=== PATIENT | male | born 1945 | race Caucasian/White ===

== ENCOUNTER 2022-05-02 12:41 | Observation (INO) | payer MEDICARE, SELFPAY ==
[2022-05-02] VITALS (14 sets, daily range): BP systolic 102–135; BP diastolic 47–70; PULSE 70–94; RESP 16–24; TEMP 36.4–37.1; O2SAT 78–96; BMI 38.0; BMI 38.6
--- NOTE | 2022-05-02 13:11 | XR_ITS ---
FINAL REPORT CLINICAL HISTORY: SOA FINDINGS: A single portable view of the chest was obtained. There is cardiomegaly with pulmonary vascular congestion. The mediastinum is within normal limits. There are bilateral pulmonary opacities which may represent pneumonia or edema. The bony thorax is intact. IMPRESSION: Bilateral pneumonia or edema. Reviewed, Interpreted and Dictated by Rm Jeffries III, MD Transcribed by Madiha Michael Authenticated and [facility]
[2022-05-02 13:20] LABS: Coronavirus 19, PCR Not Detected (NotDetected); Influenza A, PCR Not Detected (NotDetected); Influenza B, PCR Not Detected (NotDetected)
--- NOTE | 2022-05-02 13:22 | ECG_ITS ---
APPROVED REPORT Exam: Resting ECG HR:84 bpm ECG Measurements Heart Rate 84 AXES QRSd 86 QRS 89 QT 407 T 40 QTc 448 Conclusion ATRIAL FIBRILLATION ABNORMAL RHYTHM ECG UNCONFIRMED REPORT Electronically signed by : Markus Bravo MD 05/02/2022 19:57:14
[2022-05-02 13:31] LABS: Chloride 91 mmol/L (98-107); Potassium 3.2 mmoL/L (3.5-5.1); Sodium 138 mmol/L (136-145)
[2022-05-02 13:32] LABS: Basophils # 0.1 K/mm3 (0-0.2); Basophils % 0.9 % (0.1-2.0); Eosinophils # 0.5 K/mm3 (0.0-0.4); Eosinophils % 3.6 % (0.1-12.0); Hematocrit 45.8 % (42.0-52.0); Hemoglobin 14.7 g/dL (14.1-18.0); Lymphocytes # 1.2 K/mm3 (0.7-4.5); Lymphocytes % 8.9 % (10-50); Mean Corpuscular HGB Conc 32.1 g/dL (31.8-35.4); Mean Corpuscular Hemoglobin 31.7 pg (27.0-31.2); Mean Platelet Volume 8.7 fl (7.4-10.4); Monocytes # 0.7 K/mm3 (0.1-1.0); Monocytes % 5.1 % (1.7-9.3); Neutrophils # 11.1 K/mm3 (1.8-7.8); Neutrophils % 81.6 % (37.0-80.0); Platelet Count 232 K/mm3 (142-424); Red Blood Count 4.63 M/mm3 (4.60-6.20); Red Cell Distribution Width 14.7 % (11.5-17.5); White Blood Count 13.6 K/mm3 (4.8-10.8)
[2022-05-02 13:34] LABS: Alanine Aminotransferase 11 U/L (12-78); Albumin Level 3.5 g/dl (3.5-5.0); Alkaline Phosphatase 105 U/L (38-126); Anion Gap 12.2 mEq/L (5-15); Aspartate Amino Transferase 21 U/L (17-59); Bilirubin,Total 1.2 mg/dl (0.2-1.3); Blood Urea Nitrogen 8 mg/dl (9-20); Carbon Dioxide 38 mmol/L (22.0-30.0); Creatinine Clearance Estimated 101 mL/min (50-200); Estimated Glomerular Filt Rate 94 ml/min (>60); GFR (African American) 114 ML/MIN (>60); Globulin 3.6 g/dL (1.3-3.2); Glucose 189 mg/dl (74-100); Total Protein,Serum 7.1 g/dl (6.3-8.2)
[2022-05-02 13:41] LABS: Lactic Acid 2.5 mmol/L (0.7-2.1)
[2022-05-02 14:07] LABS: Troponin I < 0.01 ng/ml (0.00-0.034)
--- NOTE | 2022-05-02 14:24 | CA_ITS ---
APPROVED REPORT EXAM: Comprehensive 2D, Doppler, and color-flow Echocardiogram Pit Crane Operator: Sandy Barrera RVT Ht: 5 ft 8 in Wt: 250lbs BSA: 2.25 BP: 133/57 mmHg Indications: SOA,COPD,CHF,HTN,HLD,GERD VERY TDS-BEST EXAM POSSIBLE R/T BODY HABITUS OVERLAYING LUNG 2D Dimensions IVSd 1.35 cm M: 0.6-1.2 LVEF (Visual) 67.20 % PWd 1.35 cm M: 0.6 - 1.2 LVDd 2.98 cm M: 4.2 - 5.9 LVDs 1.91 cm M: 2.5 - 4.0 LVOT 2.29 cm (M/F) 1.5-2.5 M-Mode Dimensions RVDd 3.60 cm (0.9-2.6) LA Diam 5.11 cm (1.9-4.0) LVDd 4.06 cm (3.5-5.7) Ao Diam 3.39 cm (2.0-3.7) IVSd 0.74 cm (0.6-1.1) PWd 0.86 cm (0.6-1.1) EDV (Teich) 72.50 mL LV Diastology E Decel Time 263.00 (160-240 msec) E/A Ratio 0.8 MED E' 5.80 (< 7 cm/sec) E'/MED E' Ratio 17.12 (>14) LAT E' 8.40 (<10 cm/sec) E/LAT E' Ratio 11.82 (>14) Aortic Valve AO Peak GR. 4.80 mmHg Mitral Valve MV E Max Mt. 99.00 (40-130 cm/s) MV A Velocity 120.00 (40-130 cm/s) E/A Ratio 0.83 MV Decel. Time 263.00 (160-240 ms) MV PHT 77.00 ms Pulmonary Valve PV Peak Velocity 74.00 (50-150 cm/s) Tricuspid Valve TR P. Velocity 301.00 cm/s RAP Estimate 10.00 mmHg RVSP 46.20 mmHg Left Ventricle Technically difficult study because of the patient factors and poor acoustic windows. Left atrium is mildly enlarged, left ventricle is normal size mild concentric left ventricular hypertrophy, estimated ejection fraction 55% with no regional wall motion abnormality, grade 1 diastolic dysfunction seen without tissue Doppler evidence of raise left atrial pressure. Right Ventricle Right atrium and right ventricle are moderately enlarged, contractility of the right ventricle is moderately reduced. Aortic Valve Aortic valve is thickened and calcified without aortic stenosis or aortic insufficiency. Mitral Valve Mitral valve leaflets are minimally thickened, there is mild mitral regurgitation. Tricuspid Valve Tricuspid valve is grossly normal, there is mild tricuspid regurgitation, tricuspid regurgitation jet velocity is inadequate for calculation of the right ventricular systolic pressure. Pulmonic Valve Pulmonic valve is poorly visualized. Great Vessels Aortic root is normal size. Inferior vena cava is mildly dilated with normal inspiratory collapse. Pericardium No significant pericardial effusion noted. Conclusion 1. Technically difficult study because of the patient factors and poor acoustic windows. 2. Biatrial enlargement, normal left ventricular size mild concentric left ventricular hypertrophy, estimated ejection fraction 55% with no regional wall motion abnormality, grade 1 diastolic dysfunction seen without tissue Doppler evidence of raise left atrial pressure. 3. Moderately enlarged right ventricle with moderate reduction right ventricular systolic function. 4. Mild mitral and tricuspid regurgitation. 5. No significant pericardial effusion noted. 6. Inferior vena cava is mildly dilated with normal inspiratory collapse. Electronically signed by : Ghanshyam Gonsales MD 05/03/2022 06:24:36
--- NOTE | 2022-05-02 14:31 | HMH.EDGENADL ---
Discharge Plan Disposition Patient Disposition: Admitted as Observation Condition: Fair Prescriptions Prescriptions: No Action bumetanide 2 mg Tablet 2 mg PO DAILY hydrocodone-acetaminophen [Lortab 7.5-325] 7.5-325 mg Tablet 1 tab PO TID PRN (Reason: Pain) pantoprazole 40 mg Tablet,Delayed Release (Dr/Ec) 40 mg PO DAILY metoprolol tartrate 50 mg Tablet 50 mg PO BID aspirin 81 mg Tablet 81 mg PO DAILY rosuvastatin 5 mg Tablet 5 mg PO DAILY alfuzosin 10 mg Tablet Extended Release 24 Hr 10 mg PO DAILY Rx Instructions: administer after the same meal each day Xarelto 20 mg Tablet 20 mg PO DAILY Rx Instructions: must administer with evening meal glipizide 5 mg Tablet Extended Release 24hr 5 mg PO DAILY paroxetine HCl 20 mg Tablet 20 mg PO DAILY Referrals Follow up/Referrals: Travis Knapp MD [Primary Care Provider] - See instructions Clinical Impressions Clinical Impression: Congestive heart failure, Acute and chronic respiratory failure with hypoxia Discharge ED Provider: Edi Up General Adult HPI General Chief complaint: Shortness of Breath/Dyspnea Stated complaint: sob, leg weakness, dizzy Time Seen by Provider: 05/02/22 14:11 Mode of Arrival: Wheelchair Source of Information: Patient Limitations: No Limitations Description of Symptoms (Recalled from ER Triage Doc. by RN): Pt c/o SOA, weakness, and wheeping of BLE. History of Present Illness HPI narrative: History obtained from patient and his niece. He complains of shortness of breath, weakness, dyspnea on exertion. Symptoms are chronic, but he seems to be declining and his niece says that today he was much worse and therefore brings him to the emergency department. Increased swelling of his legs recently. Also has what appears to be a ruptured vesicle on his left leg which is weeping which he just noticed this morning. Denies fever. He has a nonproductive cough. He has COPD. He says that he has been told that he has congestive heart failure as well. He does not have a bath steward but he thinks he may need one. He is a former smoker. He is on oxygen 2 L nasal cannula at home at all times. He says that even wearing his oxygen recently he cannot walk across the room without getting very short of breath. He was admitted to [facility] in July for pneumonia, states he had to be moved to the ICU. He had an episode of rapid heartbeat. He is on Xarelto, he is uncertain why he is on this, he does not know whether his rapid heartbeat was atrial fibrillation. He does note that he has had previous left carotid artery surgery and thinks he might be on the blood thinner because of that. No known h/o DVT/PE. His niece says that she will not take him back to [facility] and this was the next closest hospital, therefore brought him here. He has never been to this hospital before. Nurse states that patient arrived without oxygen on and pulse ox was in the 70s. He was put on 2 L nasal cannula with mild improvement. Flow rate increased to 3 L nasal cannula and pulse ox went to 100%, then was able to be titrated down to 2 L nasal cannula with pulse ox maintaining greater than 90%. Related Data Home Medications Medication Instructions Recorded Confirmed alfuzosin 10 mg tablet,extended 10 mg PO DAILY urination 05/02/22 05/02/22 release 24 hr aspirin 81 mg tablet 81 mg PO DAILY heart 05/02/22 05/02/22 bumetanide 2 mg tablet 2 mg PO DAILY Heart failure 05/02/22 05/02/22 glipizide 5 mg tablet, extended 5 mg PO DAILY Diabetes 05/02/22 05/02/22 release 24 hr hydrocodone 7.5 mg-acetaminophen 1 tab PO TID PRN Pain 05/02/22 05/02/22 325 mg tablet metoprolol tartrate 50 mg tablet 50 mg PO BID Hypertension 05/02/22 05/02/22 pantoprazole 40 mg tablet,delayed 40 mg PO DAILY GERD 05/02/22 05/02/22 release paroxetine HCl 20 mg tablet 20 mg PO DAILY mood 05/02
[2022-05-02 14:41] LABS: ABG Base Excess 8.1 mmol/L (-2.4-2.3); ABG HCO3 31.8 mmhg (22.0-26.0); ABG Oxygen Saturation 89 % (90-100); ABG PCO2 44.9 mmhg (35.0-45.0); ABG PH 7.47 mmol/L (7.35-7.45); ABG PO2 57.3 mmhg (80-100); ABG TCO2 33.2 mmhg (23-27)
--- NOTE | 2022-05-02 14:41 | PC.NURSE ---
PT ASSISTED INTO GOWN. PT MADE AWARE THAT HE WILL BE HAVING AN ECHO. URINAL GIVEN. FAMILY AT BEDSIDE.
[2022-05-02 14:43] LABS: Allen's Test ACCEPTABLE; Oxygen 2LPM %; Source Right Radial
[2022-05-02 14:46] LABS: NT Pro Brain Natriuretic Pep. 2670 pg/mL (0-450)
--- NOTE | 2022-05-02 15:32 | PC.NURSE ---
Pt had 450ML urine output.
--- NOTE | 2022-05-02 17:21 | PC.NURSE ---
Pt arrived to the floor at this time
--- NOTE | 2022-05-02 17:38 | EXP.HP ---
History of Present Illness *Admission Date: 05/02/22 *Reason for visit:: swelling in legs, short of breath *History of present illness: Mr. Robbins is a 77-year-old male with history of COPD on chronic oxygen (2 L), type 2 diabetes on daily insulin, daily anticoagulation (unknown as to why), and chronic pain. He presented to the ER via private car with his niece because of complaint of shortness of breath, weakness, orthopnea. He has chronic shortness of breath but it is gotten worse over the past 4 to 6 weeks per his report. Over the past 2 days he has been able to sleep due to dyspnea at night. Increased swelling in his legs over the past 1 to 2 weeks. His niece has noticed some weeping in his legs (especially the left leg) and development of blisters. He denies any fevers, cough is dry and productive. Denies any confusion, chest pain, nausea or vomiting. He reports having been told that he has a history of congestive heart failure but has never seen cardiology and does not know the last time he had an echo. He is a former smoker, but no tobacco use in years. Continues to dip. Lives at home by himself as his is in a intermediate. Is cared for by family who check on him couple times a week. On arrival to the ER he was hypoxic on room air. Placed back on 2 L with improvement, required 3 however to get to mid 90s for saturations. Has increased work of breathing, respiratory rate in the mid 20s. Pleasant on interview. History obtained from patient and niece at bedside. [facility] Medical History CHF (congestive heart failure) COPD (chronic obstructive pulmonary disease) Diabetes GERD (gastroesophageal reflux disease) Hyperlipidemia Hypertension Family History (Updated 05/02/22 @ 18:40 by Tad Bean MD) No significant family history Social History (Updated 05/02/22 @ 18:41 by Tad Bean MD) Smoking Status: Former smoker alcohol intake: never substance use type: denies use current occupational status: retired Travel in the last 8 weeks: None household members: none lives independently: Yes marital status: diet: diabetic physical activity: none Review of Systems Review of Systems Review of systems:: pertinent systems reviewed and negative unless documented below Constitutional Constitutional: Reports weakness *Musculoskeletal Musculoskeletal: Denies numbness *Neurologic Neurologic: Denies numbness and Reports weakness Meds Home Medications and Allergies Home Medications Medication Instructions Recorded Confirmed Type albuterol sulfate 90 mcg/actuation 2 puff inhalation QID PRN 05/02/22 05/02/22 History aerosol inhaler Shortness Of Breath alfuzosin 10 mg tablet,extended 10 mg PO DAILY urination 05/02/22 05/02/22 History release 24 hr aspirin 81 mg tablet 81 mg PO DAILY heart 05/02/22 05/02/22 History bumetanide 2 mg tablet 2 mg PO DAILY Heart failure 05/02/22 05/02/22 History glipizide 5 mg tablet, extended 5 mg PO DAILY Diabetes 05/02/22 05/02/22 History release 24 hr hydrocodone 7.5 mg-acetaminophen 1 tab PO TID PRN Pain 05/02/22 05/02/22 History 325 mg tablet insulin glargine 100 40 unit SQ DAILY Diabetes 05/02/22 05/02/22 History unit-lixisenatide 33 mcg/mL subcutaneous pen (Soliqua 100/33) metoprolol tartrate 50 mg tablet 50 mg PO BID Hypertension 05/02/22 05/02/22 History pantoprazole 40 mg tablet,delayed 40 mg PO DAILY GERD 05/02/22 05/02/22 History release paroxetine HCl 20 mg tablet 20 mg PO DAILY mood 05/02/22 05/02/22 History rivaroxaban 20 mg tablet (Xarelto) 20 mg PO DAILY Blood thinner 05/02/22 05/02/22 History rosuvastatin 5 mg tablet 5 mg PO DAILY Cholesterol 05/02/22 05/02/22 History New Prescriptions to Start Prescriptions: Allergies Allergy/AdvReac Type Severity Reaction Status Date / Time Sulfa (Sulfonamide Allergy Verified 05/02/22 13:10 Antibiotics) Exam
[2022-05-02 17:40] LABS: Reflex Lactic Add Lactic Reflex
[2022-05-02 18:23] LABS: Lactic Acid Follow Up (RFLX 1) 1.8 mmol/L (0.7-2.1)
[2022-05-02 21:52] LABS: POC Glucose,Bedside 189 (70-110)
[2022-05-03] VITALS (11 sets, daily range): BP systolic 99–114; BP diastolic 43–71; PULSE 62–83; RESP 17–21; TEMP 36.4–36.9; O2SAT 89–94; BMI 37.7
--- NOTE | 2022-05-03 04:34 | PC.NURSE ---
pt restless through the night and slept at intervals, pt is alert and oriented x4, no acute distress, lung sounds with scattered crackles noted, BLE edema, skin tear wound noted to LLE and wrap with xeroform, abd and kerlex, BLE noted with redness and warm to touch, abd large round and distended, active BS, voiding without difficulty, 02 sats 90-91% on 3L pnc, pt complained of generalized pain, lortab given with relief, VSS, pt is alert and oriented x4, no other issues or concerns at this time.
[2022-05-03 06:31] LABS: Chloride 93 mmol/L (98-107); Potassium 3.8 mmoL/L (3.5-5.1); Sodium 138 mmol/L (136-145)
[2022-05-03 06:33] LABS: Blood Urea Nitrogen 9 mg/dl (9-20); Creatinine Clearance Estimated 100 mL/min (50-200); Estimated Glomerular Filt Rate 94 ml/min (>60); GFR (African American) 114 ML/MIN (>60)
[2022-05-03 06:34] LABS: Alanine Aminotransferase 8 U/L (12-78); Alkaline Phosphatase 100 U/L (38-126); Anion Gap 12.8 mEq/L (5-15); Aspartate Amino Transferase 15 U/L (17-59); Bilirubin,Total 0.7 mg/dl (0.2-1.3); Calcium 7.4 mg/dl (8.4-10.2); Carbon Dioxide 36 mmol/L (22.0-30.0); Globulin 3.1 g/dL (1.3-3.2); Glucose 263 mg/dl (74-100); Total Protein,Serum 6.1 g/dl (6.3-8.2)
[2022-05-03 06:35] LABS: Magnesium 1.7 mg/dl (1.6-2.3)
[2022-05-03 06:42] LABS: Basophils # 0.1 K/mm3 (0-0.2); Basophils % 0.7 % (0.1-2.0); Eosinophils # 0.6 K/mm3 (0.0-0.4); Eosinophils % 5.6 % (0.1-12.0); Hematocrit 46.1 % (42.0-52.0); Hemoglobin 14.1 g/dL (14.1-18.0); Lymphocytes # 1.2 K/mm3 (0.7-4.5); Lymphocytes % 11.7 % (10-50); Mean Corpuscular HGB Conc 30.5 g/dL (31.8-35.4); Mean Corpuscular Hemoglobin 30.6 pg (27.0-31.2); Mean Corpuscular Volume 100.3 fl (80-94); Mean Platelet Volume 9.1 fl (7.4-10.4); Monocytes # 0.7 K/mm3 (0.1-1.0); Monocytes % 6.7 % (1.7-9.3); Neutrophils # 7.8 K/mm3 (1.8-7.8); Neutrophils % 75.4 % (37.0-80.0); Platelet Count 214 K/mm3 (142-424); Red Cell Distribution Width 14.7 % (11.5-17.5); White Blood Count 10.3 K/mm3 (4.8-10.8)
[2022-05-03 06:43] LABS: POC Glucose,Bedside 268 (70-110)
--- NOTE | 2022-05-03 08:29 | HMH.PHAINT1 ---
Pharmacy Intervention Comments: HOME MEDICATION RECONCILIATION COMPLETED USING OUTPATIENT PHARMACY LIST.
--- NOTE | 2022-05-03 09:06 | EXP.CARD.CON ---
History of Present Illness History of Present Illness Consult date: 05/03/22 Requesting physician: Tad Bean Consult reason: congestive heart failure Chief complaint: Lower extremity edema and shortness of breath Additional Medical History:: Significant past medical history IDDM Chronic hypoxic respiratory failure HFpEF COPD Mixed hyperlipidemia Essential hypertension Chronic OAC use-patient is unclear why Former smoker currently dip Carotid disease Echo 05/02/2022 Conclusion 1.? Technically difficult study because of the patient factors and poor acoustic windows. 2.? Biatrial enlargement, normal left ventricular size mild concentric left ventricular hypertrophy, estimated ejection fraction 55% with no regional wall motion abnormality, grade 1 diastolic dysfunction seen without tissue Doppler evidence of raise left atrial pressure. 3.? Moderately enlarged right ventricle with moderate reduction right ventricular systolic function. 4.? Mild mitral and tricuspid regurgitation. 5.? No significant pericardial effusion noted. 6.? Inferior vena cava is mildly dilated with normal inspiratory collapse. History of present illness: 77-year-old white male with above past medical history, presented to ER yesterday with complaints of progressive and worsening shortness of breath and bilateral lower extremity edema over the last 4 to 6 weeks. Patient does have a history of COPD which requires chronic oxygen use at 2 L. Patient states that for the last couple of days has not been able to sleep due to orthopnea and that LE edema is getting worse. Niece went to check on him yesterday and noticed blisters and swelling to legs prompting her to bring him to ED (left worse than right). On presentation to ER patient was hypoxic on room air which improved with 2L NC, ultimately requiring 3L to maintain sat in the mid 90s. Chest x-ray showed bilateral pneumonia or edema. EKG showedNSR rate of 84 with occasional PACs. Labs were significant as follows: WBC 13.6, potassium 3.2, creatinine 0.8, glucose 189, lactate 2.5, proBNP 2670. Arterial blood gas as follows: pH 7.4, PCO2 44.9, PO2 57.3, HCO3 31.8, O2 saturation 89, base excess 8.1. Patient reports that he does have a history of congestive heart failure, however, has never seen a cardiology. States that he was inpatient at [facility] in July 2021 for pneumonia and during that time had an episode of a fast heart rate. Patient unable to verify if the heart rate was A. fib. Patient takes Xarelto 20 mg daily, but is unsure why. Reports previous left carotid artery surgery. This morning patient is resting comfortably in bed in low fowlers position, reports breathing is better today. Denies current chest pain or recent history of chest pain. [facility] Medical History CHF (congestive heart failure) COPD (chronic obstructive pulmonary disease) Diabetes GERD (gastroesophageal reflux disease) Hyperlipidemia Hypertension Family History (Updated 05/02/22 @ 18:40 by Tad Bean MD) Other No significant family history Social History (Updated 05/02/22 @ 18:41 by Tad Bean MD) Smoking Status: Former smoker alcohol intake: never substance use type: denies use current occupational status: retired Travel in the last 8 weeks: None household members: none lives independently: Yes marital status: diet: diabetic physical activity: none additional social history: is a resident of [facility]. Review of Systems Constitutional Constitutional: Reports weakness *Musculoskeletal Musculoskeletal: Denies numbness *Neurologic Neurologic: Denies numbness and Reports weakness Exam Data for Last 24 hours Vital signs and Labs for Last 24 Hours: Temp Pulse Resp BP Pulse Ox 98.4 F 67 21 99/45 L 90 L 05/03/22 08:00 05/03/22 08:00 05/03/22 08:00 05/03/22 08:00 05/03/22 08:00
--- NOTE | 2022-05-03 09:09 | CA_ITS ---
FINAL REPORT CLINICAL HISTORY: edema, redness, wounded left lower leg FINDINGS: Color Doppler, duplex Doppler and compression sonography of the bilateral lower extremities was performed. There is no evidence of deep venous thrombosis from the level of the groin to the calf. Unable to assess left lower leg due to wound dressing. The deep veins are patent and compressible. IMPRESSION: No evidence of deep venous thrombosis bilateral lower extremities, however unable to assess left lower leg due to wound dressing. Reviewed, Interpreted and Dictated by Rm Jeffries III, MD Transcribed by Klarissa Rojas Authenticated and [facility]
--- NOTE | 2022-05-03 09:41 | CA_ITS ---
FINAL REPORT TECHNIQUE: Color Doppler, duplex Doppler and coffman scale sonography of the bilateral neck arterial vasculature was performed. Velocities were measured in the carotid arteries. Stenosis evaluation based on the validated velocity criteria. CLINICAL HISTORY: ZAIN,HX LT ENDARDECTOMY FINDINGS: The peak systolic velocity of the right common carotid artery is 65 cm/s. The peak systolic velocity of the right internal carotid artery is 153 cm/s and end diastolic velocity 58 cm/s. The ICA/CCA ratio is 2.6. A small to moderate amount of plaque is present. The right external carotid artery is patent. The right vertebral artery is patent with antegrade flow. The peak systolic velocity of the left common carotid artery is 98 cm/s. The peak systolic velocity of the left internal carotid artery is 81 cm/s and end diastolic velocity 26 cm/s. The ICA/CCA ratio is 1.1. A small to moderate amount of plaque is present. The left external carotid artery is patent.The left vertebral artery is patent with antegrade flow. IMPRESSION: Less than 50% bilateral carotid stenoses. Bilateral patent vertebral arteries with antegrade flow. If indicated, CTA or MRA could further evaluate. Reviewed, Interpreted and Dictated by Rm Jeffries III, MD Transcribed by Klarissa Rojas Authenticated and . [facility]
--- NOTE | 2022-05-03 09:55 | HMH.OTEV ---
OT Inpatient Evaluation Rehab OT IP Evaluation Start: 05/03/22 07:00 Freq: ONCE Status: Active Protocol: Document 05/03/22 09:40 EMIR (Rec: 05/03/22 09:55 [id number] Rehab OT IP Assessment Subjective History Pt oriented x 3 on arrival. Pt agreeable to engage in therapy evaluation. Pt was admitted via ED on 05/02/22 due to swelling in legs and shortness of breath. Pt reports prior to being admitted to the hospital he was living at home alone. Pt explains his is currently residing at [facility]. Pt also explains within the past 3 months he has been experiencing a decline in health and independence with ADLs/IADLs. Pt's niece completes all IADLs for him. He claims to be independent with dressing. However during evaluation pt was dependent upon therapist to don socks. He did not provide a definite answer when asked how he showers. Pt does wear oxygen at all times at home. He still drives. He does not use a walker or cane during ambulation. Subjective I do what I can. Objective Patient Orientation Person,Place,Birthday Upper Extremity Gross ROM Min Limitation <25% Shoulder ROM Limitations Muscle Weakness Elbow ROM Limitations Muscle Weakness Wrist Limitations of Range of Motion Muscle Weakness Bed Mobility bed mobility-scooting,bed mobility - supine/sit,bed mobility - rolling Assist Level Minimal x 1 (25% assist) Transfer Training Sit/Stand Transfer Assist Level Contact Guard/Hand Hold Chair Transfer Ability Contact Guard/Hand Hold Chair Transfer Technique Sit to/from Ambulatory Chair Transfer Assistive Devices None Lower Body Dressing Ability Maximum Assistance Rehab OT IP prob,goals,plan Problems Date of Evaluation: 05/03/22 OT IP Problems Bed Mobility,Transfers,Balance ,
--- NOTE | 2022-05-03 10:09 | EXP.ACUTE.PN ---
Subjective *Date: 05/03/22 *Time: 12:56 Interval history: Mr. Robbins did well overnight. Still tolerating 3 L nasal cannula oxygen. States that shortness of breath is somewhat better, was able to sleep laying down on his side. Diuresed quite well with IV Bumex. -1.8 L since admission. Denies any chest pain, nausea, vomiting. Tolerating fair p.o. intake. Still having swelling in his legs but marginally improved on exam. Still complains of tenderness with his edema. No confusion. Of note, bedbugs found this morning after morning rounds. Patient decontaminated. Medical Exam Vital signs and Labs for Last 24 Hours: Temp Pulse Resp BP Pulse Ox 98.4 F 67 21 99/45 L 90 L 05/03/22 08:00 05/03/22 08:00 05/03/22 08:00 05/03/22 08:00 05/03/22 08:00 Laboratory Results - last 24 hr 05/02/22 13:05: WBC 13.6 H, RBC 4.63, Hgb 14.7, Hct 45.8, MCV 99.0 H, MCH 31.7 H, MCHC 32.1, RDW 14.7, Plt Count 232, MPV 8.7, Neut % (Auto) 81.6 H, Lymph % (Auto) 8.9 L, [place] % (Auto) 5.1, Eos % (Auto) 3.6, Baso % (Auto) 0.9, Neut # (Auto) 11.1 H, Lymph # (Auto) 1.2, [place] # (Auto) 0.7, Eos # (Auto) 0.5 H, Baso # (Auto) 0.1 05/02/22 13:05: Sodium 138, Potassium 3.2 L, Chloride 91 L, Carbon Dioxide 38 H, Anion Gap 12.2, BUN 8 L, Creatinine 0.80, Estimated Creat Clear 101, Estimated GFR 94, Est GFR ( Amer) 114, Glucose 189 H, Calcium 8.0 L, Total Bilirubin 1.2, AST 21, ALT 11 L, Alkaline Phosphatase 105, Troponin I < 0.01, Total Protein 7.1, Albumin 3.5, Globulin 3.6 H, Albumin/Globulin Ratio 1.0 L 05/02/22 13:05: Lactate 2.5 H 05/02/22 13:05: NT-Pro-B Natriuret Pep 2670 H 05/02/22 13:14: SARS-CoV-2 (PCR) Not detected, Influenza A Untype (PCR) Not detected, Influenza Type B (PCR) Not detected 05/02/22 14:27: Specimen Source Right radial, O2 % 2lpm, ABG pH 7.47 H, ABG pCO2 44.9, ABG pO2 57.3 L, ABG HCO3 31.8 H, ABG Total CO2 33.2 H, ABG O2 Saturation 89 L, ABG Base Excess 8.1 H, Edmundo Test Acceptable 05/02/22 17:55: Lactate 1.8 05/02/22 21:14: POC Glucose 189 H 05/03/22 05:45: WBC 10.3, RBC 4.60, Hgb 14.1, Hct 46.1, MCV 100.3 H, MCH 30.6, MCHC 30.5 L, RDW 14.7, Plt Count 214, MPV 9.1, Neut % (Auto) 75.4, Lymph % (Auto) 11.7, [place] % (Auto) 6.7, Eos % (Auto) 5.6, Baso % (Auto) 0.7, Neut # (Auto) 7.8, Lymph # (Auto) 1.2, [place] # (Auto) 0.7, Eos # (Auto) 0.6 H, Baso # (Auto) 0.1 05/03/22 05:45: Sodium 138, Potassium 3.8, Chloride 93 L, Carbon Dioxide 36 H, Anion Gap 12.8, BUN 9, Creatinine 0.80, Estimated Creat Clear 100, Estimated GFR 94, Est GFR ( Amer) 114, Glucose 263 H D, Calcium 7.4 L, Magnesium 1.7, Total Bilirubin 0.7, AST 15 L D, ALT 8 L D, Alkaline Phosphatase 100, Total Protein 6.1 L, Albumin 3.0 L D, Globulin 3.1, Albumin/Globulin Ratio 1.0 L 05/03/22 06:33: POC Glucose 268 H I & O for Labs for Last 24 Hours: Intake & Output 04/30/22 05/01/22 05/02/22 05/03/22 23:59 23:59 23:59 23:59 Intake Total 240 / 360 120 / 120 Output Total 1650 / 1650 575 / 575 Balance -1410 / -1290 -455 / -455 Weight 115.354 kg 112.973 kg Head: Present atraumatic and normocephalic Eyes: Absent eye discharge ENT: Present normal exam and mucous membranes moist Neck: Present normal inspection Respiratory: Present accessory muscle use and diminished air movement; Absent wheezes or crackles Cardiac: Present Reg Rate and Rhythm and S1/S2; Absent No Murmur or pedal pulses present Comment:: peripheral pulses diminished, identified with doppler. GI: Present soft and other (protuberant) Rectal (male): Present deferred (male): Present deferred Extremities: Present edema; Absent clubbing or cyanosis Skin: Present intact and erythema (bilateral legs, no warmth; ruptured blister of left keating, clean bandage in place.); Absent cyanosis Neuro: Present alert and oriented x 3; Absent Numbness Assessment and Plan *Assessment and plan (1) Acute on chronic heart failure with preserved ejection fraction (HFpEF): Status: Acute Category: Medical Code(s):
--- NOTE | 2022-05-03 11:09 | HMH.PTWOUND ---
Rehab Inpt Wound Evaluation Rehab IP Wound Evaluation Start: 05/03/22 09:09 Freq: ONCE Status: Active Protocol: Document 05/03/22 11:04 MYRANDA (Rec: 05/03/22 11:08 PHORSHIMA [id number]) Rehab PT Wound Assessment Subjective Subjective Pt is 77 yowm adm to [facility] with COPD and CHF exac. He has suffered increased SOA and generalized weakness for several wks now. He also presents with L anterior keating wound present for 2-3 days. He reports he lives alone, no steps to enter the home, uses a cane for ambulation sometimes . Wound Left Posterior Keating Wound Type Stasis Ulcer Is This a Chronic Wound No Wound Length (cm) 7.3 Wound Width (cm) 3.8 Wound Depth (cm) 0 Wound Bed Appearance Beefy Red Percentage Granulated (%) 100 Wound Margins Description Macerated Surrounding Tissue Appearance Wood-Ridge Edema Type Pitting Edema Degree 2+ Query Text:1+ Trace, Barely Detectable, Rebound 15-30 seconds 2+ Moderate, Slight Indentation, Rebound 10-20 seconds 3+ Deep, Deeper Indentation, Rebound > 30 seconds 4+ Very Deep, Rebound > 60 seconds Edema Appearance Puffy Wound Drainage Description Serous Drainage Amount Moderate Dressing Status Changed Wound Topical Solution/Irrigant Saline Irrigant Primary Dressing Unna Boot Wound Secondary Dressing Type Gauze Roll/Wrap,Adhering Gauze Roll Wound Debridement Method Gauze Wound Debridement Amount of Tissue Minimal Removed Dressing Change Patient Tolerance Tolerated Well Plan/Recommendation Comment Plan for unna boot dressing changes performed by PT or NSG staff as needed once every 3- 4 days until d/c. after d/c he will need short term rehab vs for dressing changes. Eval Complexity Eval Charge Codes 31577 - Moderate Complexity PHYSICIAN CERTIFICATION: I certify the specified therapy services for Rm Robbins are required, authorized, and reviewed every 30 days.
--- NOTE | 2022-05-03 11:11 | HMH.PTEV ---
Physical Therapy Evaluation Rehab PT IP Evaluation Start: 05/03/22 07:56 Freq: ONCE Status: Active Protocol: Document 05/03/22 11:09 PHORSHIMA (Rec: 05/03/22 11:11 PHORNE [id number]) Subjective/History History History Pt is 77 yowm adm to [facility] with COPD and CHF exac. He has suffered increased SOA and generalized weakness for several wks now. He also presents with L anterior keating wound present for 2-3 days. He reports he lives alone, no steps to enter the home, uses a cane for ambulation sometimes . Subjective Subjective TTP: 2/4 in L lower leg. 2+ pitting edema noted. Rehab PT IP Eval Objective Appearance Patient Behavior Appropriate Patient Orientation Person,Place,Time Difficulty following instructions none Speech Pattern Clear Ambulation Patient Able to Ambulate Yes Ambulation Observation IP General Gait Pattern Observation Wide Based Gait,Shuffling Step Ambulation Distance (feet) 15 Ambulation Assistive Device None Ambulation Ability Contact Guard/Hand Hold Balance Ability to Arise Able, uses arms to help Sitting Balance Steady, safe Standing Balance Steady, wide stance Dynamic Sitting Balance Ability Good Dynamic Standing Balance Ability Fair Transfers Bed Transfer Ability Contact Guard/Hand Hold Chair Transfer Ability Minimal x 1 (25% assist) Sit to Stand Bed Transfer Ability Minimal x 1 (25% assist) Sit to Stand Chair Transfer Ability Minimal x 1 (25% assist) Rehab PT IP prob,goals,plan Problems Date of Evaluation: 05/03/22 PT IP Problems Bed Mobility,Transfers,Gait, Self care Rehab Potential Rehab Potential Good Plan PT Intervention Plan Bed Mobility,Transfers,Gait, Self care,Safety,Therapeutic Exercise PT Plan Frequency BID Duration LOS Discharge Goals Bed Transfer Ability Contact Guard/Hand Hold Sit to Stand Chair Transfer Ability Contact Guard/Hand Hold Ambulation Assistive Device None Ambulation Distance (feet) 25 Discharge Plan PT Discharge Plan Pt is most appropriate for rehab placement at this time, If he does return home he will need HHPT for further
[2022-05-03 11:19] LABS: Chol/HDL Ratio 3.7 (1-3.5); Cholesterol 81 mg/dl (140-200); HDL Cholesterol 22 mg/dl (40-60); Triglycerides 85 mg/dl (30-150); VLDL Cholesterol 17 mg/dL (0-40)
[2022-05-03 11:30] LABS: Direct LDL Cholesterol 43.21 mg/dL (100-129)
--- NOTE | 2022-05-03 11:50 | HMH.OTEV ---
OT Inpatient Evaluation Rehab OT IP Evaluation Start: 05/03/22 07:00 Freq: ONCE Status: Active Protocol: Document 05/03/22 09:40 EMIR (Rec: 05/03/22 09:55 [id number] Rehab OT IP Assessment Subjective History Pt oriented x 3 on arrival. Pt agreeable to engage in therapy evaluation. Pt was admitted via ED on 05/02/22 due to swelling in legs and shortness of breath. Pt reports prior to being admitted to the hospital he was living at home alone. Pt explains his is currently residing at [facility]. Pt also explains within the past 3 months he has been experiencing a decline in health and independence with ADLs/IADLs. Pt's niece completes all IADLs for him. He claims to be independent with dressing. However during evaluation pt was dependent upon therapist to don socks. He did not provide a definite answer when asked how he showers. Pt does wear oxygen at all times at home. He still drives. He does not use a walker or cane during ambulation. Subjective I do what I can. Objective Patient Orientation Person,Place,Birthday Upper Extremity Gross ROM Min Limitation <25% Shoulder ROM Limitations Muscle Weakness Elbow ROM Limitations Muscle Weakness Wrist Limitations of Range of Motion Muscle Weakness Bed Mobility bed mobility-scooting,bed mobility - supine/sit,bed mobility - rolling Assist Level Minimal x 1 (25% assist) Transfer Training Sit/Stand Transfer Assist Level Contact Guard/Hand Hold Chair Transfer Ability Contact Guard/Hand Hold Chair Transfer Technique Sit to/from Ambulatory Chair Transfer Assistive Devices None Lower Body Dressing Ability Maximum Assistance Rehab OT IP prob,goals,plan Problems Date of Evaluation: 05/03/22 OT IP Problems Bed Mobility,Transfers,Balance ,
[2022-05-03 12:13] LABS: POC Glucose,Bedside 139 (70-110)
--- NOTE | 2022-05-03 13:14 | SW/DCPLANNER ---
Addendum entered by Becky Smith 05/05/22 12:33: Marylu chisholm/ [facility] stated they will deliver portable O2 tank to [facility] for transport. Addendum entered by Becky Smith 05/05/22 09:28: This patient has been approved to discharge to [facility] level of care today. COVID swab has been collected and resulted negative. Patient will discharge today. Addendum entered by Becky Smith 05/04/22 09:31: This patient has been accepted to [facility] level of care pending precert. Per Roderick chisholm/ [facility] precert has been started at this time. I will update patient and Dr Bean. Original Note: I spoke with this patient regarding plans once medically stable for discharge. PT/OT has recommended SNF level of care at time of discharge. Patient stated that he resides in [place] and his is currently placed at [facility]. Patient is agreeable to placement at [facility]. I have attempted to contact Admission's at [facility]: no answer at this time/patient information has been faxed. Patient could be ready for discharge tomorrow.
[2022-05-03 16:15] LABS: POC Glucose,Bedside 165 (70-110)
--- NOTE | 2022-05-03 20:04 | PC.NURSE ---
Pt is A/Ox4. He has been up to the chair a couple times today, and has ambulated to the bathroom. He had a BM today. There was a bed bug that was found on pt, and was sent down to lab for conformation. His room was stripped, belongings sent home with niece, bathed, and cleaned by EVS. He has a insulin pen in the omni. He has weston poot on LLE. Hard to find petal pulses. He has tolerated diet well. 3LNC.
[2022-05-03 20:59] LABS: POC Glucose,Bedside 143 (70-110)
[2022-05-04] VITALS (15 sets, daily range): BP systolic 95–126; BP diastolic 52–78; PULSE 60–85; RESP 15–20; TEMP 36.4–37.1; O2SAT 90–95; BMI 37.0
--- NOTE | 2022-05-04 05:01 | PC.NURSE ---
PT HAS C/O GENERAL ALL OVER PAIN THIS SHIFT AND WAS MEDICATED PER SEP. HAS HAD NO OTHER C/O. EXP RHONCHI IN UPPER BASES. REMAINS ON 3 L AND TOLERATES WELL WITH NO C/O CP OR SOA AND O2 SAT 90-94%. REMAINS NSR ON TELEMETRY HR 67-85. SBP HAS BEEN 95-108. VOIDS PER URINAL. COBAN/BANDAGE NOTED TO RLE AND REDNESS/PITTING EDEMA NOTED TO BLE. +1 PULSES IN BLE CALL LIGHT IN REACH.
[2022-05-04 06:39] LABS: POC Glucose,Bedside 197 (70-110)
[2022-05-04 06:43] LABS: Basophils # 0.1 K/mm3 (0-0.2); Basophils % 0.9 % (0.1-2.0); Eosinophils # 0.6 K/mm3 (0.0-0.4); Eosinophils % 5.8 % (0.1-12.0); Hematocrit 44.4 % (42.0-52.0); Hemoglobin 13.9 g/dL (14.1-18.0); Lymphocytes # 1.3 K/mm3 (0.7-4.5); Lymphocytes % 12.6 % (10-50); Mean Corpuscular HGB Conc 31.4 g/dL (31.8-35.4); Mean Corpuscular Volume 98.9 fl (80-94); Mean Platelet Volume 8.5 fl (7.4-10.4); Monocytes # 0.7 K/mm3 (0.1-1.0); Monocytes % 6.6 % (1.7-9.3); Neutrophils # 7.9 K/mm3 (1.8-7.8); Neutrophils % 74.1 % (37.0-80.0); Platelet Count 214 K/mm3 (142-424); Red Blood Count 4.49 M/mm3 (4.60-6.20); Red Cell Distribution Width 14.5 % (11.5-17.5); White Blood Count 10.7 K/mm3 (4.8-10.8)
[2022-05-04 08:37] LABS: Chloride 93 mmol/L (98-107); Sodium 137 mmol/L (136-145)
[2022-05-04 08:39] LABS: Alanine Aminotransferase 6 U/L (12-78); Aspartate Amino Transferase 14 U/L (17-59); Blood Urea Nitrogen 11 mg/dl (9-20); Creatinine Clearance Estimated 99 mL/min (50-200); Estimated Glomerular Filt Rate 94 ml/min (>60); GFR (African American) 114 ML/MIN (>60)
[2022-05-04 08:39] LABS: POC Glucose,Bedside 157 (70-110)
[2022-05-04 08:40] LABS: Albumin Level 2.8 g/dl (3.5-5.0); Albumin/Globulin Ratio 0.9 (1.1-1.8); Alkaline Phosphatase 94 U/L (38-126); Bilirubin,Total 0.6 mg/dl (0.2-1.3); Calcium 7.6 mg/dl (8.4-10.2); Carbon Dioxide 39 mmol/L (22.0-30.0); Globulin 3.2 g/dL (1.3-3.2); Glucose 223 mg/dl (74-100); Magnesium 1.8 mg/dl (1.6-2.3)
--- NOTE | 2022-05-04 09:12 | EXP.CARD.PN ---
Subjective Subjective Date: 05/04/22 Time: 09:13 Principal diagnosis: LE edema and sob Interval history: Patient sitting on side of bed in NAD this am. Reports sob is about the same. Patient is -1860 balance. Exam Data for Last 24 hours Vital signs and Labs for Last 24 Hours: Temp Pulse Resp BP Pulse Ox 98.0 F 67 16 99/54 L 95 05/04/22 07:47 05/04/22 07:47 05/04/22 07:47 05/04/22 07:47 05/04/22 07:47 Laboratory Results - last 24 hr 05/03/22 05:45: Triglycerides 85, Cholesterol 81 L, LDL Cholesterol Direct 43.21 L, VLDL Cholesterol 17, HDL Cholesterol 22 L, Cholesterol/HDL Ratio 3.7 H 05/03/22 12:06: POC Glucose 139 H 05/03/22 15:38: POC Glucose 165 H 05/03/22 20:49: POC Glucose 143 H 05/04/22 06:04: WBC 10.7, RBC 4.49 L, Hgb 13.9 L, Hct 44.4, MCV 98.9 H, MCH 31.0, MCHC 31.4 L, RDW 14.5, Plt Count 214, MPV 8.5, Neut % (Auto) 74.1, Lymph % (Auto) 12.6, [place] % (Auto) 6.6, Eos % (Auto) 5.8, Baso % (Auto) 0.9, Neut # (Auto) 7.9 H, Lymph # (Auto) 1.3, [place] # (Auto) 0.7, Eos # (Auto) 0.6 H, Baso # (Auto) 0.1 05/04/22 06:04: Sodium 137, Potassium 4.0, Chloride 93 L, Carbon Dioxide 39 H, Anion Gap 9.0, BUN 11, Creatinine 0.80, Estimated Creat Clear 99, Estimated GFR 94, Est GFR ( Amer) 114, Glucose 223 H, Calcium 7.6 L, Magnesium 1.8, Total Bilirubin 0.6, AST 14 L, ALT 6 L, Alkaline Phosphatase 94, Total Protein 6.0 L, Albumin 2.8 L, Globulin 3.2, Albumin/Globulin Ratio 0.9 L 05/04/22 06:28: POC Glucose 197 H 05/04/22 08:19: POC Glucose 157 H I & O for Last 24 hours: Intake & Output 05/01/22 05/02/22 05/03/22 05/04/22 23:59 23:59 23:59 23:59 Intake Total 240 / 360 600 / 600 360 / 360 Output Total 1650 / 1650 1925 / 2325 1350 / 1350 Balance -1410 / -1290 -1325 / -1725 -990 / -990 Weight 254 lb 5 oz 248 lb 14.43 oz 244 lb 12.8 oz Constitutional Constitutional: no acute distress *Routine Respiratory Exam Respiratory: Present diminished air movement and symmetric chest movement *Routine Cardiovascular Exam Cardiovascular: Present RRR, Normal S1 and Normal S2 *Routine Abdominal Exam Abdominal: Present soft and normoactive bowel sounds; Absent tenderness *Routine Extremities Exam Extremities: Present edema, full ROM and pulses intact Comments: Bilateral DP pulses dopplered. Swelling noted bilaterally from knees down, worse in feet. Dressing in on LLE. Right LE is red and slighly warm. *Routine Skin Exam Skin: Present intact, dry and warm Detailed Neck Exam: Thyroids Thyroid: Absent bruit Progress Note: A&P Assessment and plan (1) Acute on chronic heart failure with preserved ejection fraction (HFpEF): Status: Acute (2) Chronic respiratory failure with hypoxia: Status: Chronic (3) Class 2 obesity: Status: Chronic (4) COPD (chronic obstructive pulmonary disease): Status: Chronic (5) Hyperlipidemia: Status: Chronic (6) Type 2 diabetes mellitus: Status: Chronic (7) Essential hypertension: Status: Chronic Assessment and Plan Assessment and Plan for All Diagnoses:: Acute on chronic hypoxic respiratory failure/COPD -Combination of COPD and volume overload -PE cannot be ruled out at this time due to right ventricle enlargement and reduced EF.? No previous echo for comparison.? Compliance with Xarelto 20 mg daily is questionable.? Swelling and redness noted to lower extremities, recommend rule out DVT. -Resting comfortably on 3 L maintaining sats in the mid 90s -Continue Bumex 2 mg IV twice daily -Would likely benefit from pulmonary consult for chronic management. 05/04- Repeat chest xray pending. Bilateral LE Ultrasound negative for dvt. HFpEF NYHA IV- -Echo from 05/02/2022-biatrial enlargement, normal LV size, left ventricular hypertrophy, estimated EF 55 with no regional wall abnormality noted/diastolic dysfunction grade 1, moderately enlarged right ventricle with moderate reduction of right ventricular systolic function -Continue diuresis with Bumex 2 mg I
--- NOTE | 2022-05-04 09:17 | XR_ITS ---
FINAL REPORT CLINICAL HISTORY: volume overload COMPARISON: May 02, 2022 FINDINGS: A single portable view of the chest was obtained. There is cardiomegaly. The mediastinum is within normal limits. There is some fullness in the left hilum which is more prominent than on the prior exam of uncertain significance. Some of this could be due to mild rotation of the patient. There are bibasilar pulmonary opacities, atelectasis or pneumonia with partially improved aeration of the lungs. The bony thorax is intact. IMPRESSION: Slightly more prominent fullness in the left hilum of uncertain significance. Recommend follow-up PA and lateral chest radiographs or chest CT. Bibasilar atelectasis or pneumonia at with partially improved aeration of the lungs. Reviewed, Interpreted and Dictated by Rm Jeffries III, MD Transcribed by Madiha Michael Authenticated and [facility]
--- NOTE | 2022-05-04 10:52 | EXP.ACUTE.PN ---
Subjective *Date: 05/04/22 *Time: 11:12 Interval history: Mr. Robbins has continued to diurese well with Bumex twice a day. Still having shortness of breath and cough. Cough not really productive per his report. Remains afebrile. Oxygen saturations between 88 and 92 on 2 L nasal cannula oxygen. Requesting increased frequency of his inhalers. Denies nausea, vomiting, chest pain. Denies confusion. Having chronic pain in multiple joints for which she is on his home opiate regimen. Tolerating good p.o. intake. Repeat chest x-ray obtained this morning, concerning for right lower lobe pneumonia that was difficult to assess on initial imaging due to volume overload and pulmonary edema. Medical Exam Vital signs and Labs for Last 24 Hours: Temp Pulse Resp BP Pulse Ox 98.0 F 70 16 99/54 L 95 05/04/22 07:47 05/04/22 08:00 05/04/22 07:47 05/04/22 07:47 05/04/22 07:47 Laboratory Results - last 24 hr 05/03/22 05:45: Triglycerides 85, Cholesterol 81 L, LDL Cholesterol Direct 43.21 L, VLDL Cholesterol 17, HDL Cholesterol 22 L, Cholesterol/HDL Ratio 3.7 H 05/03/22 12:06: POC Glucose 139 H 05/03/22 15:38: POC Glucose 165 H 05/03/22 20:49: POC Glucose 143 H 05/04/22 06:04: WBC 10.7, RBC 4.49 L, Hgb 13.9 L, Hct 44.4, MCV 98.9 H, MCH 31.0, MCHC 31.4 L, RDW 14.5, Plt Count 214, MPV 8.5, Neut % (Auto) 74.1, Lymph % (Auto) 12.6, [place] % (Auto) 6.6, Eos % (Auto) 5.8, Baso % (Auto) 0.9, Neut # (Auto) 7.9 H, Lymph # (Auto) 1.3, [place] # (Auto) 0.7, Eos # (Auto) 0.6 H, Baso # (Auto) 0.1 05/04/22 06:04: Sodium 137, Potassium 4.0, Chloride 93 L, Carbon Dioxide 39 H, Anion Gap 9.0, BUN 11, Creatinine 0.80, Estimated Creat Clear 99, Estimated GFR 94, Est GFR ( Amer) 114, Glucose 223 H, Calcium 7.6 L, Magnesium 1.8, Total Bilirubin 0.6, AST 14 L, ALT 6 L, Alkaline Phosphatase 94, Total Protein 6.0 L, Albumin 2.8 L, Globulin 3.2, Albumin/Globulin Ratio 0.9 L 05/04/22 06:28: POC Glucose 197 H 05/04/22 08:19: POC Glucose 157 H I & O for Labs for Last 24 Hours: Intake & Output 05/01/22 05/02/22 05/03/22 05/04/22 23:59 23:59 23:59 23:59 Intake Total 240 / 360 600 / 600 360 / 360 Output Total 1650 / 1650 1925 / 2325 1350 / 1350 Balance -1410 / -1290 -1325 / -1725 -990 / -990 Weight 115.354 kg 112.9 kg 111.039 kg Head: Present atraumatic and normocephalic Eyes: Absent eye discharge ENT: Present normal exam and mucous membranes moist Neck: Present normal inspection Respiratory: Present accessory muscle use, prolonged expiratory phase and diminished air movement (Bilaterally, poor air movement in bases.); Absent wheezes or crackles Cardiac: Present Reg Rate and Rhythm, S1/S2 and pedal pulses present; Absent No Murmur Comment:: peripheral pulses diminished GI: Present soft and other (protuberant) Extremities: Present edema (Interval improvement, 1+ to knees. Wrinkling of skin) and cyanosis (Toes cyanotic bilaterally, marginally cool); Absent clubbing Skin: Present intact and erythema (bilateral legs, no warmth; ruptured blister of left keaitng, clean bandage in place.) Neuro: Present alert and oriented x 3; Absent Numbness Assessment and Plan *Assessment and plan (1) Acute on chronic heart failure with preserved ejection fraction (HFpEF): Status: Acute Category: Medical Code(s): I50.33 - Acute on chronic diastolic (congestive) heart failure (2) COPD exacerbation: Status: Acute Category: Medical Code(s): J44.1 - Chronic obstructive pulmonary disease with (acute) exacerbation (3) Right lower lobe pneumonia: Problem details: Community-acquired, present on admission Status: Acute Qualifiers: Pneumonia type: due to unspecified organism Qualified Code(s): J18.9 - Pneumonia, unspecified organism Category: Medical Code(s): J18.9 - Pneumonia, unspecified organism (4) Chronic respiratory failure with hypoxia: Status: Chronic Category: Medical Code(s): J96
--- NOTE | 2022-05-04 12:00 | EXP.PULM.CON ---
History of Present Illness History of present illness: Mr. Robbins is a 77-year-old male carries a diagnosis of COPD, chronic hypoxic respiratory failure on 2 L oxygen therapy, diastolic heart failure, diabetes presents hospital worsening respiratory distress along with worsening lower extremity swelling has been diuresing since admission with improvement in his respiratory status Pulmonary was called to further evaluate the possible pulmonary etiology of the patient's current ongoing symptoms and also establish care with pulmonary. Shortness of breath chronic associated with recent progressive worsening respiratory distress, productive phlegm and worsening lower extremity swelling. [facility] Medical History (Updated 05/04/22 @ 13:28 by Ignacia Wiseman MD) CHF (congestive heart failure) COPD (chronic obstructive pulmonary disease) COPD exacerbation Diabetes GERD (gastroesophageal reflux disease) Hyperlipidemia Hypertension Pneumonia Family History (Updated 05/02/22 @ 18:40 by Tad Bean MD) Other No significant family history Social History (Updated 05/02/22 @ 18:41 by Tad Bean MD) Smoking Status: Former smoker alcohol intake: never substance use type: denies use current occupational status: retired Travel in the last 8 weeks: None household members: none lives independently: Yes marital status: diet: diabetic physical activity: none additional social history: is a resident of [facility]. Review of Systems Constitutional Constitutional: Reports fatigue, Reports snoring and Reports weakness Eyes Eyes: Denies eye discharge, Denies dry eyes, Denies irritation and Denies itchy eyes ENT Ears, Nose, Mouth, and Throat: Denies epistaxis, Denies facial pain, Denies lip swelling and Denies throat swelling *Cardiovascular Cardiovascular: Reports dyspnea, Reports dyspnea on exertion, Reports leg edema and Reports palpitations *Respiratory Respiratory: Reports chest congestion, Reports cough, Reports dyspnea, Reports dyspnea on exertion, Reports excessive phlegm production, Reports snoring and Reports wheezing *Gastrointestinal Gastrointestinal: Denies abdominal pain, Denies belching and Denies cramping *Musculoskeletal Musculoskeletal: Denies numbness *Neurologic Neurologic: Denies numbness and Reports weakness Psychiatric Psychiatric: Denies homicidal ideation and Denies suicidal ideation Endocrine Endocrine: Reports fatigue, Denies heat intolerance and Reports palpitations Hematologic/Lymphatic Hematologic/Lymphatic: Denies easy bleeding and Denies lymphadenopathy Allergic/Immunologic Allergic/Immunologic: Denies itchy eyes, Denies lip swelling, Denies throat swelling and Reports wheezing Pulmonology Exam Inpatient Vital signs and Labs for Last 24 Hours: Temp Pulse Resp BP Pulse Ox 97.6 F 64 16 109/58 L 95 05/04/22 11:20 05/04/22 11:20 05/04/22 11:20 05/04/22 11:20 05/04/22 11:20 Laboratory Results - last 24 hr 05/03/22 12:06: POC Glucose 139 H 05/03/22 15:38: POC Glucose 165 H 05/03/22 20:49: POC Glucose 143 H 05/04/22 06:04: WBC 10.7, RBC 4.49 L, Hgb 13.9 L, Hct 44.4, MCV 98.9 H, MCH 31.0, MCHC 31.4 L, RDW 14.5, Plt Count 214, MPV 8.5, Neut % (Auto) 74.1, Lymph % (Auto) 12.6, [place] % (Auto) 6.6, Eos % (Auto) 5.8, Baso % (Auto) 0.9, Neut # (Auto) 7.9 H, Lymph # (Auto) 1.3, [place] # (Auto) 0.7, Eos # (Auto) 0.6 H, Baso # (Auto) 0.1 05/04/22 06:04: Sodium 137, Potassium 4.0, Chloride 93 L, Carbon Dioxide 39 H, Anion Gap 9.0, BUN 11, Creatinine 0.80, Estimated Creat Clear 99, Estimated GFR 94, Est GFR ( Amer) 114, Glucose 223 H, Calcium 7.6 L, Magnesium 1.8, Total Bilirubin 0.6, AST 14 L, ALT 6 L, Alkaline Phosphatase 94, Total Protein 6.0 L, Albumin 2.8 L, Globulin 3.2, Albumin/Globulin Ratio 0.9 L 05/04/22 06:28: POC Glucose 197 H 05/04/22 08:19: POC Glucose 157 H I & O for Labs for Last 24 Hours: Intake & Output 05/01/22 05/02/22 05/03/22 1
[2022-05-04 12:26] LABS: POC Glucose,Bedside 138 (70-110)
[2022-05-04 17:05] LABS: POC Glucose,Bedside 194 (70-110)
--- NOTE | 2022-05-04 18:31 | PC.NURSE ---
Patient weaned from 3LNC to 2LNC baseline. VS stable. [place] given for pain and breathing treatments given prn for shortness of breath. Lungs sound diminished. Bumex given for diuresis -1090ml balance. No other changes noted.
[2022-05-04 20:26] LABS: POC Glucose,Bedside 198 (70-110)
[2022-05-05] VITALS: BP 118/50; PULSE 80; PULSE 88; RESP 20; TEMP 36.7; O2SAT 90
[2022-05-05 04:00] VITALS: BP 113/47; PULSE 70; PULSE 75; RESP 18; TEMP 36.4; O2SAT 95
[2022-05-05 04:56] VITALS: BMI 36.6
[2022-05-05 05:29] LABS: POC Glucose,Bedside 263 (70-110)
[2022-05-05 06:25] LABS: Basophils # 0.1 K/mm3 (0-0.2); Basophils % 0.8 % (0.1-2.0); Eosinophils % 0.1 % (0.1-12.0); Hematocrit 48.5 % (42.0-52.0); Hemoglobin 15.2 g/dL (14.1-18.0); Lymphocytes % 8.2 % (10-50); Mean Corpuscular HGB Conc 31.4 g/dL (31.8-35.4); Mean Corpuscular Hemoglobin 31.3 pg (27.0-31.2); Mean Corpuscular Volume 99.8 fl (80-94); Mean Platelet Volume 8.9 fl (7.4-10.4); Monocytes # 0.6 K/mm3 (0.1-1.0); Monocytes % 4.6 % (1.7-9.3); Neutrophils # 10.4 K/mm3 (1.8-7.8); Neutrophils % 86.3 % (37.0-80.0); Platelet Count 226 K/mm3 (142-424); Red Blood Count 4.86 M/mm3 (4.60-6.20); Red Cell Distribution Width 14.1 % (11.5-17.5)
[2022-05-05 06:28] VITALS: PULSE 73; PULSE 77; O2SAT 93
[2022-05-05 06:28] LABS: MANUAL DIFFERENTIAL MANUAL DIFFERENTIAL (MANUAL DIFF)
[2022-05-05 06:29] LABS: Chloride 90 mmol/L (98-107); Potassium 4.5 mmoL/L (3.5-5.1); Sodium 134 mmol/L (136-145)
[2022-05-05 06:32] LABS: Anion Gap 12.5 mEq/L (5-15); Blood Urea Nitrogen 21 mg/dl (9-20); Carbon Dioxide 36 mmol/L (22.0-30.0); Creatinine Clearance Estimated 97 mL/min (50-200); Estimated Glomerular Filt Rate 94 ml/min (>60); GFR (African American) 114 ML/MIN (>60); Glucose 315 mg/dl (74-100)
[2022-05-05 07:12] LABS: Lymphocytes % 4 % (10-50); Monocytes % 4 % (2-9); Neutrophils % 92 % (42-76); Platelet Estimate Normal; RBC Morphology Normal; Total Cells Counted 100
--- NOTE | 2022-05-05 07:14 | EXP.DC.SUM ---
General Admission date:: 05/02/22 Discharge date: 05/05/22 HPI HPI HPI: Mr. Robbins is a 77-year-old male with history of COPD on chronic oxygen (2 L), type 2 diabetes on daily insulin, daily anticoagulation (unknown as to why), and chronic pain.? He presented to the ER via private car with his niece because of complaint of shortness of breath, weakness, orthopnea.? He has chronic shortness of breath but it is gotten worse over the past 4 to 6 weeks per his report.? Over the past 2 days he has been able to sleep due to dyspnea at night.? Increased swelling in his legs over the past 1 to 2 weeks.? His niece has noticed some weeping in his legs (especially the left leg) and development of blisters.? He denies any fevers, cough is dry and productive.? Denies any confusion, chest pain, nausea or vomiting. He reports having been told that he has a history of congestive heart failure but has never seen cardiology and does not know the last time he had an echo.? He is a former smoker, but no tobacco use in years.? Continues to dip.? Lives at home by himself as his is in a penitentiary.? Is cared for by family who check on him couple times a week. On arrival to the ER he was hypoxic on room air.? Placed back on 2 L with improvement, required 3 however to get to mid 90s for saturations.? Has increased work of breathing, respiratory rate in the mid 20s.? Pleasant on interview.? History obtained from patient and niece at bedside. Hospital Course Hospital Course Hospital Course: Pro 77-year-old gentleman with history of COPD who was admitted for worsening fatigue, edema, acute CHF exacerbation.? He has responded well to diuresis. Initiated on antibiotics and steroids for COPD exacerbation with right lower lobe pneumonia. Given improvement in breathing, response to diuresis, clinical stability, meeting criteria for [facility] to [facility]iary. Needs skilled care for weakness and therapy. Also needs wound care for ruptured blister on left anterior keating. Problems during hospitalization addressed as follows: Acute diastolic congestive heart failure Volume overload - Cardiology consulted, appreciate their recommendations.? Patient was diuresed aggressively with Bumex 2 mg twice daily. Has been negative at least a liter daily since admission. Plan to continue with 2 mg twice daily Bumex for at least the next week. Recommend CBC/CMP in a week to monitor kidney function and electrolytes. At that time if determined to be euvolemic, may decrease Bumex to once a day. Continue Xarelto. Continue metoprolol 50 mg twice a daily and Aldactone 25 mg daily and Jardiance daily. Potassium remained stable during admission. Would recommend considering Entresto 24-26 twice daily when blood pressure will allow.?Questionable Hx of A-fib earlier this year.: recommend considering 2-week event monitor as outpatient to evaluate A. fib burden HLD -LDL at goal less than 55.? Continue Lipitor 40 mg daily Diabetes mellitus type 2 -Continued on Soliqua during admission. Recommend continuing at dose per med rec below. Added Jardiance daily or cardiovascular benefit as well as diabetes control. COPD exacerbation Right lower lobe pneumonia - Consulted pulmonology, appreciate their recommendations.? Chest x-ray 05/04 showed persistent right lower lobe infiltrate. Initiated on Augmentin 3 times a day for 5 days and oral steroids. Initiated patient on Advair for daily maintenance inhaler. He was declining this during admission, but counseled extensively on the need for this medication daily as a preventative and prophylactic treatment. - Continue supplemental oxygen with 2 L, goal saturation greater 92%.? Melissa prn Will need follow-up within the next 2 weeks with pulmonology and cardiology. Exam Data for Last 24 hours Vital signs and Labs for Last 24 Hours: Temp Pulse Resp BP Pulse Ox 97.6 F 77 18 113/47 L 93 L 05/05/22 04:00 05/05/22 06:28 05/05/22 04:
[2022-05-05 08:00] VITALS: BP 110/58; PULSE 70; PULSE 71; RESP 16; TEMP 36.5; O2SAT 93
[2022-05-05 08:32] LABS: Coronavirus 19, PCR Not Detected (NotDetected); Influenza A, PCR Not Detected (NotDetected); Influenza B, PCR Not Detected (NotDetected)
--- NOTE | 2022-05-05 08:54 | PC.NURSE ---
Pt has D/C to go to [facility], but case management stated he cannot leave until around noon.
--- NOTE | 2022-05-05 09:04 | DIET.NUTRFU ---
Patient plans to go to rehab today at [facility] where he receive help with meals. He also is reviewing staying there LT, his lives there. His home nutritional regimen was not meeting needs, meals provided will be beneficial for his overall health. No further dietary needs at this time.
--- NOTE | 2022-05-05 09:53 | EXP.PULM.PN ---
Subjective *Date: 05/05/22 *Time: 10:52 Interval history: No acute respiratory vents overnight. Continues to have cough and productive phlegm. Continues to needing oxygen therapy. Pulmonology Exam Inpatient Vital signs and Labs for Last 24 Hours: Temp Pulse Resp BP Pulse Ox 97.7 F 71 16 110/58 L 93 L 05/05/22 08:00 05/05/22 08:00 05/05/22 08:00 05/05/22 08:00 05/05/22 08:00 Laboratory Results - last 24 hr 05/04/22 11:43: POC Glucose 138 H 05/04/22 16:27: POC Glucose 194 H 05/04/22 20:15: POC Glucose 198 H 05/05/22 04:56: POC Glucose 263 H 05/05/22 06:02: WBC 12.0 H, RBC 4.86, Hgb 15.2, Hct 48.5, MCV 99.8 H, MCH 31.3 H, MCHC 31.4 L, RDW 14.1, Plt Count 226, MPV 8.9, Neut % (Auto) 86.3 H, Lymph % (Auto) 8.2 L, [place] % (Auto) 4.6, Eos % (Auto) 0.1, Baso % (Auto) 0.8, Neut # (Auto) 10.4 H, Lymph # (Auto) 1.0, [place] # (Auto) 0.6, Eos # (Auto) 0.0, Baso # (Auto) 0.1, Total Counted 100, Neutrophils % (Manual) 92 H, Lymphocytes % (Manual) 4 L, Monocytes % (Manual) 4, Platelet Estimate Normal, RBC Morphology Normal 05/05/22 06:02: Sodium 134 L, Potassium 4.5, Chloride 90 L, Carbon Dioxide 36 H, Anion Gap 12.5, BUN 21 H D, Creatinine 0.80, Estimated Creat Clear 97, Estimated GFR 94, Est GFR ( Amer) 114, Glucose 315 H D, Calcium 8.0 L 05/05/22 08:25: SARS-CoV-2 (PCR) Not detected, Influenza A Untype (PCR) Not detected, Influenza Type B (PCR) Not detected I & O for Labs for Last 24 Hours: Intake & Output 05/02/22 05/03/22 05/04/22 05/05/22 23:59 23:59 23:59 23:59 Intake Total 240 / 360 600 / 600 960 / 960 360 / 360 Output Total 1650 / 1650 1925 / 2325 3100 / 3100 950 / 950 Balance -1410 / -1290 -1325 / -1725 -2140 / -2140 -590 / -590 Weight 254 lb 5 oz 248 lb 14.43 oz 244 lb 12.8 oz 241 lb 9.6 oz Microbiology Reports for the Last 24 Hours: Microbiology 05/02/22 13:05 Blood Blood Culture - Preliminary NO GROWTH AFTER 48 HOURS 05/02/22 13:05 Blood Blood Culture - Preliminary NO GROWTH AFTER 48 HOURS Head: Present normocephalic and atraumatic ENT: Present normal exam and normal oropharynx Neck: Present normal inspection and full ROM Respiratory: Present respiratory distress, crackles, distant breath sounds, diminished air movement and able to speak in complete sentences; Absent accessory muscle use Cardiac: Present S1/S2, Tachycardia and radial pulses present GI: Present soft and distention; Absent tenderness or guarding Skin: Present intact and rash; Absent cyanosis or jaundice Neuro: Present alert, awake and oriented x 3 Extremities: Present normal inspection and edema; Absent clubbing or cyanosis Psychiatric: Present normal affect and cooperative Assessment and Plan *Assessment and plan (1) COPD exacerbation: Status: Acute Category: Medical Code(s): J44.1 - Chronic obstructive pulmonary disease with (acute) exacerbation (2) Pneumonia: Status: Acute Qualifiers: Laterality: right Lung location: lower lobe of lung Pneumonia type: due to unspecified organism Qualified Code(s): J18.9 - Pneumonia, unspecified organism Category: Medical Code(s): J18.9 - Pneumonia, unspecified organism Plan #Right lower lobe pneumonia: #COPD exacerbation: Mr. Robbins is a 77-year-old male carries a diagnosis of COPD, chronic hypoxic respiratory failure on 2 L oxygen therapy, diastolic heart failure, diabetes presents hospital worsening respiratory distress along with worsening lower extremity swelling has been diuresing since admission with improvement in his respiratory status Pulmonary was called to further evaluate the possible pulmonary etiology of the patient's current ongoing symptoms and also establish care with pulmonary. Greater than 57-dges-pcry smoking, last more greater than 15 years ago. Home medication review only showing albuterol as needed with no long-acting inhalers. No recent prior PFTs available for revie
[2022-05-05 10:11] VITALS: PULSE 71; PULSE 73
--- NOTE | 2022-05-05 10:21 | PC.NURSE ---
pt had 1 unmeasured void. Melanie Zuniga SRNA
--- NOTE | 2022-05-05 11:12 | PC.NURSE ---
Called report to debbie at [facility].
[2022-05-05 12:00] VITALS: PULSE 70
[2022-05-05 12:11] LABS: POC Glucose,Bedside 355 (70-110)
[2022-05-05 19:45] LABS: POC Glucose,Bedside 290 (70-110)
--- NOTE | 2022-05-08 13:06 | CARE MANAGER ---
Contacted [facility] related to patient's hospital discharge. They state he is doing well and has gotten to see his . They deny questions or concerns. GILBERTO Montgomery
== END 2022-05-05 13:12 ==
LOC: ER 16:02 → 2ND 16:32
PROVIDERS: Nurse Practitioner; Admitting Provider Internal Medicine Adolescent Medicine; Emergency Provider Emergency Medicine; PCP Emergency Medicine; Visit Provider Internal Medicine Adolescent Medicine
DX: I50.33 Acute on chronic diastolic (congestive) heart failure (principal); J96.11 Chronic respiratory failure with hypoxia; E78.5 Hyperlipidemia, unspecified; E11.9 Type 2 diabetes mellitus without complications; I11.0 Hypertensive heart disease with heart failure; J44.1 Chronic obstructive pulmonary disease with (acute) exacerbation; J18.9 Pneumonia, unspecified organism; G89.29 Other chronic pain; Z79.4 Long term (current) use of insulin; Z79.01 Long term (current) use of anticoagulants; Z79.899 Other long term (current) drug therapy; Z99.81 Dependence on supplemental oxygen; R06.02 Shortness of breath; I65.23 Occlusion and stenosis of bilateral carotid arteries; Z20.822 Contact with and (suspected) exposure to COVID-19
CPT/HCPCS: G0378; 36415; 71045; 80048; 80053; 80061; 82803; 82962; 83605; 83735; 83880; 84484; 85007; 85025; 87040; 93005; 93306; 93880; 93970; 94640; 94760; 97110; 97116; 97162; 97166; 97530; 97535; 99285; C9803; U0003; U0005

== ENCOUNTER 2022-06-20 13:05 | Emergency (ER) | payer MEDICARE, SELFPAY ==
[2022-06-20] VITALS (13 sets, daily range): BP systolic 85–125; BP diastolic 40–72; PULSE 65–83; RESP 13–20; TEMP 36.5; O2SAT 94–99; BMI 39.1
--- NOTE | 2022-06-20 13:05 | ECG_ITS ---
APPROVED REPORT Exam: Resting ECG HR:94 bpm ECG Measurements Heart Rate 94 AXES MT 160 P 44 QRSd 83 QRS 119 QT 392 T 68 QTc 443 Conclusion SINUS RHYTHM WITH FREQUENT ECTOPIC PREMATURE COMPLEXES POSSIBLE RIGHT VENTRICULAR HYPERTROPHY [SOME/ALL OF: PROMINENT R IN V1, LATE TRANSITION, RAD, ROSI, SSS] NONSPECIFIC ST & T-WAVE ABNORMALITY ABNORMAL ECG UNCONFIRMED REPORT Electronically signed by : Markus Bravo MD 06/22/2022 20:16:03
--- NOTE | 2022-06-20 13:19 | HMH.EDGENADL ---
Discharge Plan Disposition Patient Disposition: Home, Self-Care Condition: Good Prescriptions Prescriptions: No Action pantoprazole 40 mg Tablet,Delayed Release (Dr/Ec) 40 mg PO DAILY metoprolol tartrate 50 mg Tablet 50 mg PO BID aspirin 81 mg Tablet 81 mg PO DAILY alfuzosin 10 mg Tablet Extended Release 24 Hr 10 mg PO DAILY Rx Instructions: administer after the same meal each day Xarelto 20 mg Tablet 20 mg PO DAILY Rx Instructions: must administer with evening meal glipizide 5 mg Tablet Extended Release 24hr 5 mg PO DAILY paroxetine HCl 20 mg Tablet 20 mg PO DAILY Soliqua 100/33 100 unit-33 mcg/mL Insulin Pen 40 unit SQ DAILY albuterol sulfate 90 mcg/actuation HFA aerosol inhaler 2 puff INHALATION QID PRN (Reason: Shortness Of Breath) Label Comments: inhale 2 puffs as needed every 4 hours atorvastatin 40 mg Tablet 40 mg PO HS 30 Days Qty: 30 0RF fluticasone propion-salmeterol [Advair Diskus] 250-50 mcg/dose Blister With Device 1 ea inhalation BID 30 Days Qty: 60 0RF ipratropium-albuterol 0.5 mg-3 mg(2.5 mg base)/3 mL Solution For Nebulization 3 ml inhalation Q6H PRN (Reason: shortness of breath or wheezing) 30 Days Qty: 180 0RF prednisone 20 mg Tablet 40 mg PO DAILY 4 Days Qty: 8 0RF spironolactone 25 mg Tablet 25 mg PO DAILY 30 Days Qty: 30 0RF amoxicillin-pot clavulanate 500-125 mg Tablet 1 tab PO TID 4 Days Qty: 12 0RF Jardiance 10 mg Tablet 10 mg PO DAILY 30 Days Qty: 30 0RF hydrocodone-acetaminophen 7.5-325 mg Tablet 1 tab PO TID PRN (Reason: Pain) 5 Days Qty: 15 0RF gabapentin 300 mg capsule 300 mg PO TID 5 Days Qty: 15 0RF bumetanide 2 mg tablet 2 mg PO BID Qty: 60 0RF Activity Restrictions/Add. Instructions Additional Instructions/Restrictions: Follow-up with primary care provider, call to make appointment. Return emergency department if short of breath or low pulse oximetry, worsening chest pain. Clinical Impressions Clinical Impression: Chronic respiratory failure with hypoxia, Congestive heart failure Instructions Patient Instructions: DI for Heart Failure Discharge ED Provider: Edi Up General Adult HPI General Chief complaint: PAIN Stated complaint: pain in epigatric area when swallowing Time Seen by Provider: 06/20/22 14:05 History of Present Illness HPI narrative: History obtained from patient and his niece. Patient's niece says that the home health nurse saw him today and noted that his blood pressure was low, she does not know how low, his oxygen saturation was low, and he was complaining of some chest pain, so he was advised to come to the emergency department. He currently is not having any chest pain. He says that he has had pain for 1 week whenever he swallows liquids. Solids do not bother him and his saliva does not bother him, but when he drinks liquids he will get a pain in his lower sternal area. He does not feel any more short of breath than normal. He is on oxygen 2 to 3 L nasal cannula at home. Denies any recent cough. He has chronic swelling which is unchanged. Patient also says that he has chronic back pain. He is on Lortab. He last took 1 at 4 AM and is requesting 1 now for his chronic pain. Related Data Home Medications Medication Instructions Recorded Confirmed albuterol sulfate 90 mcg/actuation 2 puff inhalation QID PRN 05/02/22 05/02/22 aerosol inhaler Shortness Of Breath alfuzosin 10 mg tablet,extended 10 mg PO DAILY urinary retention 05/02/22 05/02/22 release 24 hr aspirin 81 mg tablet 81 mg PO DAILY heart 05/02/22 05/02/22 glipizide 5 mg tablet, extended 5 mg PO DAILY Diabetes 05/02/22 05/02/22 release 24 hr insulin glargine 100 40 unit SQ DAILY Diabetes 05/02/22 05/02/22 unit-lixisenatide 33 mcg/mL subcutaneous pen (Soliqua 100/33) metoprolol tartrate 50 mg tablet 50 mg PO BID Hypertension 05/02/22
--- NOTE | 2022-06-20 13:24 | XR_ITS ---
FINAL REPORT CLINICAL HISTORY: pain in epigastric area when swallowing COMPARISON: 05/04/2022 FINDINGS: A single portable view of the chest was obtained. There is cardiomegaly with mild pulmonary vascular congestion. The mediastinum is within normal limits. There are bibasilar pulmonary opacities, atelectasis or pneumonia. The bony thorax is intact. IMPRESSION: Cardiomegaly with mild pulmonary vascular congestion. Bibasilar atelectasis or pneumonia. Reviewed, Interpreted and Dictated by Rm Jeffries III, MD Transcribed by Madiha Michael Authenticated and [facility]
[2022-06-20 13:32] LABS: Chloride 93 mmol/L (98-107); Potassium 3.8 mmoL/L (3.5-5.1); Sodium 139 mmol/L (136-145)
[2022-06-20 13:35] LABS: Anion Gap 12.8 mEq/L (5-15); Blood Urea Nitrogen 10 mg/dl (9-20); Calcium 8.3 mg/dl (8.4-10.2); Carbon Dioxide 37 mmol/L (22.0-30.0); Creatinine Clearance Estimated 101 mL/min (50-200); Estimated Glomerular Filt Rate 94 ml/min (>60); GFR (African American) 114 ML/MIN (>60); Glucose 210 mg/dl (74-100)
[2022-06-20 13:41] LABS: Basophils # 0.1 K/mm3 (0-0.2); Basophils % 0.8 % (0.1-2.0); Eosinophils # 0.3 K/mm3 (0.0-0.4); Eosinophils % 3.8 % (0.1-12.0); Lymphocytes % 13.2 % (10-50); Mean Corpuscular HGB Conc 31.8 g/dL (31.8-35.4); Mean Corpuscular Hemoglobin 31.2 pg (27.0-31.2); Mean Corpuscular Volume 97.9 fl (80-94); Monocytes # 0.4 K/mm3 (0.1-1.0); Monocytes % 5.8 % (1.7-9.3); Neutrophils # 5.8 K/mm3 (1.8-7.8); Neutrophils % 76.5 % (37.0-80.0); Platelet Count 203 K/mm3 (142-424); Red Blood Count 4.81 M/mm3 (4.60-6.20); Red Cell Distribution Width 15.1 % (11.5-17.5); White Blood Count 7.6 K/mm3 (4.8-10.8)
[2022-06-20 13:48] LABS: Troponin I < 0.01 ng/ml (0.00-0.034)
--- NOTE | 2022-06-20 14:59 | PC.NURSE ---
pt sitting up in recliner, pt states he was very uncomfortable in the bed. Family at BS
[2022-06-20 15:31] LABS: NT Pro Brain Natriuretic Pep. 2720 pg/mL (0-450)
--- NOTE | 2022-06-20 16:26 | PC.NURSE ---
SUPPER TRAY ORDERED FOR PT, PT HAS URINAL AT BS. FAMILY AT BS
[2022-06-20 16:52] LABS: Troponin I < 0.01 ng/ml (0.00-0.034)
== END 2022-06-20 18:02 | disposition home or self-care (01) ==
PROVIDERS: Emergency Provider Emergency Medicine; PCP Emergency Medicine
DX: J96.11 Chronic respiratory failure with hypoxia (principal); R07.9 Chest pain, unspecified; R10.13 Epigastric pain; I11.0 Hypertensive heart disease with heart failure; I50.9 Heart failure, unspecified; I45.10 Unspecified right bundle-branch block; K21.9 Gastro-esophageal reflux disease without esophagitis; E78.5 Hyperlipidemia, unspecified; E11.9 Type 2 diabetes mellitus without complications; M54.9 Dorsalgia, unspecified; G89.29 Other chronic pain; J44.1 Chronic obstructive pulmonary disease with (acute) exacerbation; Z79.51 Long term (current) use of inhaled steroids; Z79.52 Long term (current) use of systemic steroids; Z88.2 Allergy status to sulfonamides; Z87.891 Personal history of nicotine dependence
CPT/HCPCS: 71045; 80048; 83880; 84484; 85025; 93005; 96374; 99284

== ENCOUNTER 2022-10-29 10:28 | Inpatient (IN) | payer MEDICARE, OTHER, SELFPAY ==
[2022-10-29] VITALS (52 sets, daily range): BP systolic 65–168; BP diastolic 42–143; PULSE 45–154; RESP 13–32; TEMP 36.4–37.1; O2SAT 83–100; BMI 34.0; BMI 38.5
--- NOTE | 2022-10-29 10:28 | ECG_ITS ---
APPROVED REPORT Exam: Resting ECG HR:147 bpm ECG Measurements Heart Rate 147 AXES QRSd 92 QRS 110 QT 338 T 90 QTc 422 Conclusion ATRIAL FIBRILLATION WITH RAPID VENTRICULAR RESPONSE INCOMPLETE RIGHT BUNDLE BRANCH BLOCK [90+ ms QRS DURATION, TERMINAL R IN V1/V2, 40+ ms S IN I/aVL/V4/V5/V6] POSSIBLE RIGHT VENTRICULAR HYPERTROPHY [SOME/ALL OF: PROMINENT R IN V1, LATE TRANSITION, RAD, ROSI, SSS] MODERATE ST DEPRESSION [0.05+ mV ST DEPRESSION] ABNORMAL ECG UNCONFIRMED REPORT Electronically signed by : Markus Bravo MD 10/29/2022 15:43:14
--- NOTE | 2022-10-29 10:40 | PC.NURSE ---
called respiratory to place pt on bipap
[2022-10-29 10:41] LABS: ABG HCO3 42.5 mmhg (22.0-26.0); ABG Oxygen Saturation 83 % (90-100)
[2022-10-29 10:42] LABS: ABG PH 7.55 mmol/L (7.35-7.45); Allen's Test Patient Unable; Oxygen 10LPM %; Source Right Radial
[2022-10-29 10:43] LABS: ABG PCO2 50.1 mmhg (35.0-45.0); ABG PO2 47.2 mmhg (80-100)
--- NOTE | 2022-10-29 10:54 | XR_ITS ---
PROCEDURE INFORMATION: Exam: XR Chest Exam date and time: 10/29/2022 11:15 AM Age: 77 years old Clinical indication: Dyspnea and shortness of breath; Additional info: Hypoxia TECHNIQUE: Imaging protocol: Radiologic exam of the chest. Views: 1 view. Total images: 1 COMPARISON: CR XR CHEST PORTABLE 06/20/2022 1:44 PM FINDINGS: Lungs: Interstitial prominence noted throughout both lungs. Pleural spaces: Bilateral pleural effusions. Heart/Mediastinum: Heart demonstrates moderate diffuse enlargement. Bones/joints: Unremarkable. IMPRESSION: 1. Moderate cardiomegaly. 2. Interstitial prominence noted throughout both lungs. Findings are most likely related to pulmonary vascular congestion. Underlying infiltrative changes and atelectasis can not be excluded. 3. Bilateral pleural effusions.
[2022-10-29 11:01] LABS: Microscopic, Urine URINE MICROSCOPIC (MICROSCOPIC)
[2022-10-29 11:09] LABS: Chloride 80 mmol/L (98-107); Sodium 134 mmol/L (136-145)
[2022-10-29 11:10] LABS: Basophils # 0.1 K/mm3 (0-0.2); Basophils % 0.5 % (0.1-2.0); Eosinophils % 0.1 % (0.1-12.0); Hematocrit 42.7 % (42.0-52.0); Hemoglobin 13.1 g/dL (14.1-18.0); Lymphocytes # 0.8 K/mm3 (0.7-4.5); Lymphocytes % 5.6 % (10-50); Mean Corpuscular HGB Conc 30.6 g/dL (31.8-35.4); Mean Corpuscular Hemoglobin 29.8 pg (27.0-31.2); Mean Corpuscular Volume 97.1 fl (80-94); Mean Platelet Volume 9.2 fl (7.4-10.4); Monocytes # 0.7 K/mm3 (0.1-1.0); Monocytes % 4.9 % (1.7-9.3); Neutrophils # 11.9 K/mm3 (1.8-7.8); Neutrophils % 88.9 % (37.0-80.0); Platelet Count 234 K/mm3 (142-424); Red Cell Distribution Width 15.2 % (11.5-17.5); White Blood Count 13.4 K/mm3 (4.8-10.8)
[2022-10-29 11:12] LABS: Alanine Aminotransferase 19 U/L (12-78); Albumin Level 3.4 g/dl (3.5-5.0); Albumin/Globulin Ratio 0.9 (1.1-1.8); Alkaline Phosphatase 92 U/L (38-126); Aspartate Amino Transferase 23 U/L (17-59); Bilirubin,Total 2.1 mg/dl (0.2-1.3); Blood Urea Nitrogen 20 mg/dl (9-20); Creatinine Clearance Estimated 84 mL/min (50-200); Estimated Glomerular Filt Rate 65 ml/min (>60); GFR (African American) 79 ML/MIN (>60); Globulin 3.8 g/dL (1.3-3.2); Total Protein,Serum 7.2 g/dl (6.3-8.2)
[2022-10-29 11:13] LABS: Potassium 2.2 mmoL/L (3.5-5.1)
[2022-10-29 11:13] LABS: MANUAL DIFFERENTIAL MANUAL DIFFERENTIAL (MANUAL DIFF)
[2022-10-29 11:17] LABS: Appearance,Urine CLEAR (Clear); Blood, Urine TRACE-I (Negative); Color,Urine YELLOW (Yellow); Glucose,Urine (UA) 3+ (Negative); Ketones,Urine 1+ (Negative); Leukocyte Esterase,Urine Negative (Negative); Nitrate,Urine Negative (Negative); Protein,Urine 2+ (Negative); Specific Gravity, Urine 1.015 (1.005-1.030); Urobilinogen,Urine 0.2 EU/dl (0.2)
[2022-10-29 11:20] LABS: C-Reactive Protein 64.4 mg/L (0-4)
[2022-10-29 11:24] LABS: NT Pro Brain Natriuretic Pep. 5990 pg/mL (0-450)
[2022-10-29 11:37] LABS: Bilirubin,Urine Negative (Negative)
[2022-10-29 11:37] LABS: Anion Gap 13.2 mEq/L (5-15); Carbon Dioxide 43 mmol/L (22.0-30.0)
[2022-10-29 11:38] LABS: Squamous Epithelial Cell,Urine Occasional #/hpf (0-5); WBC,Urine Occasional #/hpf (0-3)
[2022-10-29 11:40] LABS: Lymphocytes % 9 % (10-50); Monocytes % 3 % (2-9); Neutrophils % 88 % (42-76); Total Cells Counted 100
[2022-10-29 11:41] LABS: Platelet Estimate Normal; RBC Morphology Normal
[2022-10-29 12:41] LABS: Calcium 7.7 mg/dl (8.4-10.2); Glucose 340 mg/dl (74-100)
[2022-10-29 13:29] LABS: Coronavirus 19, PCR Not Detected (NotDetected); Influenza A, PCR Not Detected (NotDetected); Influenza B, PCR Not Detected (NotDetected)
--- NOTE | 2022-10-29 13:43 | HMH.EDGENADL ---
Discharge Plan Disposition Patient Disposition: Admitted As Inpatient Condition: Fair Prescriptions Prescriptions: No Action pantoprazole 40 mg Tablet,Delayed Release (Dr/Ec) 40 mg PO DAILY metoprolol tartrate 50 mg Tablet 50 mg PO BID aspirin 81 mg Tablet 81 mg PO DAILY alfuzosin 10 mg Tablet Extended Release 24 Hr 10 mg PO DAILY Rx Instructions: administer after the same meal each day Xarelto 20 mg Tablet 20 mg PO DAILY Rx Instructions: must administer with evening meal glipizide 5 mg Tablet Extended Release 24hr 5 mg PO DAILY paroxetine HCl 20 mg Tablet 20 mg PO DAILY Soliqua 100/33 100 unit-33 mcg/mL Insulin Pen 40 unit SQ DAILY albuterol sulfate 90 mcg/actuation HFA aerosol inhaler 2 puff INHALATION QID PRN (Reason: Shortness Of Breath) Label Comments: inhale 2 puffs as needed every 4 hours atorvastatin 40 mg Tablet 40 mg PO HS 30 Days Qty: 30 0RF fluticasone propion-salmeterol [Advair Diskus] 250-50 mcg/dose Blister With Device 1 ea inhalation BID 30 Days Qty: 60 0RF ipratropium-albuterol 0.5 mg-3 mg(2.5 mg base)/3 mL Solution For Nebulization 3 ml inhalation Q6H PRN (Reason: shortness of breath or wheezing) 30 Days Qty: 180 0RF prednisone 20 mg Tablet 40 mg PO DAILY 4 Days Qty: 8 0RF spironolactone 25 mg Tablet 25 mg PO DAILY 30 Days Qty: 30 0RF amoxicillin-pot clavulanate 500-125 mg Tablet 1 tab PO TID 4 Days Qty: 12 0RF Jardiance 10 mg Tablet 10 mg PO DAILY 30 Days Qty: 30 0RF hydrocodone-acetaminophen 7.5-325 mg Tablet 1 tab PO TID PRN (Reason: Pain) 5 Days Qty: 15 0RF gabapentin 300 mg capsule 300 mg PO TID 5 Days Qty: 15 0RF bumetanide 2 mg tablet 2 mg PO BID Qty: 60 0RF Referrals Follow up/Referrals: Travis Knapp MD [Primary Care Provider] - See instructions Clinical Impressions Clinical Impression: Acute and chronic respiratory failure, CHF exacerbation Discharge ED Provider: Blayne Eason General Adult HPI General Chief complaint: Shortness of Breath/Dyspnea Stated complaint: SOA Time Seen by Provider: 10/29/22 13:43 Mode of Arrival: Ambulatory Source of Information: Patient and EMS Limitations: No Limitations Description of Symptoms (Recalled from ER Triage Doc. by RN): pt comes in with shortness of air ongoing for 1 week. pt lives at independ[facility] living at [facility]. pt does wear 4L NC. History of Present Illness HPI narrative: Patient is a 77-year-old male currently on hospice for congestive heart failure who presents with concern for shortness of breath. Reported that its been worsening over the last week. He currently lives in independent living. He normally wears 4 L nasal cannula all the time. EMS reports that he was in the 60s upon their arrival. They gave him DuoNebs in route but it does not seem to be helping him. He says that his legs are more swollen than normal. He endorses significant orthopnea. Denies any fever or chills. Denies any sputum production. Related Data Home Medications Medication Instructions Recorded Confirmed albuterol sulfate 90 mcg/actuation 2 puff inhalation QID PRN 05/02/22 05/02/22 aerosol inhaler Shortness Of Breath alfuzosin 10 mg tablet,extended 10 mg PO DAILY urinary retention 05/02/22 05/02/22 release 24 hr aspirin 81 mg tablet 81 mg PO DAILY heart 05/02/22 05/02/22 glipizide 5 mg tablet, extended 5 mg PO DAILY Diabetes 05/02/22 05/02/22 release 24 hr insulin glargine 100 40 unit SQ DAILY Diabetes 05/02/22 05/02/22 unit-lixisenatide 33 mcg/mL subcutaneous pen (Soliqua 100/33) metoprolol tartrate 50 mg tablet 50 mg PO BID Hypertension 05/02/22 05/02/22 pantoprazole 40 mg tablet,delayed 40 mg PO DAILY acid reflux 05/02/22 05/02/22 release paroxetine HCl 20 mg tablet 20 mg PO DAILY Depression/anxiety 05/02/22 05/02/22 rivaroxaban 20 mg tablet (Xarelto) 20 mg PO DAILY coronary artery
--- NOTE | 2022-10-29 13:47 | EXP.HP ---
History of Present Illness *Admission Date: 10/29/22 *Reason for visit:: dyspnea, pulmonary edema *History of present illness: Patient is a 77-year-old male with history of heart failure with preserved ejection fraction, COPD, chronic hypoxemic respiratory failure on 3 to 4 L, currently on hospice for congestive heart failure. He presented to the emergency room today due to worsening shortness of breath over the past week and some increased confusion at his apartment. He resides in an apartment at [facility] in their independent living wing. Hospice currently helps to set out his medication, but family is unsure if he has taken his meds appropriately the past few days. EMS reports that he was in the 60s upon their arrival.? They reported giving him DuoNebs but saw no benefit during transport. He reports his leg swelling has been increased over normal. Has significant orthopnea, chest tightness, and fatigue. Denies any fever, increased cough, chills, nausea or vomiting. Daughter and niece at bedside and able to supplement history. They report that he has had gradual increase in oxygen requirement over the past 6 months from 2 to 4 L. Has had at least 2 other hospitalizations in the past 6 months for CHF exacerbation and COPD exacerbation. On initial work-up in the ER, found to have significant pulmonary edema on chest imaging. Started on diuretics and BiPAP. Medicine consulted for admission. After arriving to the floor, patient has had at least 850 cc of urine output. Blood pressure decreased shortly before transport to the floor with systolics in the 80s and 90s. Patient has remained alert and oriented however. Oxygen saturation 100% on BiPAP FiO2 80%. Additionally patient found to be in A-fib with RVR after initiation of treatment downstairs in the ER. Unclear if patient took his meds this morning. States he was able to get down 1 pill but not able to take anything else. Currently denies any chest pain actively. [facility] Disclaimer: The information contained in this section may have been updated after the patient was seen, as this information can be updated by other users. Medical History CHF (congestive heart failure) COPD (chronic obstructive pulmonary disease) COPD exacerbation Diabetes GERD (gastroesophageal reflux disease) Hyperlipidemia Hypertension Pneumonia Family History No significant family history Social History Smoking Status: Former smoker alcohol intake: never substance use type: denies use current occupational status: retired Travel in the last 8 weeks: None household members: none lives independently: Yes marital status: diet: diabetic physical activity: none Review of Systems Review of Systems Review of systems (narrative): 14 point review of systems performed, pertinent positives and negatives as per [facility] Meds Home Medications and Allergies Home Medications Medication Instructions Recorded Confirmed Type albuterol sulfate 90 mcg/actuation 2 puff inhalation QID PRN 05/02/22 05/02/22 History aerosol inhaler Shortness Of Breath alfuzosin 10 mg tablet,extended 10 mg PO DAILY urinary retention 05/02/22 05/02/22 History release 24 hr aspirin 81 mg tablet 81 mg PO DAILY heart 05/02/22 05/02/22 History glipizide 5 mg tablet, extended 5 mg PO DAILY Diabetes 05/02/22 05/02/22 History release 24 hr insulin glargine 100 40 unit SQ DAILY Diabetes 05/02/22 05/02/22 History unit-lixisenatide 33 mcg/mL subcutaneous pen (Soliqua 100/33) metoprolol tartrate 50 mg tablet 50 mg PO BID Hypertension 05/02/22 05/02/22 History pantoprazole 40 mg tablet,delayed 40 mg PO DAILY acid reflux 05/02/22 05/02/22 History release paroxetine HCl 20 mg tablet 20 mg PO DAILY Depression/anxiety 05/02/22 05/02/22 Hist
--- NOTE | 2022-10-29 13:57 | PC.NURSE ---
875 ml emptied from burkett catheter
--- NOTE | 2022-10-29 14:23 | PC.NURSE ---
report called to Eileen Lyn RN
--- NOTE | 2022-10-29 16:37 | PC.NURSE ---
1440 upon arrival to the ER to transport pt, bp was in the process of being taken by machine. bp was noted to be 75/51 with a heart rate of 132. cuff was repositioned with pressure then noted to be 86/65. pressure again cycled and noted to be 81/52. Dr Bean was called and notified of pt hr afib in the 120-130's with bp of 70's and 80's systolic. per Dr bean ok to continue transport at this time. arrival on unit at 1458. pt transported on venti mask at 50%. upon arrival to unit 2nd iv started.
[2022-10-29 17:01] LABS: Magnesium 1.8 mg/dl (1.6-2.3)
--- NOTE | 2022-10-29 17:15 | PC.NURSE ---
unable to address meds at this time. spoke with pt family, states they will look for a list of meds/bring in pill bottles. family member naomi states that hospice nurse is the one who fixes his medication box for him so pt is unsure of what meds he is actually on at this time.
[2022-10-29 17:46] LABS: POC Glucose,Bedside 393 (70-110)
--- NOTE | 2022-10-29 18:06 | PC.NURSE ---
RT at bedside, on venti mask temporarily r/t drink of water.
--- NOTE | 2022-10-29 18:36 | PC.NURSE ---
pt medications prepared by hospice, family asked to bring in meds if able. family stated meds are not in bottles but in daily/weekly med spout liner helper.
--- NOTE | 2022-10-29 18:37 | PC.NURSE ---
expression difficulty r/t bipap and dry mouth during admission. pt provided swabs and sips and chips
--- NOTE | 2022-10-29 18:54 | PC.NURSE ---
upon arrival to unit pt appeared very impulsive with requests. pt stated he needed to go to the restroom and was insistent about going to the actual bathroom. explained to pt that bsc would be offered r/t pt being on nrb at the present time and unable to go the distance to the bathroom. pt eventually agreed to use the bsc. pt stated that he needed to have a bm but was unable to go. states that he usually goes daily to the bathroom and had gone yesterday or today ( he was unsure). pt requested that staff digitally remove stool from his rectum. advised pt that staff was unable to do so without an order from the MD. Dr Bean at [facility] and informed of pt statements and request. md order for pt to have an enema at this time. enema administed with results of loose stool with chunks immediately.
--- NOTE | 2022-10-29 19:05 | PC.NURSE ---
late entry: 1500 Dr Bean notified that pt hr is still in the 120-130. new order metoprolol 5mg iv x 1 1510 pt states he needs an enema. new order enema x 1 1540 during admission pt code status was discussed with pt. John Espinoza RN present for conversation as well r/t pt being unable to sign r/t dexterity issues. pt states that he wants to be a DNR. discussed with pt daughter as well who states that pt is to be a DNR. [address] Bean that pt fsbs 393 but does not have sliding scale insulin ordered. new order ssi miss [address] Bean face to face of blood present in urine r/t catheter becoming unsecured from stat lock on leg. catheter re-secured in stat lock.
[2022-10-29 19:35] LABS: Hemoglobin A1C 8.1 % (4.0-6.0)
[2022-10-29 20:41] LABS: POC Glucose,Bedside 354 (70-110)
[2022-10-29 20:51] LABS: Blood Urea Nitrogen 19 mg/dl (9-20); Calcium 7.2 mg/dl (8.4-10.2); Chloride 83 mmol/L (98-107); Creatinine Clearance Estimated 96 mL/min (50-200); Estimated Glomerular Filt Rate 82 ml/min (>60); GFR (African American) 99 ML/MIN (>60); Glucose 359 mg/dl (74-100); Sodium 132 mmol/L (136-145)
[2022-10-29 21:00] LABS: Anion Gap 7.5 mEq/L (5-15); Carbon Dioxide 44 mmol/L (22.0-30.0)
[2022-10-29 21:02] LABS: Potassium 2.5 mmoL/L (3.5-5.1)
--- NOTE | 2022-10-29 22:26 | PC.NURSE ---
Pt lethargic, unable to take a drink of water to take po medication. VS: BP 130/73, HR 78, RR 18, O2 97% on bipap 65%. Cristian Marquez made aware of pt status and VS. States it is ok to hold tonights po metoprolol and gabapentin. Medication had been pulled from omni and opened, wasted with Ian Soto RN.
[2022-10-30] VITALS (24 sets, daily range): BP systolic 88–161; BP diastolic 56–123; PULSE 76–120; RESP 17–24; TEMP 36.3–37.1; O2SAT 90–96; BMI 38.5
[2022-10-30 00:24] LABS: Magnesium 1.9 mg/dl (1.6-2.3)
[2022-10-30 00:28] LABS: Potassium 2.6 mmoL/L (3.5-5.1)
--- NOTE | 2022-10-30 02:11 | PC.NURSE ---
Pt is refusing PO potassium at this time but is agreeable to IV potassium administration.
[2022-10-30 06:21] LABS: POC Glucose,Bedside 260 (70-110)
[2022-10-30 06:43] LABS: Chloride 83 mmol/L (98-107); Sodium 133 mmol/L (136-145)
[2022-10-30 06:44] LABS: Potassium 3.3 mmoL/L (3.5-5.1)
[2022-10-30 06:46] LABS: Alanine Aminotransferase 11 U/L (12-78); Alkaline Phosphatase 66 U/L (38-126); Aspartate Amino Transferase 19 U/L (17-59); Bilirubin,Total 1.1 mg/dl (0.2-1.3); Blood Urea Nitrogen 21 mg/dl (9-20); Creatinine Clearance Estimated 97 mL/min (50-200); Estimated Glomerular Filt Rate 82 ml/min (>60); GFR (African American) 99 ML/MIN (>60)
[2022-10-30 06:47] LABS: Albumin Level 2.9 g/dl (3.5-5.0); Albumin/Globulin Ratio 0.9 (1.1-1.8); Calcium 7.3 mg/dl (8.4-10.2); Globulin 3.3 g/dL (1.3-3.2); Glucose 238 mg/dl (74-100); Magnesium 1.8 mg/dl (1.6-2.3); Total Protein,Serum 6.2 g/dl (6.3-8.2)
--- NOTE | 2022-10-30 06:54 | PC.NURSE ---
Pt has c/o generalized pain 3x t/o shift requiring PRN pain medication. Pt has been q2 turned and oral care provided. Pt tolerating bipap 65% FIo2 well with sats in upper 90s. Pt has been NSR with [facility] PACs on tele. Daughter is at bedside. Call light within reach.
[2022-10-30 06:57] LABS: Anion Gap 8.3 mEq/L (5-15); Carbon Dioxide 45 mmol/L (22.0-30.0)
--- NOTE | 2022-10-30 07:00 | XR_ITS ---
FINAL REPORT CLINICAL HISTORY: dyspnea COMPARISON: 10/29/2022 FINDINGS: Note these exam was performed on 10/30/2022 and submitted for interpretation on 11/09/2022. A single portable view of the chest was obtained. There is cardiomegaly. There is pulmonary vascular congestion. The mediastinum is within normal limits. There are persistent bilateral pulmonary opacities, favor edema over pneumonia. The bony thorax is intact. IMPRESSION: Cardiomegaly with pulmonary vascular congestion. Persistent bilateral pulmonary opacities, favor edema over pneumonia. Reviewed, Interpreted and Dictated by Rm Jeffries III, MD Transcribed by Madiha Michael Authenticated and [facility] [place]
[2022-10-30 07:01] LABS: Basophils % 0.1 % (0.1-2.0); Hematocrit 40.1 % (42.0-52.0); Hemoglobin 12.2 g/dL (14.1-18.0); Lymphocytes # 0.6 K/mm3 (0.7-4.5); Lymphocytes % 4.7 % (10-50); Mean Corpuscular HGB Conc 30.5 g/dL (31.8-35.4); Mean Corpuscular Volume 98.2 fl (80-94); Mean Platelet Volume 8.7 fl (7.4-10.4); Monocytes # 0.8 K/mm3 (0.1-1.0); Monocytes % 6.1 % (1.7-9.3); Neutrophils # 11.7 K/mm3 (1.8-7.8); Neutrophils % 89.1 % (37.0-80.0); Platelet Count 188 K/mm3 (142-424); Red Blood Count 4.08 M/mm3 (4.60-6.20); Red Cell Distribution Width 15.1 % (11.5-17.5); White Blood Count 13.2 K/mm3 (4.8-10.8)
[2022-10-30 07:08] LABS: MANUAL DIFFERENTIAL MANUAL DIFFERENTIAL (MANUAL DIFF)
[2022-10-30 07:46] LABS: Lymphocytes % 3 % (10-50); Monocytes % 3 % (2-9); Neutrophils % 93 % (42-76); Platelet Estimate Normal; RBC Morphology Normal; Total Cells Counted 100
--- NOTE | 2022-10-30 08:55 | HMH.PHAINT1 ---
Pharmacy Intervention Comments: Reconciled patient's home medications using list from hospice care.
[2022-10-30 09:16] LABS: POC Glucose,Bedside 270 (70-110)
--- NOTE | 2022-10-30 09:59 | HMH.OTEV ---
OT Inpatient Evaluation Rehab OT IP Evaluation Start: 10/29/22 16:51 Freq: ONCE Status: Active Protocol: Document 10/30/22 09:50 RMARSHALL (Rec: 10/30/22 09:59 RMARSHALL [id number]) Rehab OT IP Assessment Subjective History Pt oriented x 3 on arrival. Pt agreeable to engage in therapy evaluation. Pt currently on vapotherm. Pt admitted on 10/29/22 due to hypokalemia, respiratory failure, and hypoxia. Prior to being in the hospital, pt lived in an apartment at [facility]. Pt claims he was independent with all ADLs such as dressing, feeding, and bathing. He was able to complete IADLs as well such as cooking small meals, cleaning , and laundry. Pt wore oxygen at all times. Pt used a motorized wheelchair in his apartment and in community but was able to transfer himself independently to and from chair. Nursing did check on him daily. Pt has a past medical history of: CHF (congestive heart failure) COPD (chronic obstructive pulmonary disease) COPD exacerbation Diabetes GERD (gastroesophageal reflux disease) Hyperlipidemia Hypertension Pneumonia Subjective I will need help up. Objective Patient Orientation Person,Place,Birthday Upper Extremity Gross ROM Min Limitation <25% Shoulder ROM Limitations Muscle Weakness Elbow ROM Limitations Muscle Weakness Wrist Limitations of Range of Motion Muscle Weakness Bed Mobility bed mobility-scooting,bed mobility - supine/sit,bed mobility - rolling Assist Level Moderate x 1 (50% assist) Rehab OT IP prob,goals,plan Problems Date of Evaluation: 10/30/22 OT IP Problems Bed Mobility,Transfers,Balance ,Self care,Safety Rehab Potential
--- NOTE | 2022-10-30 11:57 | EXP.ACUTE.PN ---
Subjective *Date: 10/30/22 *Time: 11:57 Interval history: Patient alert and oriented this morning. Transitioning from BiPAP to Vapotherm. Lungs sounding better on exam. Has had good urine output. Patient -1200 cc since midnight. -800 since admission. Complaining of burning with his Lewis catheter, will discontinue this morning. No nausea or vomiting. Tolerating p.o. intake well on Vapotherm Medical Exam Vital signs and Labs for Last 24 Hours: Vital Signs Temp Pulse Pulse Resp BP BP BP 10/30/22 11:15 98.0 F 10/30/22 08:00 10/30/22 08:42 10/30/22 07:50 10/30/22 08:01 97.4 F L 10/30/22 06:13 76 10/30/22 06:13 84 10/30/22 00:00 80 10/30/22 04:00 80 10/29/22 20:00 80 10/30/22 06:00 86 19 110/72 10/30/22 04:00 87 19 106/68 L 10/30/22 04:00 10/30/22 04:00 97.9 F 10/30/22 02:09 10/30/22 02:00 78 18 89/56 L 10/30/22 00:00 10/30/22 00:00 83 17 115/66 10/29/22 23:58 97.6 F 10/29/22 23:30 79 10/29/22 23:30 80 10/29/22 22:00 78 17 130/73 10/29/22 21:42 10/29/22 20:00 10/29/22 20:00 80 17 95/59 L 10/29/22 20:00 98.7 F 10/29/22 15:00 132 H 10/29/22 18:23 10/29/22 18:21 83 10/29/22 18:21 84 10/29/22 18:21 10/29/22 18:00 85 26 H 124/51 L 10/29/22 17:30 83 24 106/54 L 10/29/22 17:00 92 H 24 99/58 L 10/29/22 16:30 93 H 25 H 136/92 H 10/29/22 16:00 88 26 H 121/91 H 10/29/22 15:53 96 H 26 H 88/61 L 10/29/22 15:15 128 H 26 H 116/69 10/29/22 15:04 127 H 26 H 126/73 10/29/22 16:00 80 10/29/22 15:15 98.2 F 132 H 22 91/72 L 10/29/22 14:58 98.4 F 132 H 24 91/72 L 10/29/22 14:43 132 H 86/65 L 10/29/22 14:41 131 H 75/51 L 10/29/22 14:36 128 H 94/42 L 10/29/22 14:30 133 H 14 117/56 L 10/29/22 14:10 142 H 116/75 10/29/22 13:51 45 L 13 137/75 10/29/22 13:45 133 H 120/73 10/29/22 13:41 141 H 98/62 L 10/29/22 13:31 99 H 116/83 10/29/22 13:46 10/29/22 13:26 56 L 168/143 H 10/29/22 13:01 151 H 13 121/59 L 10/29/22 12:50 148 H 23 115/75 10/29/22 12:47 98 H 22 105/88 L 10/29/22 12:43 139 H 130/78 10/29/22 12:36 146 H 94/45 L 10/29/22 12:31 147 H 68/51 L 10/29/22 12:26 125 H 120/80 10/29/22 12:21 135 H 109/69 L 10/29/22 12:16 126 H 135/65 10/29/22 12:11 138 H 127/89 10/29/22 12:06 152 H 143/75 H 10/29/22 12:01 114 H 65/48 L Pulse Ox FiO2 10/30/22 11:15 10/30/22 08:00 70 10/30/22 08:42 91 L 70 10/30/22 07:50 91 L 70 10/30/22 08:01 10/30/22 06:13 10/30/22 06:13 10/30/22 00:00 10/30/22 04:00 10/29/22 20:00 10/30/22 06:00 96 65 10/30/22 04:00 95 65 10/30/22 04:00 96 65 10/30/22 04:00 10/30/22 02:09 65 10/30/22 02:00 94 L 65 10/30/22 00:00 96 65 10/30/22 00:00 96 65 10/29/22 23:58 10/29/22 23:30 10/29/22 23:30 10/29/22 22:00 97 65 10/29/22 21:42 65 10/29/22 20:00 94 L 70 10/29/22 20:00 94 L 70 10/29/22 20:00 10/29/22 15:00 100 50 10/29/22 18:23 97 70 10/29/22 18:21 10/29/22 18:21 10/29/22 18:21 70 10/29/22 18:00 83 L 50 10/29/22 17:30 98 80 10/29/22 17:00 100 80 10/29/22 16:30 100 80 10/29/22 16:00 89 L 100 10/29/22 15:53 91 L 100 10/29/22 15:15 98 10/29/22 15:04 100 50 10/29/22 16:00 10/29/22 15:15 98 10/29/22 14:58 10/29/22 14:43 98 10/29/22 14:41 98 10/29/22 14:36 97 10/29/22 14:30 98 10/29/22 14:10 97 10/29/22 13:51 98 10/29/22 13:45 99 10/29/22 13:41 99 10/29/22 13:31 98 10/29/22 13:46 80 10/29/22 13:26 98 10/29/22 13:01 98 10/29/22 12:50 98
--- NOTE | 2022-10-30 11:59 | HMH.PTEV ---
Physical Therapy Evaluation Rehab PT IP Evaluation Start: 10/29/22 16:51 Freq: ONCE Status: Active Protocol: Document 10/30/22 11:41 CHUCKY (Rec: 10/30/22 11:59 CHUCKY [id number]) Subjective/History History History Pt is a 77 year olf male with a history of heart failure with preserved ejection fraction, COPD, chronic hypoxemic respiratory failure on 3 to 4 L, currently on hospice for congestive heart failure that presented to the ED due to worsening SOB and increased confusion at his apartment. Pt resides at [facility] in independent living. Pt was found to have significant pulmonary edema on chest imaging. Pt was placed on BiPAP FiO2 80% and maintained 100% oxygen saturation. Pt was found to be in A-fib with RVR . Subjective Subjective Pt presents supine in bed with daughter at side, appears lethargic during conversation but agreeable to PT evaluation . Pt denies reports of pain at rest, reports BLE pain when donning non-skid socks. Pt performed supine to sit on EOB with mod A x2, once sitting on EOB pt was able to perform sit to stand transfer with min A x2. Pt required min A x2 to maintain static stance due to lateral sway and increased dyspnea. Pt able to maintain static standing for ~3 minutes prior to requiring a seated rest break. Rehab PT IP Eval Objective Appearance Patient Behavior Cooperative,Asleep Patient Orientation Person,Place,Name,Situation Difficulty following instructions none Speech Pattern Soft-Spoken,Monotone,Mumbled, Poor Articulation Ambulation Patient Able to Ambulate No Balance Ability to Arise Able, uses arms to help Sitting Balance Steady, safe Standing Balance
[2022-10-30 12:10] LABS: POC Glucose,Bedside 277 (70-110)
--- NOTE | 2022-10-30 15:50 | PC.NURSE ---
Pt is on vapotherm 35L 60%. O2 sats in low 90s with periodic desats. Pt has been tachycardic this shift. aware. Medication administered per sep. Pt has ambulated to chair and BSC with assistance. Tolerated fair. He is currently resting in bed. Has c/o generalized discomfort this shift. Call light within reach.
--- NOTE | 2022-10-30 15:58 | CARE MANAGER ---
Addendum entered by Ester Childress RN 11/06/22 13:19: Patient discharging to SNF bed @ [facility] today, Covid swab ordered. Addendum entered by Ester Childress RN 11/06/22 10:58: Per Dr. Bailey, patient is medically ready for discharge today. I have spoken with Roderick @ [facility] this morning and they may need to do an in-person visit prior to discharge. We are waiting to hear back from Roderick. CM will continue to follow for discharge planning needs. Addendum entered by Ester Childress RN 11/01/22 15:24: Patient revoked Hospice on 10/30, and now has traditional Medicare. Plan is to discharge to SNF @ [facility] once medically stable. Original Note: Spoke with patient at bedside, along with daughter. Patient is from [facility], and will likely need to be discharged to a SNF bed for rehab. Christine at notified of plan. He will revoke Hospice if SNF is needed. CM will continue to follow for discharge planning needs.
[2022-10-30 16:02] LABS: POC Glucose,Bedside 226 (70-110)
[2022-10-30 19:50] LABS: Blood Urea Nitrogen 28 mg/dl (9-20); Calcium 7.7 mg/dl (8.4-10.2); Chloride 82 mmol/L (98-107); Creatinine Clearance Estimated 97 mL/min (50-200); Estimated Glomerular Filt Rate 73 ml/min (>60); GFR (African American) 88 ML/MIN (>60); Glucose 205 mg/dl (74-100); Potassium 3.1 mmoL/L (3.5-5.1); Sodium 133 mmol/L (136-145)
[2022-10-30 20:23] LABS: POC Glucose,Bedside 194 (70-110)
--- NOTE | 2022-10-30 20:23 | PC.NURSE ---
got pt up to chair per pt's request with 3 assists
[2022-10-30 20:34] LABS: Anion Gap 13.1 mEq/L (5-15); Carbon Dioxide 41 mmol/L (22.0-30.0)
[2022-10-31] VITALS (18 sets, daily range): BP systolic 87–164; BP diastolic 44–122; PULSE 77–130; RESP 17–27; TEMP 36.6–37.1; O2SAT 89–100; BMI 38.5; BMI 38.6
--- NOTE | 2022-10-31 01:47 | EXP.PN ---
Subjective *Date: 10/31/22 *Time: 09:00 Interval history: No acute events overnight. He was placed on BIPAP overnight because of worsening dyspnea. Dyspnea is resolving. Denies chest pain. Exam Data for Last 24 hours Vital signs and Labs for Last 24 Hours: Temp Pulse Resp BP Pulse Ox FiO2 98.3 F 90 17 161/123 H 92 L 60 10/31/22 00:00 10/30/22 23:04 10/30/22 20:00 10/30/22 20:00 10/30/22 20:00 10/30/22 18:47 Laboratory Results - last 24 hr 10/30/22 05:57: WBC 13.2 H, RBC 4.08 L, Hgb 12.2 L, Hct 40.1 L, MCV 98.2 H, MCH 30.0, MCHC 30.5 L, RDW 15.1, Plt Count 188, MPV 8.7, Neut % (Auto) 89.1 H, Lymph % (Auto) 4.7 L, [place] % (Auto) 6.1, Eos % (Auto) 0.0 L, Baso % (Auto) 0.1, Neut # (Auto) 11.7 H, Lymph # (Auto) 0.6 L, [place] # (Auto) 0.8, Eos # (Auto) 0.0, Baso # (Auto) 0.0, Total Counted 100, Neutrophils % (Manual) 93 H, Lymphocytes % (Manual) 3 L, Monocytes % (Manual) 3, Blast Cells % 1.0, Platelet Estimate Normal, RBC Morphology Normal 10/30/22 05:57: Sodium 133 L, Potassium 3.3 L D, Chloride 83 L, Carbon Dioxide 45 H*, Anion Gap 8.3, BUN 21 H, Creatinine 0.90, Estimated Creat Clear 97, Estimated GFR 82, Est GFR ( Amer) 99, Glucose 238 H D, Calcium 7.3 L, Magnesium 1.8, Total Bilirubin 1.1, AST 19, ALT 11 L D, Alkaline Phosphatase 66, Total Protein 6.2 L, Albumin 2.9 L D, Globulin 3.3 H, Albumin/Globulin Ratio 0.9 L 10/30/22 06:14: POC Glucose 260 H 10/30/22 08:52: POC Glucose 270 H 10/30/22 11:58: POC Glucose 277 H 10/30/22 15:55: POC Glucose 226 H 10/30/22 19:25: Sodium 133 L, Potassium 3.1 L, Chloride 82 L, Carbon Dioxide 41 H*, Anion Gap 13.1, BUN 28 H D, Creatinine 1.00, Estimated Creat Clear 97, Estimated GFR 73, Est GFR ( Amer) 88, Glucose 205 H, Calcium 7.7 L 10/30/22 20:12: POC Glucose 194 H I & O for Last 24 hours: Intake & Output 10/28/22 10/29/22 10/30/22 10/31/22 23:59 23:59 23:59 23:59 Intake Total 570 / 570 990 / 990 Output Total 300 / 300 3600 / 3600 Balance 270 / 270 -2610 / -2610 Weight 108.437 kg 108.8 kg Microbiology Reports for the Last 24 Hours: Microbiology 10/29/22 10:45 Blood - Other Blood Culture - Preliminary Constitutional Constitutional: no acute distress *Routine HEENT Exam Head: Present normocephalic Eye: Present EOMI and PERRL ENT: Present mucous membranes moist *Routine Neck Exam Neck: Present supple; Absent lymphadenopathy *Routine Respiratory Exam Respiratory: Present accessory muscle use and crackles (bibasilar) *Routine Cardiovascular Exam Cardiovascular: Present RRR *Routine Abdominal Exam Abdominal: Present soft and normoactive bowel sounds; Absent tenderness *Routine Extremities Exam Extremities: Present edema (1 to 2+ pitting edema to the knees bilaterally); Absent cyanosis or clubbing *Routine Skin Exam Skin: Present warm; Absent rash *Routine Neurological Exam Neurological: Present alert and oriented X3 Assessment and Plan *Assessment and plan (1) Acute on chronic heart failure with preserved ejection fraction (HFpEF): Status: Acute Category: Medical Code(s): I50.33 - Acute on chronic diastolic (congestive) heart failure (2) Acute on chronic respiratory failure with hypoxemia: Status: Acute Category: Medical Code(s): J96.21 - Acute and chronic respiratory failure with hypoxia (3) Pulmonary edema: Status: Acute Category: Medical Code(s): J81.1 - Chronic pulmonary edema (4) Class 2 obesity: Status: Chronic Category: Medical Code(s): E66.9 - Obesity, unspecified (5) COPD (chronic obstructive pulmonary disease): Status: Chronic Qualifiers: COPD type: unspecified COPD Qualified Code(s): J44.9 - Chronic obstructive pulmonary disease, unspecified Category: Medical Code(s): J44.9 - Chronic obstructive pulmonary disease, unspecified (6) Hyperlipidemia: Status: Chronic Qualifiers: Hyperlipidemia type:
--- NOTE | 2022-10-31 02:50 | PC.NURSE ---
pt c/o SOA and asked for neb treatment, notified RT Naomi but no prn nebs ordered, notified HEAVEN De Los Santos and instructed RT to place on bipap, pt now on bipap
[2022-10-31 06:05] LABS: Basophils # 0.1 K/mm3 (0-0.2); Basophils % 0.5 % (0.1-2.0); Eosinophils # 0.1 K/mm3 (0.0-0.4); Eosinophils % 0.6 % (0.1-12.0); Hematocrit 41.7 % (42.0-52.0); Hemoglobin 12.4 g/dL (14.1-18.0); Lymphocytes # 1.4 K/mm3 (0.7-4.5); Lymphocytes % 10.6 % (10-50); Mean Corpuscular HGB Conc 29.7 g/dL (31.8-35.4); Mean Corpuscular Hemoglobin 29.1 pg (27.0-31.2); Mean Corpuscular Volume 98.1 fl (80-94); Mean Platelet Volume 8.9 fl (7.4-10.4); Monocytes # 0.9 K/mm3 (0.1-1.0); Monocytes % 7.2 % (1.7-9.3); Neutrophils # 10.6 K/mm3 (1.8-7.8); Neutrophils % 81.1 % (37.0-80.0); Platelet Count 200 K/mm3 (142-424); Red Blood Count 4.25 M/mm3 (4.60-6.20); Red Cell Distribution Width 15.1 % (11.5-17.5)
[2022-10-31 06:19] LABS: Chloride 84 mmol/L (98-107); Potassium 4.2 mmoL/L (3.5-5.1); Sodium 132 mmol/L (136-145)
[2022-10-31 06:21] LABS: Blood Urea Nitrogen 32 mg/dl (9-20); Creatinine Clearance Estimated 97 mL/min (50-200); Estimated Glomerular Filt Rate 110 ml/min (>60); GFR (African American) 133 ML/MIN (>60)
[2022-10-31 06:22] LABS: Alanine Aminotransferase 10 U/L (12-78); Albumin Level 2.7 g/dl (3.5-5.0); Albumin/Globulin Ratio 0.9 (1.1-1.8); Alkaline Phosphatase 45 U/L (38-126); Aspartate Amino Transferase 28 U/L (17-59); Bilirubin,Total 0.8 mg/dl (0.2-1.3); Calcium 7.5 mg/dl (8.4-10.2); Globulin 3.1 g/dL (1.3-3.2); Glucose 101 mg/dl (74-100); Magnesium 2.1 mg/dl (1.6-2.3); Total Protein,Serum 5.8 g/dl (6.3-8.2)
[2022-10-31 06:30] LABS: Anion Gap 8.2 mEq/L (5-15); Carbon Dioxide 44 mmol/L (22.0-30.0)
[2022-10-31 06:32] LABS: NT Pro Brain Natriuretic Pep. 5970 pg/mL (0-450)
[2022-10-31 06:34] LABS: POC Glucose,Bedside 112 (70-110)
--- NOTE | 2022-10-31 06:34 | PC.NURSE ---
sat pt up on side of bed, pt requested bipap be taken off and vapotherm put back on to be able to eat and drink for breakfast, notified Caty JONES and will come place pt back on vapotherm for breakfast
--- NOTE | 2022-10-31 09:40 | PC.NURSE ---
Gone to laborer for procedure.
--- NOTE | 2022-10-31 10:48 | PC.NURSE ---
Patient brother wating in his room.
[2022-10-31 11:32] LABS: POC Glucose,Bedside 179 (70-110)
--- NOTE | 2022-10-31 21:06 | PC.NURSE ---
Pt. refused to have his fsbg checked tonight.
[2022-10-31 23:34] LABS: POC Glucose,Bedside 278 (70-110)
[2022-11-01] VITALS (17 sets, daily range): BP systolic 95–127; BP diastolic 55–80; PULSE 72–136; RESP 18–24; TEMP 36.5–36.8; O2SAT 90–100; BMI 38.4
--- NOTE | 2022-11-01 05:05 | PC.NURSE ---
Pt. allowed for a finger stick later in the night but refused coverage. He was helped to the chair and eventually went to the bed. No changes noted.
[2022-11-01 05:36] LABS: POC Glucose,Bedside 161 (70-110)
--- NOTE | 2022-11-01 06:34 | PC.NURSE ---
Pt. found to have two pain pills split in half in a zip lock bag in his room. 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 He signed the pink slip and knows he will get it back when he is discharged.
--- NOTE | 2022-11-01 07:00 | XR_ITS ---
FINAL REPORT CLINICAL HISTORY: chf exacerbation COMPARISON: 10/29/2022 FINDINGS: The heart size is at the upper limits of normal. The mediastinum is normal. There is mild interstitial opacity at the lung bases which appears chronic. No acute process. There are no pleural effusions. There is no pneumothorax. There is no osseous abnormality. IMPRESSION: No acute cardiopulmonary process Reviewed, Interpreted and Dictated by Shane Miller MD Transcribed by Lenka Bond Authenticated and [facility]
[2022-11-01 08:11] LABS: Chloride 84 mmol/L (98-107)
[2022-11-01 08:12] LABS: Potassium 3.8 mmoL/L (3.5-5.1); Sodium 134 mmol/L (136-145)
[2022-11-01 08:14] LABS: Blood Urea Nitrogen 32 mg/dl (9-20); Creatinine Clearance Estimated 96 mL/min (50-200); Estimated Glomerular Filt Rate 82 ml/min (>60); GFR (African American) 99 ML/MIN (>60)
[2022-11-01 08:15] LABS: Alanine Aminotransferase 21 U/L (12-78); Albumin Level 3.1 g/dl (3.5-5.0); Albumin/Globulin Ratio 0.9 (1.1-1.8); Alkaline Phosphatase 91 U/L (38-126); Aspartate Amino Transferase 22 U/L (17-59); Bilirubin,Total 0.6 mg/dl (0.2-1.3); Calcium 7.7 mg/dl (8.4-10.2); Globulin 3.3 g/dL (1.3-3.2); Glucose 253 mg/dl (74-100); Total Protein,Serum 6.4 g/dl (6.3-8.2)
[2022-11-01 08:23] LABS: Anion Gap 11.8 mEq/L (5-15); Carbon Dioxide 42 mmol/L (22.0-30.0)
--- NOTE | 2022-11-01 08:57 | EXP.PN ---
Subjective *Date: 11/01/22 *Time: 13:56 Interval history: He's on vapotherm FIO2 60% I/o +1/2/-3.5L Creatinine went up from 0.7 to 0.9 cxr is without any acute process 1 of 2 blood cultures grew staph epidermidis He has been drinking large amount of fluids RN found out that the patient had been taking his own supply of oxycodone He feels much better overall with less dyspnea and swelling Exam Data for Last 24 hours Vital signs and Labs for Last 24 Hours: Temp Pulse Resp BP Pulse Ox FiO2 98.0 F 136 H 24 117/55 L 90 L 60 11/01/22 07:27 11/01/22 07:27 11/01/22 07:27 11/01/22 07:27 11/01/22 07:27 11/01/22 05:30 Laboratory Results - last 24 hr 10/31/22 11:18: POC Glucose 179 H 10/31/22 23:27: POC Glucose 278 H 11/01/22 05:29: POC Glucose 161 H 11/01/22 07:58: Sodium 134 L, Potassium 3.8, Chloride 84 L, Carbon Dioxide 42 H*, Anion Gap 11.8, BUN 32 H, Creatinine 0.90 D, Estimated Creat Clear 96, Estimated GFR 82, Est GFR ( Amer) 99 D, Glucose 253 H, Calcium 7.7 L, Total Bilirubin 0.6, AST 22, ALT 21 D, Alkaline Phosphatase 91, Total Protein 6.4, Albumin 3.1 L D, Globulin 3.3 H, Albumin/Globulin Ratio 0.9 L I & O for Last 24 hours: Intake & Output 10/29/22 10/30/22 10/31/22 11/01/22 23:59 23:59 23:59 23:59 Intake Total 570 / 570 990 / 1230 1320 / 1320 360 / 360 Output Total 300 / 300 3600 / 3900 3725 / 3825 800 / 800 Balance 270 / 270 -2610 / -2670 -2405 / -2505 -440 / -440 Weight 108.437 kg 108.8 kg 109 kg 108.437 kg Microbiology Reports for the Last 24 Hours: Microbiology 10/29/22 10:45 Blood - Other Blood Culture - Final Staphylococcus epidermidis 10/29/22 10:29 Urine,Catheterized Urine Culture - Final No growth. 10/29/22 10:29 Blood - Other Blood Culture - Preliminary NO GROWTH AFTER 48 HOURS Constitutional Constitutional: no acute distress *Routine HEENT Exam Head: Present normocephalic Eye: Present EOMI and PERRL ENT: Present mucous membranes moist *Routine Neck Exam Neck: Present supple; Absent lymphadenopathy *Routine Respiratory Exam Respiratory: Present accessory muscle use and crackles (bibasilar) *Routine Cardiovascular Exam Cardiovascular: Present RRR *Routine Abdominal Exam Abdominal: Present soft and normoactive bowel sounds; Absent tenderness *Routine Extremities Exam Extremities: Present edema (1 to 2+ pitting edema to the knees bilaterally); Absent cyanosis or clubbing *Routine Skin Exam Skin: Present warm; Absent rash *Routine Neurological Exam Neurological: Present alert and oriented X3 Assessment and Plan *Assessment and plan (1) Acute on chronic heart failure with preserved ejection fraction (HFpEF): Status: Acute Category: Medical Code(s): I50.33 - Acute on chronic diastolic (congestive) heart failure (2) Acute on chronic respiratory failure with hypoxemia: Status: Acute Category: Medical Code(s): J96.21 - Acute and chronic respiratory failure with hypoxia (3) Pulmonary edema: Status: Acute Category: Medical Code(s): J81.1 - Chronic pulmonary edema (4) Class 2 obesity: Status: Chronic Category: Medical Code(s): E66.9 - Obesity, unspecified (5) COPD (chronic obstructive pulmonary disease): Status: Chronic Qualifiers: COPD type: unspecified COPD Qualified Code(s): J44.9 - Chronic obstructive pulmonary disease, unspecified Category: Medical Code(s): J44.9 - Chronic obstructive pulmonary disease, unspecified (6) Hyperlipidemia: Status: Chronic Qualifiers: Hyperlipidemia type: mixed hyperlipidemia Qualified Code(s): E78.2 - Mixed hyperlipidemia Category: Medical Code(s): E78.5 - Hyperlipidemia, unspecified (7) Type 2 diabetes mellitus: Status: Chronic Qualifiers: Chronic kidney disease stage: s
[2022-11-01 12:03] LABS: POC Glucose,Bedside 229 (70-110)
--- NOTE | 2022-11-01 12:04 | DIET.NUTRFU ---
provided ordered fluid restriction of 1500ml, patient drinks alot of lemonade throughout the day. Ordered a pitcher from kitchen this morning and probably drank a pitcher worth yesterday. Nursing set it aside out of reach this morning. Provider would prefer he only had 500ml the remainder of the day. Only sent 1 6oz cup with lunch, cancelled the soup and ice cream and notified kitchen for only 1 beverage with dinner also. Na low at 134. Continues on bumex with good urine output of 3725ml 10/31/22. Patient is non complaint with diet recommendations. unwilling to be educated. Plan to discharge to rehab bed when feasible.
[2022-11-01 16:32] LABS: POC Glucose,Bedside 179 (70-110)
--- NOTE | 2022-11-01 16:42 | PC.NURSE ---
PT IS SITTING UP ON THE SOB VISITING WITH FAMILY. ALERT AND ORIENTED X4. EATING AND DRINKING WELL. TOLERATED SITTING UP IN THE CHAIR FOR SEVERAL HOURS THIS SHIFT. SWELLING NOTED TO BLE. O2 SATURATION HAS MAINTAINED 90-95% ON VAPOTHERM 35 L 60% FIO2. WILL CONTINUE TO MONITOR.
[2022-11-01 20:56] LABS: POC Glucose,Bedside 181 (70-110)
[2022-11-02] VITALS (14 sets, daily range): BP systolic 97–128; BP diastolic 70–73; PULSE 73–117; RESP 18–24; TEMP 36.2–36.6; O2SAT 91–100; BMI 38.9
[2022-11-02 05:54] LABS: Basophils # 0.1 K/mm3 (0-0.2); Basophils % 0.6 % (0.1-2.0); Eosinophils # 0.3 K/mm3 (0.0-0.4); Eosinophils % 2.4 % (0.1-12.0); Hematocrit 41.2 % (42.0-52.0); Hemoglobin 13.1 g/dL (14.1-18.0); Lymphocytes # 1.3 K/mm3 (0.7-4.5); Lymphocytes % 12.8 % (10-50); Mean Corpuscular HGB Conc 31.7 g/dL (31.8-35.4); Mean Corpuscular Hemoglobin 31.8 pg (27.0-31.2); Mean Corpuscular Volume 100.1 fl (80-94); Mean Platelet Volume 9.2 fl (7.4-10.4); Monocytes # 0.6 K/mm3 (0.1-1.0); Monocytes % 5.9 % (1.7-9.3); Neutrophils # 8.1 K/mm3 (1.8-7.8); Neutrophils % 78.3 % (37.0-80.0); Platelet Count 222 K/mm3 (142-424); Red Blood Count 4.12 M/mm3 (4.60-6.20); White Blood Count 10.3 K/mm3 (4.8-10.8)
[2022-11-02 05:59] LABS: Chloride 86 mmol/L (98-107)
[2022-11-02 06:00] LABS: Potassium 3.8 mmoL/L (3.5-5.1); Sodium 134 mmol/L (136-145)
[2022-11-02 06:02] LABS: Alanine Aminotransferase 13 U/L (12-78); Aspartate Amino Transferase 17 U/L (17-59); Blood Urea Nitrogen 33 mg/dl (9-20); Creatinine Clearance Estimated 98 mL/min (50-200); Estimated Glomerular Filt Rate 82 ml/min (>60); GFR (African American) 99 ML/MIN (>60)
[2022-11-02 06:03] LABS: Alkaline Phosphatase 70 U/L (38-126); Bilirubin,Total 0.5 mg/dl (0.2-1.3); Calcium 7.8 mg/dl (8.4-10.2); Globulin 3.1 g/dL (1.3-3.2); Glucose 165 mg/dl (74-100); Total Protein,Serum 6.1 g/dl (6.3-8.2)
[2022-11-02 06:19] LABS: Anion Gap 9.8 mEq/L (5-15); Carbon Dioxide 42 mmol/L (22.0-30.0)
--- NOTE | 2022-11-02 06:25 | PC.NURSE ---
NO ACUTE CHANGES SINCE PREVIOUS ASSESSMENT. PT HAS SLEPT VERY LITTLE THIS SHIFT. PT HAS BEEN RESTLESS THIS SHIFT. C/O SCIATIC NERVE PAIN THIS SHIFT. MEDICATED WITH PRN MEDICATION. VSS.
[2022-11-02 06:40] LABS: NT Pro Brain Natriuretic Pep. 4470 pg/mL (0-450)
[2022-11-02 06:44] LABS: POC Glucose,Bedside 181 (70-110)
--- NOTE | 2022-11-02 07:00 | XR_ITS ---
PROCEDURE INFORMATION: Exam: XR Chest Exam date and time: 11/02/2022 5:29 AM Age: 77 years old Clinical indication: Cardiovascular condition or disease; Congestive heart failure (chf); Cause unknown; Additional info: Chf exacerbation TECHNIQUE: Imaging protocol: Radiologic exam of the chest. Views: 1 view. COMPARISON: CR XR CHEST PORTABLE 11/01/2022 7:27 AM FINDINGS: Lungs: Basilar consolidation and pleural effusions bilaterally. Pleural spaces: See Lungs finding. Heart/Mediastinum: Unremarkable. No cardiomegaly. Bones/joints: Unremarkable. IMPRESSION: Basilar consolidation and pleural effusions bilaterally.
--- NOTE | 2022-11-02 09:10 | EXP.PN ---
Subjective *Date: 11/02/22 *Time: 11:07 Interval history: Spo2 is 91% on vapotherm at 25L with FIO2 40% i/o +2.7/ -2.5 ProBNP is coming down 5K -> 4K cxr this morning with basilar consolidation and pleural effusions bilaterally, to me it appears similar to cxr from 11/01. He feels better, less dyspnea. No chest pain. No cough. Exam Data for Last 24 hours Vital signs and Labs for Last 24 Hours: Temp Pulse Resp BP Pulse Ox FiO2 97.2 F L 75 24 107/70 L 100 60 11/02/22 08:14 11/02/22 05:57 11/02/22 04:00 11/02/22 04:00 11/02/22 05:57 11/02/22 05:57 Laboratory Results - last 24 hr 11/01/22 11:54: POC Glucose 229 H 11/01/22 16:25: POC Glucose 179 H 11/01/22 20:40: POC Glucose 181 H 11/02/22 05:28: NT-Pro-B Natriuret Pep 4470 H 11/02/22 05:28: Sodium 134 L, Potassium 3.8, Chloride 86 L, Carbon Dioxide 42 H*, Anion Gap 9.8, BUN 33 H, Creatinine 0.90, Estimated Creat Clear 98, Estimated GFR 82, Est GFR ( Amer) 99, Glucose 165 H D, Calcium 7.8 L, Total Bilirubin 0.5, AST 17, ALT 13 D, Alkaline Phosphatase 70, Total Protein 6.1 L, Albumin 3.0 L, Globulin 3.1, Albumin/Globulin Ratio 1.0 L 11/02/22 05:28: WBC 10.3, RBC 4.12 L, Hgb 13.1 L, Hct 41.2 L, MCV 100.1 H, MCH 31.8 H, MCHC 31.7 L, RDW 15.0, Plt Count 222, MPV 9.2, Neut % (Auto) 78.3, Lymph % (Auto) 12.8, Metcalfe % (Auto) 5.9, Eos % (Auto) 2.4, Baso % (Auto) 0.6, Neut # (Auto) 8.1 H, Lymph # (Auto) 1.3, Metcalfe # (Auto) 0.6, Eos # (Auto) 0.3, Baso # (Auto) 0.1 11/02/22 06:32: POC Glucose 181 H I & O for Last 24 hours: Intake & Output 10/30/22 10/31/22 11/01/22 11/02/22 23:59 23:59 23:59 23:59 Intake Total 990 / 1230 1320 / 1320 2715 / 2715 360 / 360 Output Total 3600 / 3900 3725 / 3825 2300 / 2700 1050 / 1050 Balance -2610 / -2670 -2405 / -2505 415 / 15 -690 / -690 Weight 108.8 kg 109 kg 108.437 kg 109.883 kg Microbiology Reports for the Last 24 Hours: Microbiology 10/29/22 10:29 Blood - Other Blood Culture - Preliminary 10/29/22 10:45 Blood - Other Blood Culture - Final Staphylococcus epidermidis 10/29/22 10:29 Urine,Catheterized Urine Culture - Final No growth. Constitutional Constitutional: no acute distress *Routine HEENT Exam Head: Present normocephalic Eye: Present EOMI and PERRL ENT: Present mucous membranes moist *Routine Neck Exam Neck: Present supple; Absent lymphadenopathy *Routine Respiratory Exam Respiratory: Present accessory muscle use and crackles (bibasilar) *Routine Cardiovascular Exam Cardiovascular: Present RRR *Routine Abdominal Exam Abdominal: Present soft and normoactive bowel sounds; Absent tenderness *Routine Extremities Exam Extremities: Present edema (1 to 2+ pitting edema to the knees bilaterally); Absent cyanosis or clubbing *Routine Skin Exam Skin: Present warm; Absent rash *Routine Neurological Exam Neurological: Present alert and oriented X3 Assessment and Plan *Assessment and plan (1) Acute on chronic heart failure with preserved ejection fraction (HFpEF): Status: Acute Category: Medical Code(s): I50.33 - Acute on chronic diastolic (congestive) heart failure (2) Acute on chronic respiratory failure with hypoxemia: Status: Acute Category: Medical Code(s): J96.21 - Acute and chronic respiratory failure with hypoxia (3) Pulmonary edema: Status: Acute Category: Medical Code(s): J81.1 - Chronic pulmonary edema (4) Class 2 obesity: Status: Chronic Category: Medical Code(s): E66.9 - Obesity, unspecified (5) COPD (chronic obstructive pulmonary disease): Status: Chronic Qualifiers: COPD type: unspecified COPD Qualified Code(s): J44.9 - Chronic obstructive pulmonary disease, unspecified Category: Medical Code(s): J44.9 - Chronic obstructive pulmonary disease, unspecified (6) Hyperlipidemia: Status: Chronic Qualifiers:
[2022-11-02 10:59] LABS: ABG Base Excess 17.3 mmol/L (-2.4-2.3); ABG HCO3 40.5 mmhg (22.0-26.0); ABG Oxygen Saturation 86 % (90-100); ABG PO2 51.6 mmhg (80-100); ABG TCO2 42.2 mmhg (23-27)
[2022-11-02 11:00] LABS: Allen's Test ACCEPTABLE; Oxygen 40% %; Source R RADIAL
[2022-11-02 11:02] LABS: ABG PCO2 53.8 mmhg (35.0-45.0)
--- NOTE | 2022-11-02 11:10 | PC.NURSE ---
[address] Bailey via phone of pt critical PCO2 53.8. no new orders. primary RN made aware as well. RT to notify dr Wiseman
--- NOTE | 2022-11-02 11:15 | PC.NURSE ---
[address] Bailey via phone of pt critical PCO2 53.8. no new orders. primary RN made aware as well.
--- NOTE | 2022-11-02 11:23 | EXP.PULM.CON ---
History of Present Illness History of present illness: Mr. Robbins is a 77-year-old male history of COPD heart failure preserved ejection fraction has been admitted to the hospital from 10/29/2022 managed for heart failure exacerbation continued needing high oxygen requirements and pulmonary was consulted for further evaluation [facility] Disclaimer: The information contained in this section may have been updated after the patient was seen, as this information can be updated by other users. Medical History (Updated 11/02/22 @ 12:53 by Ignacia Wiseman MD) CHF (congestive heart failure) COPD (chronic obstructive pulmonary disease) COPD exacerbation Diabetes GERD (gastroesophageal reflux disease) Hyperlipidemia Hypertension Pleural effusion Pneumonia Family History No significant family history Social History (Updated 10/29/22 @ 19:40 by Eileen Lyn RN) Smoking Status: Former smoker alcohol intake: never substance use type: denies use current occupational status: retired Travel in the last 8 weeks: None household members: none housing: assisted living facility lives independently: Yes marital status: number of children: 1 diet: diabetic physical activity: none Review of Systems Constitutional Constitutional: Reports anorexia, Reports body ache(s) and Reports fatigue Eyes Eyes: Denies eye discharge, Denies dry eyes, Denies irritation and Denies itchy eyes ENT Ears, Nose, Mouth, and Throat: Denies epistaxis, Denies facial pain, Denies lip swelling and Denies throat swelling *Cardiovascular Cardiovascular: Reports dyspnea, Reports dyspnea on exertion and Reports orthopnea *Respiratory Respiratory: Reports chest congestion, Reports cough, Reports dyspnea, Reports dyspnea on exertion, Reports excessive phlegm production and Reports wheezing *Gastrointestinal Gastrointestinal: Denies abdominal pain, Denies belching and Denies cramping *Musculoskeletal Musculoskeletal: Reports back pain, Reports joint swelling, Reports myalgias and Reports other (No small joint swelling or Pain) Psychiatric Psychiatric: Denies homicidal ideation and Denies suicidal ideation Endocrine Endocrine: Reports fatigue and Denies heat intolerance Hematologic/Lymphatic Hematologic/Lymphatic: Denies easy bleeding and Denies lymphadenopathy Allergic/Immunologic Allergic/Immunologic: Denies itchy eyes, Denies lip swelling, Denies throat swelling and Reports wheezing Pulmonology Exam Inpatient Vital signs and Labs for Last 24 Hours: Temp Pulse Resp BP Pulse Ox FiO2 97.2 F L 100 H 24 107/70 L 100 60 11/02/22 08:14 11/02/22 08:00 11/02/22 04:00 11/02/22 04:00 11/02/22 05:57 11/02/22 05:57 Laboratory Results - last 24 hr 11/01/22 11:54: POC Glucose 229 H 11/01/22 16:25: POC Glucose 179 H 11/01/22 20:40: POC Glucose 181 H 11/02/22 05:28: NT-Pro-B Natriuret Pep 4470 H 11/02/22 05:28: Sodium 134 L, Potassium 3.8, Chloride 86 L, Carbon Dioxide 42 H*, Anion Gap 9.8, BUN 33 H, Creatinine 0.90, Estimated Creat Clear 98, Estimated GFR 82, Est GFR ( Amer) 99, Glucose 165 H D, Calcium 7.8 L, Total Bilirubin 0.5, AST 17, ALT 13 D, Alkaline Phosphatase 70, Total Protein 6.1 L, Albumin 3.0 L, Globulin 3.1, Albumin/Globulin Ratio 1.0 L 11/02/22 05:28: WBC 10.3, RBC 4.12 L, Hgb 13.1 L, Hct 41.2 L, MCV 100.1 H, MCH 31.8 H, MCHC 31.7 L, RDW 15.0, Plt Count 222, MPV 9.2, Neut % (Auto) 78.3, Lymph % (Auto) 12.8, Pope % (Auto) 5.9, Eos % (Auto) 2.4, Baso % (Auto) 0.6, Neut # (Auto) 8.1 H, Lymph # (Auto) 1.3, Pope # (Auto) 0.6, Eos # (Auto) 0.3, Baso # (Auto) 0.1 11/02/22 06:32: POC Glucose 181 H 11/02/22 11:00: Specimen Source R radial, O2 % 40%, ABG pH 7.50 H, ABG pCO2 53.8 H, ABG pO2 51.6 L, ABG HCO3 40.5 H, ABG Total CO2 42.2 H, ABG O2 Saturation 86 L*, ABG Base Excess 17.3 H, Edmundo Test Acceptable I & O for Labs for Last 24 Hours: Intake & Output 10/30/22
[2022-11-02 12:12] LABS: POC Glucose,Bedside 197 (70-110)
--- NOTE | 2022-11-02 13:31 | CT_ITS ---
FINAL REPORT TECHNIQUE: Axial images were obtained through the chest without contrast. CLINICAL HISTORY: PNM FINDINGS: CT CHEST W/O CONTRAST There are small scattered mediastinal lymph nodes measuring up to 2.2 cm. Lymph nodes are seen throughout the mediastinum. The heart size is normal. There is dense coronary artery calcification. There is no pericardial or pleural effusion. There are moderate bilateral pleural effusions. There is bibasilar consolidation. There are mild changes of centrilobular emphysema. No suspicious infiltrate or nodule identified. Limited images of the upper abdomen demonstrate changes from cholecystectomy. IMPRESSION: Moderate pleural effusions with bibasilar consolidation. Small mediastinal lymph nodes measuring up to 2.2 cm, favor reactive. Follow-up chest CT recommended for stability. Reviewed, Interpreted and Dictated by Shane Miller MD Transcribed by Madiha Michael Authenticated and [facility]
--- NOTE | 2022-11-02 13:35 | PC.NURSE ---
radiology called stating patient refused contrast for CTA. notified dr. becerra who stated to go ahead and do the CT with out contrast.
[2022-11-02 15:26] LABS: Adenovirus,PCR Not Detected (NotDetected); Bordetella Pertussis Not Detected (NotDetected); Chlamydophila Pneumoniae, PCR Not Detected (NotDetected); Coronavirus 19, PCR Not Detected (NotDetected); Coronavirus 229E Not Detected (NotDetected); Coronavirus NL63 Not Detected (NotDetected); Coronavirus OC43 Not Detected (NotDetected); Coronovirus HKU1,PCR Not Detected (NotDetected); Human Metapneumovirus Not Detected (NotDetected); Influenza A, PCR Not Detected (NotDetected); Influenza AH1, 2009 Not Detected (NotDetected); Influenza AH1, PCR Not Detected (NotDetected); Influenza AH3,PCR Not Detected (NotDetected); Influenza B, PCR Not Detected (NotDetected); Mycoplasma Pneumoniae, PCR Not Detected (NotDetected); Parainfluenza 1, PCR Not Detected (NotDetected); Parainfluenza 2, PCR Not Detected (NotDetected); Parainfluenza 3, PCR Not Detected (NotDetected); Parainfluenza 4, PCR Not Detected (NotDetected); Respiratory Syncytial Virus Not Detected (NotDetected); Rhinovirus/Enterovirus Not Detected (NotDetected)
[2022-11-02 16:57] LABS: POC Glucose,Bedside 150 (70-110)
[2022-11-02 22:11] LABS: POC Glucose,Bedside 257 (70-110)
[2022-11-03] VITALS (18 sets, daily range): BP systolic 88–117; BP diastolic 52–72; PULSE 70–110; RESP 16–26; TEMP 36.4–36.6; O2SAT 80–97; BMI 38.1
--- NOTE | 2022-11-03 06:05 | PC.NURSE ---
no changes from previous assessment, pt wore bipap some through the night and remained up in chair, pt refused to lay in bed, vapotherm at 40L/40%; vss, pitting edema to BLE noted, no acute distress, no other issues noted at this time.
[2022-11-03 06:32] LABS: Chloride 89 mmol/L (98-107); Sodium 135 mmol/L (136-145)
[2022-11-03 06:35] LABS: Blood Urea Nitrogen 34 mg/dl (9-20); Carbon Dioxide 39 mmol/L (22.0-30.0); Creatinine Clearance Estimated 96 mL/min (50-200); Estimated Glomerular Filt Rate 94 ml/min (>60); GFR (African American) 114 ML/MIN (>60); Glucose 272 mg/dl (74-100)
--- NOTE | 2022-11-03 07:00 | XR_ITS ---
PROCEDURE INFORMATION: Exam: XR Chest Exam date and time: 11/03/2022 5:20 AM Age: 77 years old Clinical indication: Cardiovascular condition or disease; Congestive heart failure (chf); Cause unknown; Additional info: Chf exacerbation TECHNIQUE: Imaging protocol: Radiologic exam of the chest. Views: 1 view. COMPARISON: CT CHEST WO CON 11/02/2022 1:31 PM FINDINGS: Lungs: There is hyperinflation consistent with COPD. There is bibasilar atelectasis. There is no definite pulmonary edema. Pleural spaces: There are bilateral pleural effusions. Heart/Mediastinum: The heart is mildly enlarged. Bones/joints: There are degenerative changes of the spine and shoulders. IMPRESSION: 1. Cardiomegaly with bilateral pleural effusions and basilar atelectasis. 2. Hyperinflation consistent with COPD.
[2022-11-03 07:09] LABS: POC Glucose,Bedside 264 (70-110)
--- NOTE | 2022-11-03 08:19 | EXP.PN ---
Subjective *Date: 11/03/22 *Time: 10:41 Interval history: This morning he is saturating 90% on Vapotherm 40L FIO2 40% i/o +1.4L/ -2.3L yesterday he received a total of 3mg IV bumex No acute events overnight. Less dyspnea. Exam Data for Last 24 hours Vital signs and Labs for Last 24 Hours: Temp Pulse Resp BP Pulse Ox FiO2 97.6 F 74 18 105/67 L 90 L 40 11/03/22 07:48 11/03/22 07:48 11/03/22 07:48 11/03/22 07:48 11/03/22 07:48 11/03/22 07:48 Laboratory Results - last 24 hr 11/02/22 11:00: Specimen Source R radial, O2 % 40%, ABG pH 7.50 H, ABG pCO2 53.8 H, ABG pO2 51.6 L, ABG HCO3 40.5 H, ABG Total CO2 42.2 H, ABG O2 Saturation 86 L*, ABG Base Excess 17.3 H, Edmundo Test Acceptable 11/02/22 11:57: POC Glucose 197 H 11/02/22 14:45: Chlamy pneumoniae PCR Not detected, Adenovirus (PCR) Not detected, B. pertussis DNA (PCR) Not detected, Coronavirus OC43 (PCR) Not detected, Coronavirus HKU1 (PCR) Not detected, Coronavirus 229E (PCR) Not detected, SARS-CoV-2 (PCR) Not detected, Coronavirus NL63 (PCR) Not detected, Human Metapneumovir PCR Not detected, Influenza A (H1) PCR Not detected, Influ A (H1N1/09) PCR Not detected, Influenza A (H3) PCR Not detected, Influenza Type A (PCR) Not detected, Influenza Type B (PCR) Not detected, M. pneumoniae (PCR) Not detected, Parainfluenza 1 (PCR) Not detected, Parainfluenza 2 (PCR) Not detected, Parainfluenza 3 (PCR) Not detected, Parainfluenza 4 (PCR) Not detected, RSV (PCR) Not detected, Entero/Rhino (PCR) Not detected 11/02/22 16:50: POC Glucose 150 H 11/02/22 21:56: POC Glucose 257 H 11/03/22 05:45: Sodium 135 L, Potassium 4.0, Chloride 89 L, Carbon Dioxide 39 H, Anion Gap 11.0, BUN 34 H, Creatinine 0.80, Estimated Creat Clear 96, Estimated GFR 94, Est GFR ( Amer) 114, Glucose 272 H, Calcium 8.0 L 11/03/22 06:52: POC Glucose 264 H I & O for Last 24 hours: Intake & Output 10/31/22 11/01/22 11/02/22 11/03/22 23:59 23:59 23:59 23:59 Intake Total 1320 / 1320 2715 / 2715 1404 / 1404 Output Total 3725 / 3825 2300 / 2700 1350 / 1725 875 / 875 Balance -2405 / -2505 415 / 15 54 / -321 -855 / -855 Weight 109 kg 108.437 kg 109.883 kg 107.637 kg Microbiology Reports for the Last 24 Hours: Microbiology 10/29/22 10:29 Blood - Other Blood Culture - Preliminary Gram Positive Cocci Constitutional Constitutional: no acute distress *Routine HEENT Exam Head: Present normocephalic Eye: Present EOMI and PERRL ENT: Present mucous membranes moist *Routine Neck Exam Neck: Present supple; Absent lymphadenopathy *Routine Respiratory Exam Respiratory: Present accessory muscle use and crackles (bibasilar) *Routine Cardiovascular Exam Cardiovascular: Present RRR *Routine Abdominal Exam Abdominal: Present soft and normoactive bowel sounds; Absent tenderness *Routine Extremities Exam Extremities: Present edema (1 to 2+ pitting edema to the knees bilaterally); Absent cyanosis or clubbing *Routine Skin Exam Skin: Present warm; Absent rash *Routine Neurological Exam Neurological: Present alert and oriented X3 Assessment and Plan *Assessment and plan (1) Acute on chronic heart failure with preserved ejection fraction (HFpEF): Status: Acute Category: Medical Code(s): I50.33 - Acute on chronic diastolic (congestive) heart failure (2) Acute on chronic respiratory failure with hypoxemia: Status: Acute Category: Medical Code(s): J96.21 - Acute and chronic respiratory failure with hypoxia (3) Pulmonary edema: Status: Acute Category: Medical Code(s): J81.1 - Chronic pulmonary edema (4) Class 2 obesity: Status: Chronic Category: Medical Code(s): E66.9 - Obesity, unspecified (5) COPD (chronic obstructive pulmonary disease): Status: Chronic Qualifiers: COPD type: unspecified COPD Qualified Code(s): J44.9 - Chronic obstructive pulmonary disease, unspecified
--- NOTE | 2022-11-03 09:32 | EXP.PULM.PN ---
Subjective *Date: 11/03/22 *Time: 12:26 Interval history: No acute respiratory vents overnight. Patient has waxing and waning oxygen requirements. Pulmonology Exam Inpatient Vital signs and Labs for Last 24 Hours: Temp Pulse Resp BP Pulse Ox FiO2 97.6 F 74 18 105/67 L 90 L 40 11/03/22 07:48 11/03/22 07:48 11/03/22 07:48 11/03/22 07:48 11/03/22 07:48 11/03/22 07:48 Laboratory Results - last 24 hr 11/02/22 11:00: Specimen Source R radial, O2 % 40%, ABG pH 7.50 H, ABG pCO2 53.8 H, ABG pO2 51.6 L, ABG HCO3 40.5 H, ABG Total CO2 42.2 H, ABG O2 Saturation 86 L*, ABG Base Excess 17.3 H, Edmundo Test Acceptable 11/02/22 11:57: POC Glucose 197 H 11/02/22 14:45: Chlamy pneumoniae PCR Not detected, Adenovirus (PCR) Not detected, B. pertussis DNA (PCR) Not detected, Coronavirus OC43 (PCR) Not detected, Coronavirus HKU1 (PCR) Not detected, Coronavirus 229E (PCR) Not detected, SARS-CoV-2 (PCR) Not detected, Coronavirus NL63 (PCR) Not detected, Human Metapneumovir PCR Not detected, Influenza A (H1) PCR Not detected, Influ A (H1N1/09) PCR Not detected, Influenza A (H3) PCR Not detected, Influenza Type A (PCR) Not detected, Influenza Type B (PCR) Not detected, M. pneumoniae (PCR) Not detected, Parainfluenza 1 (PCR) Not detected, Parainfluenza 2 (PCR) Not detected, Parainfluenza 3 (PCR) Not detected, Parainfluenza 4 (PCR) Not detected, RSV (PCR) Not detected, Entero/Rhino (PCR) Not detected 11/02/22 16:50: POC Glucose 150 H 11/02/22 21:56: POC Glucose 257 H 11/03/22 05:45: Sodium 135 L, Potassium 4.0, Chloride 89 L, Carbon Dioxide 39 H, Anion Gap 11.0, BUN 34 H, Creatinine 0.80, Estimated Creat Clear 96, Estimated GFR 94, Est GFR ( Amer) 114, Glucose 272 H, Calcium 8.0 L 11/03/22 06:52: POC Glucose 264 H I & O for Labs for Last 24 Hours: Intake & Output 10/31/22 11/01/22 11/02/22 11/03/22 23:59 23:59 23:59 23:59 Intake Total 1320 / 1320 2715 / 2715 1404 / 1404 140 / 140 Output Total 3725 / 3825 2300 / 2700 1350 / 1725 2024 Balance -2405 / -2505 415 / 15 54 / -321 -1885 / -1885 Weight 240 lb 4.862 oz 239 lb 1 oz 242 lb 4 oz 237 lb 4.8 oz Microbiology Reports for the Last 24 Hours: Microbiology 10/29/22 10:29 Blood - Other Blood Culture - Preliminary Gram Positive Cocci Constitutional: Present severe distress Head: Present normocephalic and atraumatic ENT: Present normal exam, normal oropharynx and mucous membranes moist Neck: Present normal inspection and full ROM Respiratory: Present prolonged expiratory phase, respiratory distress, wheezes, crackles, diminished air movement and able to speak in complete sentences Cardiac: Present S1/S2, Tachycardia and radial pulses present GI: Present soft and distention; Absent tenderness or guarding Skin: Present intact and rash; Absent cyanosis or jaundice Neuro: Present alert, awake and oriented x 3 Extremities: Present normal inspection and edema; Absent clubbing or cyanosis Psychiatric: Present normal affect and cooperative Assessment and Plan *Assessment and plan (1) Acute on chronic respiratory failure with hypoxemia: Status: Acute Category: Medical Code(s): J96.21 - Acute and chronic respiratory failure with hypoxia (2) Pulmonary edema: Status: Acute Category: Medical Code(s): J81.1 - Chronic pulmonary edema (3) Pleural effusion: Status: Acute Category: Medical Code(s): J90 - Pleural effusion, not elsewhere classified Plan Mr. Robbins is a 77-year-old male history of heart failure preserved EF, history of COPD greater than [id number] smoking history of melasma greater than 15 years ago, chronic hypoxic respiratory failure with 3 to 4 L at baseline was admitted to the hospital on 10/29/2022 and has been managed for heart failure exacerbation. Patient on admission was initiated on BiPAP and initiated diuretics. He continued to receive DuoNebs for his COPD. Was eventually weaned fr
[2022-11-03 11:24] LABS: POC Glucose,Bedside 169 (70-110)
[2022-11-03 17:05] LABS: POC Glucose,Bedside 188 (70-110)
--- NOTE | 2022-11-03 17:43 | PC.NURSE ---
tech note; notified nurse of low oxygen level for 1600 vital signs. k gissell, srna
--- NOTE | 2022-11-03 19:17 | PC.NURSE ---
Patient remained on vapotherm. VS stable. Lungs sounds inspiratory wheezing in bases and diminished in upper lobes. Pain medications given for chronic pain.
[2022-11-03 20:40] LABS: POC Glucose,Bedside 278 (70-110)
[2022-11-04] VITALS (15 sets, daily range): BP systolic 99–149; BP diastolic 43–71; PULSE 52–86; RESP 16–22; TEMP 36.4–37; O2SAT 91–99; BMI 38.1
--- NOTE | 2022-11-04 05:05 | PC.NURSE ---
Patient is A&Ox4. Wore cpap some through the night. Satting high 80's-low 90's on 35%/30L vapotherm. Gave prn pain med d/t chronic pain.
[2022-11-04 05:39] LABS: POC Glucose,Bedside 266 (70-110)
[2022-11-04 07:41] LABS: Basophils # 0.1 K/mm3 (0-0.2); Basophils % 0.5 % (0.1-2.0); Eosinophils # 0.3 K/mm3 (0.0-0.4); Eosinophils % 2.7 % (0.1-12.0); Hematocrit 42.3 % (42.0-52.0); Lymphocytes # 1.7 K/mm3 (0.7-4.5); Lymphocytes % 14.9 % (10-50); Mean Corpuscular HGB Conc 30.7 g/dL (31.8-35.4); Mean Corpuscular Hemoglobin 29.7 pg (27.0-31.2); Mean Corpuscular Volume 96.9 fl (80-94); Mean Platelet Volume 9.1 fl (7.4-10.4); Monocytes # 0.6 K/mm3 (0.1-1.0); Monocytes % 5.2 % (1.7-9.3); Neutrophils # 8.6 K/mm3 (1.8-7.8); Neutrophils % 76.7 % (37.0-80.0); Platelet Count 191 K/mm3 (142-424); Red Blood Count 4.37 M/mm3 (4.60-6.20); Red Cell Distribution Width 14.9 % (11.5-17.5); White Blood Count 11.3 K/mm3 (4.8-10.8)
[2022-11-04 07:48] LABS: Chloride 91 mmol/L (98-107); Sodium 137 mmol/L (136-145)
[2022-11-04 07:49] LABS: Potassium 3.7 mmoL/L (3.5-5.1)
[2022-11-04 07:51] LABS: Blood Urea Nitrogen 40 mg/dl (9-20); Creatinine Clearance Estimated 87 mL/min (50-200); Estimated Glomerular Filt Rate 65 ml/min (>60); GFR (African American) 79 ML/MIN (>60)
[2022-11-04 07:52] LABS: Anion Gap 9.7 mEq/L (5-15); Calcium 8.1 mg/dl (8.4-10.2); Carbon Dioxide 40 mmol/L (22.0-30.0); Glucose 178 mg/dl (74-100); Magnesium 2.3 mg/dl (1.6-2.3)
--- NOTE | 2022-11-04 09:03 | EXP.PN ---
Subjective *Date: 11/04/22 *Time: 11:02 Interval history: I/O + 930/-3850mL net -2.9L Cr increased from 0.8 to 1.1 Denies chest pain and at rest he doesn't have dyspnea. He complains of nasal congestion and of being stopped up. He has been eating well. Exam Data for Last 24 hours Vital signs and Labs for Last 24 Hours: Temp Pulse Resp BP Pulse Ox FiO2 98.0 F 72 18 103/61 L 95 35 11/04/22 08:00 11/04/22 08:00 11/04/22 08:00 11/04/22 08:00 11/04/22 08:00 11/04/22 06:10 Laboratory Results - last 24 hr 11/03/22 11:17: POC Glucose 169 H 11/03/22 16:49: POC Glucose 188 H 11/03/22 20:15: POC Glucose 278 H 11/04/22 05:24: POC Glucose 266 H 11/04/22 07:18: WBC 11.3 H, RBC 4.37 L, Hgb 13.0 L, Hct 42.3, MCV 96.9 H, MCH 29.7, MCHC 30.7 L, RDW 14.9, Plt Count 191, MPV 9.1, Neut % (Auto) 76.7, Lymph % (Auto) 14.9, [place] % (Auto) 5.2, Eos % (Auto) 2.7, Baso % (Auto) 0.5, Neut # (Auto) 8.6 H, Lymph # (Auto) 1.7, [place] # (Auto) 0.6, Eos # (Auto) 0.3, Baso # (Auto) 0.1 11/04/22 07:18: Sodium 137, Potassium 3.7, Chloride 91 L, Carbon Dioxide 40 H, Anion Gap 9.7, BUN 40 H, Creatinine 1.10 D, Estimated Creat Clear 87, Estimated GFR 65, Est GFR ( Amer) 79 D, Glucose 178 H, Calcium 8.1 L, Magnesium 2.3 I & O for Last 24 hours: Intake & Output 11/01/22 11/02/22 11/03/22 11/04/22 23:59 23:59 23:59 23:59 Intake Total 2715 / 2715 1404 / 1404 770 / 970 300 / 300 Output Total 2300 / 2700 1350 / 1725 3200 / 4075 1525 / 1525 Balance 415 / 15 54 / -321 -2430 / -3105 -1225 / -1225 Weight 108.437 kg 109.883 kg 107.637 kg 107.637 kg Microbiology Reports for the Last 24 Hours: Microbiology 10/29/22 10:29 Blood - Other Blood Culture - Final Mil bates 11/01/22 10:58 Blood Blood Culture - Preliminary NO GROWTH AFTER 48 HOURS 11/01/22 10:52 Blood Blood Culture - Preliminary NO GROWTH AFTER 48 HOURS Constitutional Constitutional: no acute distress *Routine HEENT Exam Head: Present normocephalic Eye: Present EOMI and PERRL ENT: Present mucous membranes moist *Routine Neck Exam Neck: Present supple; Absent lymphadenopathy *Routine Respiratory Exam Respiratory: Present accessory muscle use and crackles (bibasilar) *Routine Cardiovascular Exam Cardiovascular: Present RRR *Routine Abdominal Exam Abdominal: Present soft and normoactive bowel sounds; Absent tenderness *Routine Extremities Exam Extremities: Present edema (1 to 2+ pitting edema to the knees bilaterally); Absent cyanosis or clubbing *Routine Skin Exam Skin: Present warm; Absent rash *Routine Neurological Exam Neurological: Present alert and oriented X3 Assessment and Plan *Assessment and plan (1) Acute on chronic heart failure with preserved ejection fraction (HFpEF): Status: Acute Category: Medical Code(s): I50.33 - Acute on chronic diastolic (congestive) heart failure (2) Acute on chronic respiratory failure with hypoxemia: Status: Acute Category: Medical Code(s): J96.21 - Acute and chronic respiratory failure with hypoxia (3) Pulmonary edema: Status: Acute Category: Medical Code(s): J81.1 - Chronic pulmonary edema (4) Class 2 obesity: Status: Chronic Category: Medical Code(s): E66.9 - Obesity, unspecified (5) COPD (chronic obstructive pulmonary disease): Status: Chronic Qualifiers: COPD type: unspecified COPD Qualified Code(s): J44.9 - Chronic obstructive pulmonary disease, unspecified Category: Medical Code(s): J44.9 - Chronic obstructive pulmonary disease, unspecified (6) Hyperlipidemia: Status: Chronic Qualifiers: Hyperlipidemia type: mixed hyperlipidemia Qualified Code(s): E78.2 - Mixed hyperlipidemia Category: Medical Code(s): E78.5 - Hyperlipidemia, unspecified (7) Type 2 diabetes mellitus:
--- NOTE | 2022-11-04 09:30 | PC.NURSE ---
courtesy tech note; rounded on pt, pt denied need to use the restroom or need for a drink at this time, pt c/o of right hip pain, and pain in both knees, notified nurse. call light within reach, no further requests at this time. John Solis, SRNA
[2022-11-04 12:15] LABS: POC Glucose,Bedside 292 (70-110)
--- NOTE | 2022-11-04 15:42 | PC.NURSE ---
courtesy tech note; rounded on pt, brought drink at pts request and assisted pt to change tv channel. pt denies snack, need to use the restroom, and need to reposition in the chair. call light within reach. no further requests at this time. John Solis, SRNA
[2022-11-04 17:00] LABS: POC Glucose,Bedside 139 (70-110)
--- NOTE | 2022-11-04 18:30 | PC.NURSE ---
courtesy tech note; rounded on pt, pt denies drink, need for restroom and need to reposition. pt ate 10% of dinner and states that his daughter is bringing food for him. call light within reach. no further requests at this time. John Solis, SRNA
[2022-11-04 19:33] LABS: POC Glucose,Bedside 194 (70-110)
[2022-11-05] VITALS (16 sets, daily range): BP systolic 112–131; BP diastolic 54–74; PULSE 59–74; RESP 16–19; TEMP 36.4–36.6; O2SAT 88–96; BMI 38.1
--- NOTE | 2022-11-05 05:18 | PC.NURSE ---
patient rested well through the night. stable on 4LNC. prn pain medication given. VSS.
[2022-11-05 05:38] LABS: POC Glucose,Bedside 243 (70-110)
[2022-11-05 07:22] LABS: Chloride 90 mmol/L (98-107); Potassium 3.7 mmoL/L (3.5-5.1); Sodium 137 mmol/L (136-145)
[2022-11-05 07:24] LABS: Blood Urea Nitrogen 35 mg/dl (9-20)
[2022-11-05 07:25] LABS: Creatinine Clearance Estimated 96 mL/min (50-200); Estimated Glomerular Filt Rate 82 ml/min (>60); GFR (African American) 99 ML/MIN (>60); Glucose 190 mg/dl (74-100)
[2022-11-05 07:32] LABS: Anion Gap 11.7 mEq/L (5-15); Carbon Dioxide 39 mmol/L (22.0-30.0)
--- NOTE | 2022-11-05 08:11 | PC.NURSE ---
pt noted to have large blood in his urine. Denies any pain with urination,burning or urgency.
--- NOTE | 2022-11-05 08:34 | EXP.PN ---
Subjective *Date: 11/05/22 *Time: 11:32 Interval history: He was weaned from Vapotherm to NC yesterday. i/o +1.9L/-2.2L net -0.34L Cr has decreased from 1.1 to 0.9. The patient had gross hematuria this morning but states that it has cleared since then. Dyspnea seems to be resolving. He denies chest pain. Exam Data for Last 24 hours Vital signs and Labs for Last 24 Hours: Temp Pulse Resp BP Pulse Ox FiO2 97.8 F 64 17 115/67 92 L 35 11/05/22 07:39 11/05/22 07:39 11/05/22 07:39 11/05/22 07:39 11/05/22 07:39 11/04/22 10:45 Laboratory Results - last 24 hr 11/04/22 11:45: POC Glucose 292 H 11/04/22 16:53: POC Glucose 139 H 11/04/22 19:26: POC Glucose 194 H 11/05/22 05:31: POC Glucose 243 H 11/05/22 06:48: Sodium 137, Potassium 3.7, Chloride 90 L, Carbon Dioxide 39 H, Anion Gap 11.7, BUN 35 H, Creatinine 0.90, Estimated Creat Clear 96, Estimated GFR 82, Est GFR ( Amer) 99 D, Glucose 190 H, Calcium 8.0 L I & O for Last 24 hours: Intake & Output 11/02/22 11/03/22 11/04/22 11/05/22 23:59 23:59 23:59 23:59 Intake Total 1404 / 1404 770 / 970 1770 / 1970 436 / 436 Output Total 1350 / 1725 3200 / 4075 3825 / 4175 351 / 351 Balance 54 / -321 -2430 / -3105 -2055 / -2205 85 / 85 Weight 109.883 kg 107.637 kg 107.637 kg 107.637 kg Microbiology Reports for the Last 24 Hours: Microbiology 10/29/22 10:29 Blood - Other Blood Culture - Final Mil bates Constitutional Constitutional: no acute distress *Routine HEENT Exam Head: Present normocephalic Eye: Present EOMI and PERRL ENT: Present mucous membranes moist *Routine Neck Exam Neck: Present supple; Absent lymphadenopathy *Routine Respiratory Exam Respiratory: Present accessory muscle use and crackles (bibasilar) *Routine Cardiovascular Exam Cardiovascular: Present RRR *Routine Abdominal Exam Abdominal: Present soft and normoactive bowel sounds; Absent tenderness *Routine Extremities Exam Extremities: Present edema (1 to 2+ pitting edema to the knees bilaterally); Absent cyanosis or clubbing *Routine Skin Exam Skin: Present warm; Absent rash *Routine Neurological Exam Neurological: Present alert and oriented X3 Assessment and Plan *Assessment and plan (1) Acute on chronic heart failure with preserved ejection fraction (HFpEF): Status: Acute Category: Medical Code(s): I50.33 - Acute on chronic diastolic (congestive) heart failure (2) Acute on chronic respiratory failure with hypoxemia: Status: Acute Category: Medical Code(s): J96.21 - Acute and chronic respiratory failure with hypoxia (3) Pulmonary edema: Status: Acute Category: Medical Code(s): J81.1 - Chronic pulmonary edema (4) Class 2 obesity: Status: Chronic Category: Medical Code(s): E66.9 - Obesity, unspecified (5) COPD (chronic obstructive pulmonary disease): Status: Chronic Qualifiers: COPD type: unspecified COPD Qualified Code(s): J44.9 - Chronic obstructive pulmonary disease, unspecified Category: Medical Code(s): J44.9 - Chronic obstructive pulmonary disease, unspecified (6) Hyperlipidemia: Status: Chronic Qualifiers: Hyperlipidemia type: mixed hyperlipidemia Qualified Code(s): E78.2 - Mixed hyperlipidemia Category: Medical Code(s): E78.5 - Hyperlipidemia, unspecified (7) Type 2 diabetes mellitus: Status: Chronic Qualifiers: Chronic kidney disease stage: stage 2 (mild) Diabetes mellitus snf insulin use: with snf use Category: Medical Code(s): E11.9 - Type 2 diabetes mellitus without complications (8) Essential hypertension: Status: Chronic Category: Medical Code(s): I10 - Essential (primary) hypertension Plan Mr. Robbins is a 77 year old male resident at [facility] with a past medical history of chronic h
[2022-11-05 08:45] LABS: Basophils % 0.4 % (0.1-2.0); Eosinophils # 0.2 K/mm3 (0.0-0.4); Eosinophils % 1.6 % (0.1-12.0); Hematocrit 39.9 % (42.0-52.0); Hemoglobin 12.4 g/dL (14.1-18.0); Lymphocytes # 1.4 K/mm3 (0.7-4.5); Mean Corpuscular HGB Conc 31.1 g/dL (31.8-35.4); Mean Corpuscular Hemoglobin 29.9 pg (27.0-31.2); Mean Corpuscular Volume 96.1 fl (80-94); Mean Platelet Volume 9.5 fl (7.4-10.4); Monocytes # 0.5 K/mm3 (0.1-1.0); Monocytes % 5.5 % (1.7-9.3); Neutrophils # 7.7 K/mm3 (1.8-7.8); Neutrophils % 78.5 % (37.0-80.0); Platelet Count 193 K/mm3 (142-424); Red Blood Count 4.15 M/mm3 (4.60-6.20); Red Cell Distribution Width 14.7 % (11.5-17.5); White Blood Count 9.8 K/mm3 (4.8-10.8)
[2022-11-05 09:37] LABS: Microscopic, Urine URINE MICROSCOPIC (MICROSCOPIC)
[2022-11-05 09:38] LABS: Appearance,Urine CLEAR (Clear); Bilirubin,Urine Negative (Negative); Blood, Urine 3+ (Negative); Color,Urine YELLOW (Yellow); Glucose,Urine (UA) 3+ (Negative); Ketones,Urine Negative (Negative); Leukocyte Esterase,Urine Negative (Negative); Nitrate,Urine Negative (Negative); Protein,Urine Negative (Negative); Specific Gravity, Urine <= 1.005 (1.005-1.030); Urobilinogen,Urine 0.2 EU/dl (0.2)
[2022-11-05 09:48] LABS: Bacteria,Urine Trace /lpf; Squamous Epithelial Cell,Urine Occasional #/hpf (0-5)
[2022-11-05 11:55] LABS: POC Glucose,Bedside 225 (70-110)
[2022-11-05 17:18] LABS: POC Glucose,Bedside 225 (70-110)
[2022-11-05 19:48] LABS: POC Glucose,Bedside 210 (70-110)
[2022-11-06] VITALS: BP 101/45; PULSE 60; PULSE 66; RESP 18; TEMP 36.4; O2SAT 89
[2022-11-06 04:00] VITALS: BP 113/72; PULSE 56; RESP 16; TEMP 36.7; O2SAT 97; BMI 39.6
[2022-11-06 05:40] LABS: POC Glucose,Bedside 146 (70-110)
--- NOTE | 2022-11-06 05:45 | PC.NURSE ---
pt rested through the night. no hematuria noted. pt wore bipap for a few hours while sleeping. prn pain meds given for generalized pain in legs/back. pt is on 5L nc satting up in the 88-95.
[2022-11-06 05:50] VITALS: PULSE 56; PULSE 57; O2SAT 96
[2022-11-06 05:50] LABS: Basophils # 0.1 K/mm3 (0-0.2); Basophils % 0.7 % (0.1-2.0); Eosinophils # 0.2 K/mm3 (0.0-0.4); Eosinophils % 1.9 % (0.1-12.0); Hematocrit 41.9 % (42.0-52.0); Lymphocytes # 1.3 K/mm3 (0.7-4.5); Lymphocytes % 15.9 % (10-50); Mean Platelet Volume 9.3 fl (7.4-10.4); Monocytes # 0.5 K/mm3 (0.1-1.0); Monocytes % 5.9 % (1.7-9.3); Neutrophils # 6.3 K/mm3 (1.8-7.8); Neutrophils % 75.7 % (37.0-80.0); Platelet Count 167 K/mm3 (142-424); Red Blood Count 4.32 M/mm3 (4.60-6.20); Red Cell Distribution Width 14.9 % (11.5-17.5); White Blood Count 8.3 K/mm3 (4.8-10.8)
[2022-11-06 06:00] LABS: Chloride 94 mmol/L (98-107); Potassium 4.2 mmoL/L (3.5-5.1); Sodium 136 mmol/L (136-145)
[2022-11-06 06:03] LABS: Anion Gap 10.2 mEq/L (5-15); Blood Urea Nitrogen 33 mg/dl (9-20); Calcium 8.1 mg/dl (8.4-10.2); Carbon Dioxide 36 mmol/L (22.0-30.0); Creatinine Clearance Estimated 99 mL/min (50-200); Estimated Glomerular Filt Rate 73 ml/min (>60); GFR (African American) 88 ML/MIN (>60); Glucose 138 mg/dl (74-100)
[2022-11-06 08:00] VITALS: BP 102/57; PULSE 60; PULSE 61; RESP 18; TEMP 36.8; O2SAT 96
--- NOTE | 2022-11-06 08:21 | EXP.PN ---
Subjective *Date: 11/06/22 *Time: 09:54 Interval history: HR has been in the 50-60s. i/o +670/ -330, net -2628 Creatinine level increased from 0.9 to 1. He hasn't had any more hematuria. He is breathing comfortably. Exam Data for Last 24 hours Vital signs and Labs for Last 24 Hours: Temp Pulse Resp BP Pulse Ox FiO2 98.0 F 56 L 16 113/72 96 32 11/06/22 04:00 11/06/22 05:50 11/06/22 04:00 11/06/22 04:00 11/06/22 05:50 11/05/22 18:30 Laboratory Results - last 24 hr 11/05/22 06:48: WBC 9.8, RBC 4.15 L, Hgb 12.4 L, Hct 39.9 L, MCV 96.1 H, MCH 29.9, MCHC 31.1 L, RDW 14.7, Plt Count 193, MPV 9.5, Neut % (Auto) 78.5, Lymph % (Auto) 14.0, [place] % (Auto) 5.5, Eos % (Auto) 1.6, Baso % (Auto) 0.4, Neut # (Auto) 7.7, Lymph # (Auto) 1.4, [facility] # (Auto) 0.5, Eos # (Auto) 0.2, Baso # (Auto) 0.0 11/05/22 09:30: Urine Color Yellow, Urine Appearance Clear, Urine pH 7.0, Ur Specific [place] <= 1.005, Urine Protein Negative, Urine Glucose (UA) 3+, Urine Ketones Negative, Urine Blood 3+, Urine Nitrate Negative, Urine Bilirubin Negative, Urine Urobilinogen 0.2, Ur Leukocyte Esterase Negative, Urine RBC 10-20, Urine WBC None, Ur Squamous Epith Cells Occasional, Urine Bacteria Trace 11/05/22 11:48: POC Glucose 225 H 11/05/22 17:10: POC Glucose 225 H 11/05/22 19:36: POC Glucose 210 H 11/06/22 05:33: POC Glucose 146 H 11/06/22 05:44: WBC 8.3, RBC 4.32 L, Hgb 13.0 L, Hct 41.9 L, MCV 97.0 H, MCH 30.0, MCHC 31.0 L, RDW 14.9, Plt Count 167, MPV 9.3, Neut % (Auto) 75.7, Lymph % (Auto) 15.9, [facility] % (Auto) 5.9, Eos % (Auto) 1.9, Baso % (Auto) 0.7, Neut # (Auto) 6.3, Lymph # (Auto) 1.3, [facility] # (Auto) 0.5, Eos # (Auto) 0.2, Baso # (Auto) 0.1 11/06/22 05:44: Sodium 136, Potassium 4.2, Chloride 94 L, Carbon Dioxide 36 H, Anion Gap 10.2, BUN 33 H, Creatinine 1.00, Estimated Creat Clear 99, Estimated GFR 73, Est GFR ( Amer) 88, Glucose 138 H D, Calcium 8.1 L I & O for Last 24 hours: Intake & Output 11/03/22 11/04/22 11/05/22 11/06/22 23:59 23:59 23:59 23:59 Intake Total 770 / 970 1770 / 1970 658 / 1108 450 / 450 Output Total 3200 / 4075 3825 / 4175 2501 / 3401 1150 / 1150 Balance -2430 / -3105 -2055 / -2205 -1843 / -2293 -700 / -700 Weight 107.637 kg 107.637 kg 107.637 kg 111.782 kg Constitutional Constitutional: no acute distress *Routine HEENT Exam Head: Present normocephalic Eye: Present EOMI and PERRL ENT: Present mucous membranes moist *Routine Neck Exam Neck: Present supple; Absent lymphadenopathy *Routine Respiratory Exam Respiratory: Present accessory muscle use and crackles (bibasilar) *Routine Cardiovascular Exam Cardiovascular: Present RRR *Routine Abdominal Exam Abdominal: Present soft and normoactive bowel sounds; Absent tenderness *Routine Extremities Exam Extremities: Present edema (1 to 2+ pitting edema to the knees bilaterally); Absent cyanosis or clubbing *Routine Skin Exam Skin: Present warm; Absent rash *Routine Neurological Exam Neurological: Present alert and oriented X3 Assessment and Plan *Assessment and plan (1) Acute on chronic heart failure with preserved ejection fraction (HFpEF): Status: Acute Category: Medical Code(s): I50.33 - Acute on chronic diastolic (congestive) heart failure (2) Acute on chronic respiratory failure with hypoxemia: Status: Acute Category: Medical Code(s): J96.21 - Acute and chronic respiratory failure with hypoxia (3) Pulmonary edema: Status: Acute Category: Medical Code(s): J81.1 - Chronic pulmonary edema (4) Class 2 obesity: Status: Chronic Category: Medical Code(s): E66.9 - Obesity, unspecified (5) COPD (chronic obstructive pulmonary disease): Status: Chronic Qualifiers: COPD type: unspecified COPD Qualified Code(s): J44.9 - Chronic obstructive pulmonary disease, unspecified Category: Medical Code(s): J44.9 - Chronic obstructive pulmonary disease, unspecified (6)
--- NOTE | 2022-11-06 09:33 | EXP.PULM.PN ---
Subjective *Date: 11/06/22 *Time: 10:58 Interval history: No acute respiratory vents over the weekend. Patient admits improving respiratory status. Reluctant to use his NIV at night Pulmonology Exam Inpatient Vital signs and Labs for Last 24 Hours: Temp Pulse Resp BP Pulse Ox FiO2 98.2 F 61 18 102/57 L 96 32 11/06/22 08:00 11/06/22 08:00 11/06/22 08:00 11/06/22 08:00 11/06/22 08:00 11/05/22 18:30 Laboratory Results - last 24 hr 11/05/22 09:30: Urine Color Yellow, Urine Appearance Clear, Urine pH 7.0, Ur Specific [place] <= 1.005, Urine Protein Negative, Urine Glucose (UA) 3+, Urine Ketones Negative, Urine Blood 3+, Urine Nitrate Negative, Urine Bilirubin Negative, Urine Urobilinogen 0.2, Ur Leukocyte Esterase Negative, Urine RBC 10-20, Urine WBC None, Ur Squamous Epith Cells Occasional, Urine Bacteria Trace 11/05/22 11:48: POC Glucose 225 H 11/05/22 17:10: POC Glucose 225 H 11/05/22 19:36: POC Glucose 210 H 11/06/22 05:33: POC Glucose 146 H 11/06/22 05:44: WBC 8.3, RBC 4.32 L, Hgb 13.0 L, Hct 41.9 L, MCV 97.0 H, MCH 30.0, MCHC 31.0 L, RDW 14.9, Plt Count 167, MPV 9.3, Neut % (Auto) 75.7, Lymph % (Auto) 15.9, [place] % (Auto) 5.9, Eos % (Auto) 1.9, Baso % (Auto) 0.7, Neut # (Auto) 6.3, Lymph # (Auto) 1.3, [place] # (Auto) 0.5, Eos # (Auto) 0.2, Baso # (Auto) 0.1 11/06/22 05:44: Sodium 136, Potassium 4.2, Chloride 94 L, Carbon Dioxide 36 H, Anion Gap 10.2, BUN 33 H, Creatinine 1.00, Estimated Creat Clear 99, Estimated GFR 73, Est GFR ( Amer) 88, Glucose 138 H D, Calcium 8.1 L I & O for Labs for Last 24 Hours: Intake & Output 11/03/22 11/04/22 11/05/22 11/06/22 23:59 23:59 23:59 23:59 Intake Total 770 / 970 1770 / 1970 658 / 1108 630 / 630 Output Total 3200 / 4075 3825 / 4175 2501 / 3401 1150 / 1150 Balance -2430 / -3105 -2055 / -2205 -1843 / -2293 -520 / -520 Weight 237 lb 4.8 oz 237 lb 4.783 oz 237 lb 4.783 oz 246 lb 7 oz Microbiology Reports for the Last 24 Hours: Microbiology 10/29/22 10:29 Blood - Other Blood Culture - Preliminary Gram Positive Cocci Constitutional: Present severe distress Head: Present normocephalic and atraumatic ENT: Present normal exam, normal oropharynx and mucous membranes moist Neck: Present normal inspection and full ROM Respiratory: Present prolonged expiratory phase, respiratory distress, wheezes, crackles, diminished air movement and able to speak in complete sentences Cardiac: Present S1/S2, Tachycardia and radial pulses present GI: Present soft and distention; Absent tenderness or guarding Skin: Present intact and rash; Absent cyanosis or jaundice Neuro: Present alert, awake and oriented x 3 Extremities: Present normal inspection and edema; Absent clubbing or cyanosis Psychiatric: Present normal affect and cooperative Assessment and Plan *Assessment and plan (1) Acute on chronic respiratory failure with hypoxemia: Status: Acute Category: Medical Code(s): J96.21 - Acute and chronic respiratory failure with hypoxia (2) Pulmonary edema: Status: Acute Category: Medical Code(s): J81.1 - Chronic pulmonary edema (3) Pleural effusion: Status: Acute Category: Medical Code(s): J90 - Pleural effusion, not elsewhere classified Plan Mr. Robbins is a 77-year-old male history of heart failure preserved EF, history of COPD greater than [id number] smoking history of melasma greater than 15 years ago, chronic hypoxic respiratory failure with 3 to 4 L at baseline was admitted to the hospital on 10/29/2022 and has been managed for heart failure exacerbation. Patient on admission was initiated on BiPAP and initiated diuretics. He continued to receive DuoNebs for his COPD. Was eventually weaned from BiPAP to high flow and intermittently needing BiPAP while on high flow initially and then eventually weaned completely to high flow. However patient continues remain on high oxygen requirements, this morning o
[2022-11-06 10:50] LABS: POC Glucose,Bedside 287 (70-110)
[2022-11-06 12:00] VITALS: BP 95/57; PULSE 60; PULSE 61; RESP 18; TEMP 36.6; O2SAT 94
--- NOTE | 2022-11-06 13:39 | EXP.DC.SUM ---
General Admission date:: 10/29/22 Discharge date: 11/06/22 Hospital Course Hospital Course Hospital Course: Mr. Robbins is a 77 year old male resident at [facility] with a past medical history of chronic hypoxic respiratory failure on 3-4L NC continuously at baseline, COPD, HFpEF, atrial fibrillation on Xarelto, chronic pain, HTN, HLD, T2DM and obesity who presented with dyspnea x 1 week and admitted with CHF exacerbation. He was placed on BIPAP and diuretics were initiated. He had been taking his own supply of oxycodone while in the hospital; this was confiscated on 11/01/22. On 11/02/22 Pulmonology ordered a CTA Chest which revealed moderate b/l pleural effusions and bibasilar consolidation. The patient diuresed well with IV Bumex and by day of discharge his supplemental oxygen was weaned to 3-4L NC, which was what he required at baseline prior to this admission. Polysomnography was ordered for the patient because of suspicion for JEREMIAS/OHS. At discharge he is to resume his Bumex PO 2 mg BID. Education regarding salt and fluid restriction was provided. Hospital course was complicated by development of gross hematuria. His aspirin and Xarelto were held and by the day of discharge his hematuria had resolved. UA did not show any signs of infection. He is to resume his Xarelto and aspirin and a follow up appointment was made with Urology in two weeks just in case hematuria recurs. Staph epidermidis grew in 1 of 2 blood cultures. Repeat blood cultures were collected on 11/01 and were negative at 48 hours. #acute on chronic hypoxic respiratory failure #CHF exacerbation #hematuria, resolved #atrial fibrillation on Xarelto Exam Data for Last 24 hours Vital signs and Labs for Last 24 Hours: Temp Pulse Resp BP Pulse Ox FiO2 97.9 F 61 18 95/57 L 94 L 32 11/06/22 12:00 11/06/22 12:00 11/06/22 12:00 11/06/22 12:00 11/06/22 12:00 11/05/22 18:30 Laboratory Results - last 24 hr 11/05/22 17:10: POC Glucose 225 H 11/05/22 19:36: POC Glucose 210 H 11/06/22 05:33: POC Glucose 146 H 11/06/22 05:44: WBC 8.3, RBC 4.32 L, Hgb 13.0 L, Hct 41.9 L, MCV 97.0 H, MCH 30.0, MCHC 31.0 L, RDW 14.9, Plt Count 167, MPV 9.3, Neut % (Auto) 75.7, Lymph % (Auto) 15.9, [place] % (Auto) 5.9, Eos % (Auto) 1.9, Baso % (Auto) 0.7, Neut # (Auto) 6.3, Lymph # (Auto) 1.3, [place] # (Auto) 0.5, Eos # (Auto) 0.2, Baso # (Auto) 0.1 11/06/22 05:44: Sodium 136, Potassium 4.2, Chloride 94 L, Carbon Dioxide 36 H, Anion Gap 10.2, BUN 33 H, Creatinine 1.00, Estimated Creat Clear 99, Estimated GFR 73, Est GFR ( Amer) 88, Glucose 138 H D, Calcium 8.1 L 11/06/22 10:34: POC Glucose 287 H I & O for Last 24 hours: Intake & Output 11/03/22 11/04/22 11/05/22 11/06/22 23:59 23:59 23:59 23:59 Intake Total 770 / 970 1770 / 1970 658 / 1108 870 / 870 Output Total 3200 / 4075 3825 / 4175 2501 / 3401 2350 / 2350 Balance -2430 / -3105 -2055 / -2205 -1843 / -2293 -1480 / -1480 Weight 107.637 kg 107.637 kg 107.637 kg 111.782 kg Microbiology Reports for the Last 24 Hours: Microbiology 11/01/22 10:58 Blood Blood Culture - Final NO GROWTH AFTER 5 DAYS 11/01/22 10:52 Blood Blood Culture - Final NO GROWTH AFTER 5 DAYS Constitutional Constitutional: no acute distress *Routine HEENT Exam Head: Present normocephalic Eye: Present EOMI and PERRL ENT: Present mucous membranes moist *Routine Neck Exam Neck: Present supple; Absent lymphadenopathy *Routine Respiratory Exam Respiratory: Present accessory muscle use and crackles (bibasilar) *Routine Cardiovascular Exam Cardiovascular: Present RRR *Routine Abdominal Exam Abdominal: Present soft and normoactive bowel sounds; Absent tenderness *Routine Extremities Exam Extremities: Present edema (1 to 2+ pitting edema to the knees bilaterally); Absent cyanosis or clubbing *Routine Skin Exam Skin: Present warm; Absent rash *Routine Neurological Exam Neurological
[2022-11-06 13:41] LABS: Coronavirus 19, PCR Not Detected (NotDetected); Influenza A, PCR Not Detected (NotDetected); Influenza B, PCR Not Detected (NotDetected)
--- NOTE | 2022-11-07 14:55 | CARE MANAGER ---
Spoke with nurse at [facility] for post-discharge phone interview, no issues noted. No sleep study scheduled at this time.
== END 2022-11-06 15:00 | DRG 682 ==
LOC: ER 14:03 → 2ND 14:09
PROVIDERS: Internal Medicine; Internal Medicine Pulmonary Disease; Nurse Practitioner Family; Admitting Provider Internal Medicine Adolescent Medicine; Emergency Provider Student in an Organized Health Care Education/Training Program; PCP Emergency Medicine; Visit Provider Internal Medicine Adolescent Medicine
DX: I13.10 Hypertensive heart and chronic kidney disease without heart failure, with stage 1 through stage 4 chronic kidney disease, or unspecified chronic kidney disease (principal); I50.33 Acute on chronic diastolic (congestive) heart failure; J96.21 Acute and chronic respiratory failure with hypoxia; J96.12 Chronic respiratory failure with hypercapnia; E11.22 Type 2 diabetes mellitus with diabetic chronic kidney disease; N18.2 Chronic kidney disease, stage 2 (mild); Z99.81 Dependence on supplemental oxygen; Z51.5 Encounter for palliative care; J44.9 Chronic obstructive pulmonary disease, unspecified; E78.2 Mixed hyperlipidemia; Z79.4 Long term (current) use of insulin; E66.9 Obesity, unspecified; Z68.39 Body mass index [BMI] 39.0-39.9, adult; G62.9 Polyneuropathy, unspecified; I48.91 Unspecified atrial fibrillation
CPT/HCPCS: 36415; 51702; 71045; 71250; 80048; 80053; 81001; 82803; 82962; 83036; 83735; 83880; 84132; 84145; 85007; 85025; 86140; 87040; 87077; 87086; 87186; 87581; 87632; 87798; 93005; 94640; 94660; 94760; 94761; 97110; 97116; 97162; 97166; 97530; 99285; C9803; J0456; J0696; U0003; U0005

== ENCOUNTER 2022-11-18 01:47 | Observation (INO) | payer MEDICARE, SELFPAY ==
[2022-11-18] VITALS (18 sets, daily range): BP systolic 105–128; BP diastolic 60–109; PULSE 63–129; RESP 18–24; TEMP 36.3–37.3; O2SAT 64–100; BMI 38.3; BMI 39.2
--- NOTE | 2022-11-18 | ECG_ITS ---
APPROVED REPORT Exam: Resting ECG HR:130 bpm ECG Measurements Heart Rate 130 AXES QRSd 97 QRS 113 QT 324 T 44 QTc 401 Conclusion ATRIAL FIBRILLATION WITH RAPID VENTRICULAR RESPONSE INCOMPLETE RIGHT BUNDLE BRANCH BLOCK [90+ ms QRS DURATION, TERMINAL R IN V1/V2, 40+ ms S IN I/aVL/V4/V5/V6] POSSIBLE RIGHT VENTRICULAR HYPERTROPHY [SOME/ALL OF: PROMINENT R IN V1, LATE TRANSITION, RAD, ROSI, SSS] MODERATE ST DEPRESSION [0.05+ mV ST DEPRESSION] ABNORMAL ECG UNCONFIRMED REPORT Electronically signed by : Markus Bravo MD 11/18/2022 15:39:05
--- NOTE | 2022-11-18 02:00 | PC.NURSE ---
Pt complains of being uncomfortable in bed. Pt offered recliner, but he refused it at this time. No other needs voiced at this time. Call light within reach.
[2022-11-18 02:01] LABS: Coronavirus 19, PCR Not Detected (NotDetected); Influenza A, PCR Not Detected (NotDetected); Influenza B, PCR Not Detected (NotDetected)
[2022-11-18 02:05] LABS: ABG Base Excess 6.4 mmol/L (-2.4-2.3); ABG Oxygen Saturation 99 % (90-100); ABG PH 7.41 mmol/L (7.35-7.45); ABG PO2 130.1 mmhg (80-100); ABG TCO2 32.6 mmhg (23-27); Allen's Test Acceptable; Oxygen 100 %; Source Right Radial
[2022-11-18 02:08] LABS: ABG PCO2 50.2 mmhg (35.0-45.0)
--- NOTE | 2022-11-18 02:30 | XR_ITS ---
PROCEDURE INFORMATION: Exam: XR Chest Exam date and time: 11/18/2022 3:29 AM Age: 77 years old Clinical indication: Shortness of breath; Additional info: SOA TECHNIQUE: Imaging protocol: Radiologic exam of the chest. Views: 1 view. COMPARISON: CR XR CHEST PORTABLE 11/03/2022 5:20 AM FINDINGS: Lungs: Unremarkable. No consolidation. Pleural spaces: Unremarkable. No pleural effusion. No pneumothorax. Heart/Mediastinum: Moderate cardiomegaly. Bones/joints: Unremarkable. IMPRESSION: No acute findings. Stable cardiomegaly.
--- NOTE | 2022-11-18 02:35 | PC.NURSE ---
Pt repositioned in bed for comfort
[2022-11-18 02:37] LABS: Basophils % 0.4 % (0.1-2.0); Eosinophils # 0.1 K/mm3 (0.0-0.4); Eosinophils % 1.1 % (0.1-12.0); Hematocrit 39.6 % (42.0-52.0); Hemoglobin 12.2 g/dL (14.1-18.0); Lymphocytes # 1.3 K/mm3 (0.7-4.5); Lymphocytes % 12.6 % (10-50); Mean Corpuscular HGB Conc 30.9 g/dL (31.8-35.4); Mean Corpuscular Hemoglobin 29.4 pg (27.0-31.2); Mean Corpuscular Volume 94.9 fl (80-94); Monocytes # 0.6 K/mm3 (0.1-1.0); Monocytes % 5.6 % (1.7-9.3); Neutrophils # 8.2 K/mm3 (1.8-7.8); Neutrophils % 80.3 % (37.0-80.0); Platelet Count 172 K/mm3 (142-424); Red Blood Count 4.17 M/mm3 (4.60-6.20); Red Cell Distribution Width 15.2 % (11.5-17.5); White Blood Count 10.3 K/mm3 (4.8-10.8)
--- NOTE | 2022-11-18 02:47 | HMH.EDSOB ---
Discharge Plan Disposition Patient Disposition: Admitted as Observation Chief Complaint: Shortness of Breath/Dyspnea Prescriptions Prescriptions: No Action pantoprazole 40 mg Tablet,Delayed Release (Dr/Ec) 40 mg PO DAILY aspirin 81 mg Tablet 81 mg PO DAILY alfuzosin 10 mg Tablet Extended Release 24 Hr 10 mg PO DAILY Rx Instructions: administer after the same meal each day glipizide 5 mg Tablet Extended Release 24hr 5 mg PO AM Rx Instructions: Take one tablet by mouth every morning with food bumetanide 2 mg Tablet 2 mg PO BID sennosides 15 mg Tablet,Chewable 15 mg PO DAILYP PRN (Reason: Constipation) meclizine 25 mg Tablet 25 mg PO Q8HP PRN (Reason: Dizziness) paroxetine HCl 20 mg Tablet 20 mg PO AM metoprolol tartrate 50 mg Tablet 50 mg PO BID Saline Nasal Mist 0.65 % Aerosol,[place] 1 spray INTRANASAL Q2H PRN (Reason: Nasal congestion/dryness) Xarelto 20 mg Tablet 20 mg PO DAILY Rx Instructions: must administer with evening meal polyethylene glycol 3350 [Miralax] 17 gram Powder In Packet 17 g PO BID PRN (Reason: constipation) Qty: 30 0RF oxycodone 10 mg Tablet 10 mg PO Q6H PRN (Reason: Pain) Qty: 12 0RF Trelegy Ellipta 100-62.5-25 mcg blister with device 1 puff inhalation DAILY atorvastatin 10 mg Tablet 10 mg PO HS omeprazole 20 mg Capsule,Delayed Release(Dr/Ec) 20 mg PO BID Discharge ED Provider: Froilan (ED)Siddhartha Resp/SOB HPI General Chief Complaint: Shortness of Breath/Dyspnea Stated Complaint: SOA Time Seen by Provider: 11/18/22 02:47 Mode of Arrival: EMS Source of Information: Patient, EMS and Medical Record Limitations: No Limitations Description of Symptoms (Recalled from ER Triage Doc. by RN): Pt arrives to ED via EMS from his shelter. Per EMS report, shelter staff stated he was sats of 70's on 5L NC. Pt arrives to ED on 5L satting 91%. Pt o2 sats in the 60's on room air. Pt reports feeling weak all over and having SOB. Pt alert and oriented x4 on arrival to ED. Pt has hx of COPD, CHF, and chronic respiratory failure. History of Present Illness sent from [facility] with reported inc sob - reported weakness - has hx of a fib and diabetes -and copd MD Complaint: shortness of breath Onset (ago): day(s) Severity: similar to previous episodes Consistency/Duration: intermittent Known history of: COPD, congestive heart failure and diabetes Associated symptoms: denies other symptoms Related Data Home oxygen amount: 4 liters Home Medications Medication Instructions Recorded Confirmed alfuzosin 10 mg tablet,extended 10 mg PO DAILY Prostate 05/02/22 11/18/22 release 24 hr aspirin 81 mg tablet 81 mg PO DAILY Heart health 05/02/22 11/18/22 glipizide 5 mg tablet, extended 5 mg PO AM Diabetes 05/02/22 11/18/22 release 24 hr pantoprazole 40 mg tablet,delayed 40 mg PO DAILY acid reflux 05/02/22 11/18/22 release bumetanide 2 mg tablet 2 mg PO BID Fluid 10/30/22 11/18/22 meclizine 25 mg tablet 25 mg PO Q8HP PRN Dizziness 10/30/22 11/18/22 metoprolol tartrate 50 mg tablet 50 mg PO BID High blood pressure 10/30/22 11/18/22 paroxetine HCl 20 mg tablet 20 mg PO AM Depression 10/30/22 11/18/22 rivaroxaban 20 mg tablet (Xarelto) 20 mg PO DAILY Blood thinner, CAD 10/30/22 11/18/22 sennosides 15 mg chewable tablet 15 mg PO DAILYP PRN Constipation 10/30/22 11/18/22 sodium chloride 0.65 % nasal spray 1 spray intranasal Q2H PRN Nasal 10/30/22 11/18/22 aerosol (Saline Nasal Mist) congestion/dryness atorvastatin 10 mg tablet 10 mg PO HS High cholesterol 11/18/22 11/18/22 fluticasone fur. 100 mcg-umeclid 1 puff inhalation DAILY 11/18/22 11/18/22 62.5 mcg-vilant 25 mcg copd/shortness of air inhalat.powder (Trelegy Ellipta) omeprazole 20 mg capsule,delayed 20 mg PO BID gerd 11/18/22 11/18/22 release Previous Rx's Medication Instructions Recorded oxycodone 10 mg tablet 10 mg PO Q6H PRN
[2022-11-18 03:11] LABS: Erythrocyte Sedimentation Rate 92 mm/hr (0-20)
--- NOTE | 2022-11-18 03:14 | PC.NURSE ---
Pt repositioned in bed for comfort
[2022-11-18 03:22] LABS: Microscopic, Urine URINE MICROSCOPIC (MICROSCOPIC)
[2022-11-18 03:27] LABS: Appearance,Urine CLEAR (Clear); Blood, Urine Negative (Negative); Color,Urine YELLOW (Yellow); Glucose,Urine (UA) Negative (Negative); Ketones,Urine TRACE (Negative); Leukocyte Esterase,Urine TRACE (Negative); Nitrate,Urine Negative (Negative); Protein,Urine TRACE (Negative); Specific Gravity, Urine 1.025 (1.005-1.030); Urobilinogen,Urine 0.2 EU/dl (0.2)
[2022-11-18 03:30] LABS: Alanine Aminotransferase 19 U/L (12-78); Albumin Level 3.2 g/dl (3.5-5.0); Albumin/Globulin Ratio 0.9 (1.1-1.8); Alkaline Phosphatase 102 U/L (38-126); Anion Gap 12.4 mEq/L (5-15); Aspartate Amino Transferase 30 U/L (17-59); Calcium 7.9 mg/dl (8.4-10.2); Carbon Dioxide 35 mmol/L (22.0-30.0); Chloride 92 mmol/L (98-107); Globulin 3.7 g/dL (1.3-3.2); Glucose 170 mg/dl (74-100); Potassium 3.4 mmoL/L (3.5-5.1); Sodium 136 mmol/L (136-145); Total Protein,Serum 6.9 g/dl (6.3-8.2)
[2022-11-18 03:35] LABS: Blood Urea Nitrogen 20 mg/dl (9-20); Creatinine Clearance Estimated 99 mL/min (50-200); Estimated Glomerular Filt Rate 73 ml/min (>60); GFR (African American) 88 ML/MIN (>60)
[2022-11-18 03:36] LABS: Bilirubin,Urine 1+ (Negative)
[2022-11-18 03:38] LABS: C-Reactive Protein 53.6 mg/L (0-4)
[2022-11-18 03:44] LABS: Bacteria,Urine 1+ /lpf; RBC,Urine Occasional #/hpf (0-3); Squamous Epithelial Cell,Urine Occasional #/hpf (0-5)
[2022-11-18 03:45] LABS: NT Pro Brain Natriuretic Pep. 5330 pg/mL (0-450)
--- NOTE | 2022-11-18 03:45 | PC.NURSE ---
Pt repositioned in bed for comfort
[2022-11-18 03:46] LABS: Troponin I < 0.01 ng/ml (0.00-0.034)
[2022-11-18 03:49] LABS: Procalcitonin 0.164 ng/mL (0.0-2.0)
--- NOTE | 2022-11-18 04:15 | PC.NURSE ---
Pt repositioned in bed for comfort
--- NOTE | 2022-11-18 04:50 | PC.NURSE ---
Pt placed on bedpan at this time
--- NOTE | 2022-11-18 05:09 | PC.NURSE ---
Pt did not have a bowel movement on bedpan at this time
--- NOTE | 2022-11-18 05:28 | PC.NURSE ---
Dr. Mcgovern at
--- NOTE | 2022-11-18 05:31 | PC.NURSE ---
Upon admission to the ED, patient was being assisted to undress and change into his gown when it was noted that there were several ex-lax pills in his pocket in addition to his afrin inhaler. Medications were confiscated and will be sent to the floor and locked in his room.
--- NOTE | 2022-11-18 05:47 | PC.NURSE ---
Dr. Mcgovern speaking with Dr. Aviles
--- NOTE | 2022-11-18 05:53 | PC.NURSE ---
Pt assigned to 214. Admission notified of admit.
[2022-11-18 06:04] LABS: Troponin I 0.05 ng/ml (0.00-0.034)
--- NOTE | 2022-11-18 06:14 | PC.NURSE ---
RECEIVED PHONE REPORT FROM GILBERT/ED NURSE AT 0605. 77 YO MALE WITH COPD/CHF EXACERBATION.
[2022-11-18 09:24] LABS: Troponin I 0.08 ng/ml (0.00-0.034)
[2022-11-18 11:51] LABS: POC Glucose,Bedside 111 (70-110)
--- NOTE | 2022-11-18 12:50 | EXP.HP ---
History of Present Illness *Admission Date: 11/18/22 *Reason for visit:: Cough/congestion *History of present illness: 77-year-old male who is a primary patient of Dr. Knapp in [place], [place], who normally resides at the [facility] and has received hospice care there for many months because of his CHF and COPD issues. He was admitted to [facility] a couple of months ago as a transfer to the cardiology service, and after that was transferred back to the [facility] for PT, OT and skilled care as well as aggressive diuresis. He has been on my service there. While he has been at the [facility] hospice it is discontinued because of his ongoing therapy needs. Over the past couple of weeks he has had increasing worsening of his hypoxia and has been intermittently confused and has had worsening edema in the face of aggressive p.o. diuresis and oxygen therapy. Several days ago I advised that he would probably need to be readmitted to the hospital the patient refused. We treated him with O2, IM diuresis at the senior care and he improved however through the night last night it became worse again at this time agreed to come to the hospital and was transferred to the [facility] emergency department by EMS. Admitted through the ER. Please see ER notes for details. Patient is awake this morning. Able to answer questions but nurses report that he quickly falls asleep and when he sits up on the side of the bed falls asleep and has a high fall risk. He denies pain, reports that his breathing is somewhat congested, but otherwise has no complaints. [facility] Disclaimer: The information contained in this section may have been updated after the patient was seen, as this information can be updated by other users. Medical History (Updated 11/18/22 @ 06:25 by Felicita Espinoza RN) CHF (congestive heart failure) COPD (chronic obstructive pulmonary disease) COPD exacerbation Diabetes GERD (gastroesophageal reflux disease) Hyperlipidemia Hypertension Pleural effusion Pneumonia Family History No significant family history Social History (Updated 10/29/22 @ 19:40 by Eileen Lyn RN) Smoking Status: Former smoker alcohol intake: never substance use type: denies use current occupational status: retired Travel in the last 8 weeks: None household members: none housing: assisted living facility lives independently: Yes marital status: number of children: 1 diet: diabetic physical activity: none Review of Systems Review of Systems Review of systems:: unable to obtain Meds Home Medications and Allergies Home Medications Medication Instructions Recorded Confirmed Type alfuzosin 10 mg tablet,extended 10 mg PO DAILY Prostate 05/02/22 11/18/22 History release 24 hr aspirin 81 mg tablet 81 mg PO DAILY Heart health 05/02/22 11/18/22 History glipizide 5 mg tablet, extended 5 mg PO AM Diabetes 05/02/22 11/18/22 History release 24 hr pantoprazole 40 mg tablet,delayed 40 mg PO DAILY acid reflux 05/02/22 11/18/22 History release bumetanide 2 mg tablet 2 mg PO BID Fluid 10/30/22 11/18/22 History meclizine 25 mg tablet 25 mg PO Q8HP PRN Dizziness 10/30/22 11/18/22 History metoprolol tartrate 50 mg tablet 50 mg PO BID High blood pressure 10/30/22 11/18/22 History paroxetine HCl 20 mg tablet 20 mg PO AM Depression 10/30/22 11/18/22 History rivaroxaban 20 mg tablet (Xarelto) 20 mg PO DAILY Blood thinner, CAD 10/30/22 11/18/22 History sennosides 15 mg chewable tablet 15 mg PO DAILYP PRN Constipation 10/30/22 11/18/22 History sodium chloride 0.65 % nasal spray 1 spray intranasal Q2H PRN Nasal 10/30/22 11/18/22 History aerosol (Saline Nasal Mist) congestion/dryness oxycodone 10 mg tablet 10 mg PO Q6H PRN Pain #12 tabs 11/06/22 11/18/22 Rx polyethylene glycol 3350 17 gram 17 g PO BID PRN constipation
--- NOTE | 2022-11-18 15:10 | PC.NURSE ---
Paged Dr. Aviles about patient's oxygenation status of 83% on 5LNC. New order for vapotherm obtained.
[2022-11-18 16:27] LABS: POC Glucose,Bedside 73 (70-110)
[2022-11-18 17:48] LABS: POC Glucose,Bedside 136 (70-110)
--- NOTE | 2022-11-18 18:12 | PC.NURSE ---
Patient confused during shift. Only alert to person. Patient's oxygen increased to vapotherm as oxygen was between 85-88% on 6LNC. Patient would not tolerate a mask while asleep. Dr. Aviles notified and vapotherm ordered for higher flow rate. Lung sounds expiratory rhonchi and sputum culture sent.
[2022-11-18 22:16] LABS: POC Glucose,Bedside 172 (70-110)
--- NOTE | 2022-11-18 23:20 | PC.NURSE ---
pt complained of soa, noted o2 sats 80-85 on vapotherm 40//50; rt called and came to bedside, increased vapotherm to 40/60 and gave a breathing treatment, 02 sats 92 after increase.
[2022-11-19] VITALS (14 sets, daily range): BP systolic 107–142; BP diastolic 51–72; PULSE 51–77; RESP 18–20; TEMP 36.2–37.1; O2SAT 94–98; BMI 40.1
--- NOTE | 2022-11-19 04:19 | PC.NURSE ---
pt alert to self confused at times to place, pt with soa through the night and vapotherm increased to 40L/60% for 02 sats 75-80%, pt turn q2h, weston boot to ble, 2-3+ edema to ble, vss, 02 sats have been 92-95% on , no acute distress
--- NOTE | 2022-11-19 06:12 | PC.NURSE ---
o2 sats 98%, vapo decreased to 40L/55% per RT
[2022-11-19 06:47] LABS: POC Glucose,Bedside 109 (70-110)
[2022-11-19 07:26] LABS: Basophils % 0.4 % (0.1-2.0); Eosinophils # 0.1 K/mm3 (0.0-0.4); Eosinophils % 1.8 % (0.1-12.0); Hematocrit 35.8 % (42.0-52.0); Hemoglobin 11.3 g/dL (14.1-18.0); Lymphocytes % 15.2 % (10-50); Mean Corpuscular HGB Conc 31.5 g/dL (31.8-35.4); Mean Corpuscular Hemoglobin 30.2 pg (27.0-31.2); Mean Corpuscular Volume 95.7 fl (80-94); Mean Platelet Volume 9.5 fl (7.4-10.4); Monocytes # 0.5 K/mm3 (0.1-1.0); Monocytes % 6.8 % (1.7-9.3); Neutrophils % 75.8 % (37.0-80.0); Platelet Count 150 K/mm3 (142-424); Red Blood Count 3.75 M/mm3 (4.60-6.20); Red Cell Distribution Width 15.2 % (11.5-17.5); White Blood Count 6.6 K/mm3 (4.8-10.8)
[2022-11-19 07:28] LABS: Chloride 96 mmol/L (98-107); Potassium 3.1 mmoL/L (3.5-5.1); Sodium 137 mmol/L (136-145)
[2022-11-19 07:31] LABS: Anion Gap 5.1 mEq/L (5-15); Blood Urea Nitrogen 15 mg/dl (9-20); Calcium 7.6 mg/dl (8.4-10.2); Carbon Dioxide 39 mmol/L (22.0-30.0); Creatinine Clearance Estimated 57 mL/min (50-200); Estimated Glomerular Filt Rate 110 ml/min (>60); GFR (African American) 133 ML/MIN (>60); Glucose 105 mg/dl (74-100)
--- NOTE | 2022-11-19 09:22 | EXP.ACUTE.PN ---
Subjective *Date: 11/19/22 *Time: 09:22 Interval history: Patient is more alert today. Sitting on the side of the bed eating potato chips. Continues to complain of dyspnea and leg swelling. Medical Exam Vital signs and Labs for Last 24 Hours: Vital Signs Temp Pulse Pulse Resp BP Pulse Ox FiO2 11/19/22 08:37 98 50 11/19/22 07:23 98.5 F 72 20 142/60 H 95 50 11/19/22 06:10 55 L 11/19/22 06:10 61 11/19/22 06:10 98 60 11/19/22 04:00 97.7 F 64 18 107/52 L 94 L 11/19/22 00:00 97.1 F L 66 18 113/61 98 11/18/22 23:34 73 11/18/22 23:34 73 11/18/22 20:00 109 H 95 50 11/18/22 20:00 97.6 F 107 H 18 124/60 95 11/18/22 18:42 50 11/18/22 18:42 67 11/18/22 18:41 63 11/18/22 15:30 85 L 11/18/22 15:07 98.0 F 101 H 18 107/61 L 83 L 11/18/22 12:18 67 11/18/22 12:18 69 11/18/22 12:18 85 L 11/18/22 11:08 97.3 F L 69 20 110/64 94 L Intake and Output 11/18/22 11/19/22 11/19/22 19:59 03:59 11:59 Intake Total 560 / 1465 905 / 1465 Output Total 300 / 1200 900 / 1200 0 / 1200 Balance 260 / 265 -900 / 265 905 / 265 Intake: Intake, Oral Amount 120 / 480 360 / 480 Intake, Total IV Amount 440 / 985 545 / 985 0.9 % Sodium Chloride 1000ML 1, 440 / 985 545 / 985 000 ml @ 50 mls/hr IV .Q20H [facility] Rx#:[id number] Output: Output, Urine Amount 300 / 1200 900 / 1200 0 / 1200 Other: Number of Unmeasured Voids 1 1 Number of Bowel Movements 1 Weight 256 lb Patient Weight 11/19/22 11:59 Weight 256 lb Laboratory Results - last 24 hr 11/18/22 08:55: Troponin I 0.08 H 11/18/22 11:34: POC Glucose 111 H 11/18/22 16:10: POC Glucose 73 11/18/22 17:41: POC Glucose 136 H 11/18/22 22:05: POC Glucose 172 H 11/19/22 06:40: POC Glucose 109 11/19/22 06:56: WBC 6.6 D, RBC 3.75 L, Hgb 11.3 L, Hct 35.8 L, MCV 95.7 H, MCH 30.2, MCHC 31.5 L, RDW 15.2, Plt Count 150, MPV 9.5, Neut % (Auto) 75.8, Lymph % (Auto) 15.2, [place] % (Auto) 6.8, Eos % (Auto) 1.8, Baso % (Auto) 0.4, Neut # (Auto) 5.0, Lymph # (Auto) 1.0, [place] # (Auto) 0.5, Eos # (Auto) 0.1, Baso # (Auto) 0.0 11/19/22 06:56: Sodium 137, Potassium 3.1 L, Chloride 96 L, Carbon Dioxide 39 H, Anion Gap 5.1, BUN 15, Creatinine 0.70 D, Estimated Creat Clear 57, Estimated GFR 110, Est GFR ( Amer) 133 D, Glucose 105 H, Calcium 7.6 L I & O for Labs for Last 24 Hours: Intake & Output 11/16/22 11/17/22 11/18/22 11/19/22 11:59 11:59 11:59 11:59 Intake Total 1465 / 1465 Output Total 650 / 650 1200 / 1200 Balance -650 / -650 265 / 265 Weight 250 lb 6 oz 256 lb Microbiology Reports for the Last 24 Hours: Microbiology 11/18/22 12:48 Sputum - Expectorated Sputum Gram Stain - Final Comment:: Alert. Oriented x2. Lungs have good air movement, rhonchorous sounds bilaterally. Heart rate exam regular but muffled given his obesity. Extremities in Unna boot on his legs, upper extremities still puffy. Assessment and Plan *Assessment and plan (1) CHF exacerbation: Status: Acute Category: Medical Code(s): I50.9 - Heart failure, unspecified (2) Chronic respiratory failure with hypoxia and hypercapnia: Status: Acute Category: Medical Code(s): J96.11 - Chronic respiratory failure with hypoxia; J96.12 - Chronic respiratory failure with hypercapnia (3) Type 2 diabetes mellitus: Status: Chronic Qualifiers: Diabetes mellitus chcf insulin use: with chcf use Chronic kidney disease stage: stage 2 (mild) Category: Medical Code(s): E11.9 - Type 2 diabetes mellitus without complications Plan Patient has severe respiratory disease from a combination of CHF, chronic respiratory failure and his COPD. He has a very poor prognosis. We will initiate IV diuresis, oxygen therapy and CPAP if needed, however I think continui
[2022-11-19 11:30] LABS: POC Glucose,Bedside 170 (70-110)
[2022-11-19 16:57] LABS: POC Glucose,Bedside 207 (70-110)
[2022-11-19 20:27] LABS: POC Glucose,Bedside 283 (70-110)
[2022-11-20] VITALS (8 sets, daily range): BP systolic 114–131; BP diastolic 41–75; PULSE 60–122; RESP 18–20; TEMP 36.5–36.9; O2SAT 91–97; BMI 39.4
--- NOTE | 2022-11-20 03:58 | PC.NURSE ---
Called respiratory earlier in the night to give him a breathing treatment and he increased the patient's vapotherm from 30L to 50L. Pt got pain pills twice on my shift. No changes noted.
[2022-11-20 05:13] LABS: POC Glucose,Bedside 436 (70-110)
[2022-11-20 06:22] LABS: Basophils % 0.4 % (0.1-2.0); Eosinophils # 0.2 K/mm3 (0.0-0.4); Eosinophils % 2.3 % (0.1-12.0); Hematocrit 39.4 % (42.0-52.0); Hemoglobin 12.1 g/dL (14.1-18.0); Lymphocytes # 1.1 K/mm3 (0.7-4.5); Lymphocytes % 13.2 % (10-50); Mean Corpuscular HGB Conc 30.7 g/dL (31.8-35.4); Mean Corpuscular Hemoglobin 29.6 pg (27.0-31.2); Mean Corpuscular Volume 96.3 fl (80-94); Mean Platelet Volume 9.1 fl (7.4-10.4); Monocytes # 0.6 K/mm3 (0.1-1.0); Neutrophils # 6.6 K/mm3 (1.8-7.8); Neutrophils % 77.1 % (37.0-80.0); Platelet Count 189 K/mm3 (142-424); Red Blood Count 4.09 M/mm3 (4.60-6.20); Red Cell Distribution Width 15.1 % (11.5-17.5); White Blood Count 8.6 K/mm3 (4.8-10.8)
[2022-11-20 06:25] LABS: Chloride 93 mmol/L (98-107)
[2022-11-20 06:26] LABS: Potassium 3.3 mmoL/L (3.5-5.1); Sodium 137 mmol/L (136-145)
[2022-11-20 06:29] LABS: Blood Urea Nitrogen 11 mg/dl (9-20); Calcium 7.7 mg/dl (8.4-10.2); Creatinine Clearance Estimated 101 mL/min (50-200); Estimated Glomerular Filt Rate 110 ml/min (>60); GFR (African American) 133 ML/MIN (>60); Glucose 219 mg/dl (74-100)
[2022-11-20 06:38] LABS: Anion Gap 5.3 mEq/L (5-15); Carbon Dioxide 42 mmol/L (22.0-30.0)
--- NOTE | 2022-11-20 07:57 | EXP.ACUTE.PN ---
Subjective *Date: 11/20/22 *Time: 07:57 Interval history: Patient states that he feels a little better. Is up in a chair and eating, is much more alert, breathing more easily. Remains on Vapotherm. Medical Exam Vital signs and Labs for Last 24 Hours: Vital Signs Temp Pulse Pulse Resp BP Pulse Ox FiO2 11/20/22 07:47 98.4 F 70 123/68 94 L 11/20/22 05:56 71 11/20/22 05:56 68 11/20/22 05:56 97 40 11/20/22 04:00 98.3 F 60 18 123/64 95 11/20/22 00:00 98.1 F 66 18 114/41 L 96 11/19/22 22:45 71 11/19/22 22:44 68 11/19/22 20:00 96 11/19/22 20:00 97.6 F 77 18 116/52 L 98 11/19/22 18:11 40 11/19/22 18:11 63 11/19/22 18:10 59 L 11/19/22 15:05 98.0 F 66 18 112/51 L 95 40 11/19/22 11:32 94 L 45 11/19/22 11:27 51 L 11/19/22 11:27 51 L 11/19/22 11:27 94 L 45 11/19/22 11:09 98.7 F 69 18 141/72 H 94 L 45 11/19/22 08:37 98 50 Intake and Output 11/19/22 11/20/22 11/20/22 19:59 03:59 11:59 Intake Total 480 / 1070 350 / 1070 240 / 1070 Output Total 1630 / 2980 1350 / 2980 0 / 2980 Balance -1150 / -1910 -1000 / -1910 240 / -1910 Intake: Intake, Oral Amount 480 / 720 240 / 720 Intake, Total IV Amount 350 / 350 0.9 % Sodium Chloride 1000ML 1, 350 / 350 000 ml @ 50 mls/hr IV .Q20H [facility] Rx#:[id number] Output: Output, Urine Amount 1630 / 2980 1350 / 2980 0 / 2980 Other: Number of Unmeasured Voids 1 1 Number of Bowel Movements 1 1 Weight 251 lb 4 oz Patient Weight 11/20/22 11:59 Weight 251 lb 4 oz Laboratory Results - last 24 hr 11/19/22 10:59: POC Glucose 170 H 11/19/22 16:48: POC Glucose 207 H 11/19/22 20:17: POC Glucose 283 H 11/20/22 05:06: POC Glucose 436 H* 11/20/22 06:00: WBC 8.6 D, RBC 4.09 L, Hgb 12.1 L, Hct 39.4 L, MCV 96.3 H, MCH 29.6, MCHC 30.7 L, RDW 15.1, Plt Count 189 D, MPV 9.1, Neut % (Auto) 77.1, Lymph % (Auto) 13.2, [place] % (Auto) 7.0, Eos % (Auto) 2.3, Baso % (Auto) 0.4, Neut # (Auto) 6.6, Lymph # (Auto) 1.1, [place] # (Auto) 0.6, Eos # (Auto) 0.2, Baso # (Auto) 0.0 11/20/22 06:00: Sodium 137, Potassium 3.3 L, Chloride 93 L, Carbon Dioxide 42 H*, Anion Gap 5.3, BUN 11 D, Creatinine 0.70, Estimated Creat Clear 101, Estimated GFR 110, Est GFR ( Amer) 133, Glucose 219 H D, Calcium 7.7 L I & O for Labs for Last 24 Hours: Intake & Output 11/17/22 11/18/22 11/19/22 11/20/22 11:59 11:59 11:59 11:59 Intake Total 1465 / 1465 1070 / 1070 Output Total 650 / 650 1200 / 1200 2980 / 2980 Balance -650 / -650 265 / 265 -1910 / -1910 Weight 250 lb 6 oz 256 lb 251 lb 4 oz Microbiology Reports for the Last 24 Hours: Microbiology 11/18/22 12:48 Sputum - Expectorated Sputum Gram Stain - Final 11/18/22 12:48 Sputum - Expectorated Sputum Sputum Culture - Preliminary Comment:: Patient is alert. Better air excursion, scattered rhonchi. Heart rate regular. Legs in Unna boots. Neurologically improving. 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 He has a very poor prognosis. We will initiate IV diuresis, oxygen therapy and CPAP if needed, however I think continuing hos
--- NOTE | 2022-11-20 09:38 | EXP.PULM.CON ---
History of Present Illness History of present illness: Mr. Robbins a 77-year-old male history of COPD heart failure recently admitted to the hospital prolonged hospital course for heart failure exacerbation presented hospital again with worsening respiratory recent pulmonary was called for further evaluation [facility] Disclaimer: The information contained in this section may have been updated after the patient was seen, as this information can be updated by other users. Medical History (Updated 11/20/22 @ 10:43 by Ignacia Wiseman MD) Acute and chronic respiratory failure with hypoxia CHF (congestive heart failure) COPD (chronic obstructive pulmonary disease) COPD exacerbation Diabetes GERD (gastroesophageal reflux disease) Hyperlipidemia Hypertension Pleural effusion Pneumonia Family History No significant family history Social History (Updated 10/29/22 @ 19:40 by Eileen Lyn RN) Smoking Status: Former smoker alcohol intake: never substance use type: denies use current occupational status: retired Travel in the last 8 weeks: None household members: none housing: assisted living facility lives independently: Yes marital status: number of children: 1 diet: diabetic physical activity: none Review of Systems Constitutional Constitutional: Reports body ache(s) and Reports fatigue Eyes Eyes: Denies eye discharge, Denies dry eyes, Denies irritation and Denies itchy eyes ENT Ears, Nose, Mouth, and Throat: Denies epistaxis, Denies facial pain, Denies lip swelling and Denies throat swelling *Cardiovascular Cardiovascular: Reports dyspnea, Reports dyspnea on exertion, Reports leg edema, Reports orthopnea and Reports pedal edema *Respiratory Respiratory: Reports chest congestion, Reports cough, Reports dyspnea, Reports dyspnea on exertion, Denies excessive phlegm production and Denies wheezing *Gastrointestinal Gastrointestinal: Denies abdominal pain, Denies belching and Denies cramping *Musculoskeletal Musculoskeletal: Reports back pain, Reports joint swelling, Reports myalgias and Reports other (No small joint swelling or Pain) Psychiatric Psychiatric: Denies homicidal ideation and Denies suicidal ideation Endocrine Endocrine: Reports fatigue and Denies heat intolerance Hematologic/Lymphatic Hematologic/Lymphatic: Denies easy bleeding and Denies lymphadenopathy Allergic/Immunologic Allergic/Immunologic: Denies itchy eyes, Denies lip swelling, Denies throat swelling and Denies wheezing Pulmonology Exam Inpatient Vital signs and Labs for Last 24 Hours: Temp Pulse Resp BP Pulse Ox FiO2 98.4 F 70 18 123/68 97 40 04/24/23 07:47 11/20/22 07:47 11/20/22 04:00 11/20/22 07:47 11/20/22 08:37 11/20/22 08:10 Laboratory Results - last 24 hr 11/19/22 10:59: POC Glucose 170 H 11/19/22 16:48: POC Glucose 207 H 11/19/22 20:17: POC Glucose 283 H 11/20/22 05:06: POC Glucose 436 H* 11/20/22 06:00: WBC 8.6 D, RBC 4.09 L, Hgb 12.1 L, Hct 39.4 L, MCV 96.3 H, MCH 29.6, MCHC 30.7 L, RDW 15.1, Plt Count 189 D, MPV 9.1, Neut % (Auto) 77.1, Lymph % (Auto) 13.2, [place] % (Auto) 7.0, Eos % (Auto) 2.3, Baso % (Auto) 0.4, Neut # (Auto) 6.6, Lymph # (Auto) 1.1, [place] # (Auto) 0.6, Eos # (Auto) 0.2, Baso # (Auto) 0.0 11/20/22 06:00: Sodium 137, Potassium 3.3 L, Chloride 93 L, Carbon Dioxide 42 H*, Anion Gap 5.3, BUN 11 D, Creatinine 0.70, Estimated Creat Clear 101, Estimated GFR 110, Est GFR ( Amer) 133, Glucose 219 H D, Calcium 7.7 L I & O for Labs for Last 24 Hours: Intake & Output 11/17/22 11/18/22 11/19/22 11/20/22 23:59 23:59 23:59 23:59 Intake Total 560 / 560 1385 / 1385 590 / 590 Output Total 1500 / 1500 3080 / 3080 250 / 250 Balance -940 / -940 -1695 / -1695 340 / 340 Weight 250 lb 6 oz 256 lb 251 lb 4 oz Microbiology Reports for the Last 24 Hours: Microbiology 11/18/22 12:48 Sputum - Expectorated Sputum Delisa Bhatti
--- NOTE | 2022-11-20 09:53 | SW/DCPLANNER ---
Addendum entered by Becky Smith 11/20/22 14:43: Patient will discharge to [facility] today: I have updated Roderick. Original Note: This patient currently resides at [facility] level of care. I will continue to follow up with Roderick at [facility] regarding inpatient stay. Updated information has been faxed to Roderick chisholm/ [facility]. Patient may discharge later today or tomorrow.
--- NOTE | 2022-11-20 09:54 | HMH.OTEV ---
OT Inpatient Evaluation Rehab OT IP Evaluation Start: 11/20/22 07:41 Freq: ONCE Status: Active Protocol: Document 11/20/22 09:45 [facility] (Rec: 11/20/22 09:54 [facility] [id number]) Rehab OT IP Assessment Subjective History Pt oriented x 3 on arrival. Pt agreeable to engage in therapy evaluation. Pt was admitted on 11/18/22 due to cough, congestion, and COPD exacerbation. Pt normally resides at [facility], but was at [facility] for skilled rehab due to recent hospitalization. Prior to becoming ill, pt is normally independent with all ADLs. He does use a power chair, but is able to complete short functional transfers from surface to surface. Recently pt has dependent upon staff at [facility] to complete all IADLs. Pt has a past medical history of: CHF (congestive heart failure) COPD (chronic obstructive pulmonary disease) COPD exacerbation Diabetes GERD (gastroesophageal reflux disease) Hyperlipidemia Hypertension Pleural effusion Pneumonia Subjective I just feel short of breath. Objective Patient Orientation Person,Place,Birthday Upper Extremity Gross ROM WFL Transfer Training Sit/Stand Transfer Assist Level Contact Guard/Hand Hold Chair Transfer Ability Contact Guard/Hand Hold Chair Transfer Technique Sit to/from Ambulatory Rehab OT IP prob,goals,plan Problems Date of Evaluation: 11/20/22 OT IP Problems Bed Mobility,Transfers,Balance ,Self care,Safety Rehab Potential Rehab Potential Good Equipment Needs Assistive Devices Rolling / Wheeled Walker Plan OT intervention Plan Bed Mobility,Transfers,Balance ,Self care,Safety,Therapeutic Exe
[2022-11-20 11:53] LABS: POC Glucose,Bedside 149 (70-110)
--- NOTE | 2022-11-20 12:20 | HMH.PTEV ---
Physical Therapy Evaluation Rehab PT IP Evaluation Start: 11/20/22 07:41 Freq: ONCE Status: Active Protocol: Document 11/20/22 12:10 CHUCKY (Rec: 11/20/22 12:20 CHUCKY [id number]) Subjective/History History History Pt is a 77 year old male who normally resides at [facility] and has received hospice care there for many months because of his CHF and COPD issues. Over the past few weeks, pt has had increasing worsening of his hypoxia, has been intermittently confused and has had worsening edema in the face. Pt was treated with O2 and IM diuresis at the prison but overnight on 2022 it continued to get worse so pt was brought to ED by EMS. PMH: CHF (congestive heart failure) COPD (chronic obstructive pulmonary disease) COPD exacerbation Diabetes GERD (gastroesophageal reflux disease) Hyperlipidemia Hypertension Pleural effusion Pneumonia Subjective Subjective Pt presents seated in bedside chair, pleasant and agreeable to therapy evaluation. Pt reports I hurt all over . Pt reports he lives at [facility], states he has not been walking much and recently purchased a motorized w/c for mobility use. Rehab PT IP Eval Objective Appearance Patient Behavior Appropriate Patient Orientation Person,Place,Birthday Difficulty following instructions none Speech Pattern Clear,Appropriate Ambulation Patient Able to Ambulate Yes Ambulation Observation IP General Gait Pattern Observation Wide Based Gait Ambulation Distance (feet) 20 Ambulation Assistive Device None Ambulation Ability Minimal x 1 (25% assist) Balance Ability to Arise Able, uses arms to help Sitting Balance
--- NOTE | 2022-11-20 13:28 | EXP.DC.SUM ---
General Admission date:: 11/18/22 Discharge date: 11/20/22 HPI HPI HPI: 77-year-old male who is a primary patient of Dr. Knapp in [place], [place], who normally resides at the [facility] and has received hospice care there for many months because of his CHF and COPD issues. He was admitted to [facility] a couple of months ago as a transfer to the cardiology service, and after that was transferred back to the [facility] for PT, OT and skilled care as well as aggressive diuresis. He has been on my service there. While he has been at the [facility] hospice it is discontinued because of his ongoing therapy needs. Over the past couple of weeks he has had increasing worsening of his hypoxia and has been intermittently confused and has had worsening edema in the face of aggressive p.o. diuresis and oxygen therapy. Several days ago I advised that he would probably need to be readmitted to the hospital the patient refused. We treated him with O2, IM diuresis at the prison and he improved however through the night last night it became worse again at this time agreed to come to the hospital and was transferred to the [facility] emergency department by EMS. Admitted through the ER. Please see ER notes for details. Patient is awake this morning. Able to answer questions but nurses report that he quickly falls asleep and when he sits up on the side of the bed falls asleep and has a high fall risk. He denies pain, reports that his breathing is somewhat congested, but otherwise has no complaints. Hospital Course Hospital Course Hospital Course: Patient was admitted to second floor. When I evaluated him I felt that he was in CHF exacerbation. Administered intravenous Bumex and he had a good response to the increased dose of loop diuretic. After diuresis was able be able bit more active and was up and around in his chair and a little bit better. Mental status also improved. He was continued on diuretic dose and pulmonary toilet with albuterol nebs. Pulmonary saw him today in consultation given his chronic disease and felt this was mostly from CHF exacerbation and not recommend antibiotics or steroids. Given his improvement and ability to go back to skilled care facility he will be transferred back to the [facility] today. Recommend ongoing PT and OT. Recommended continuing oxygen therapy with a goal O2 saturation of over 86%. He may be a candidate for BiPAP at night if heart failure continues to worsen-which is very likely. We will add Aldactone to his regimen of Bumex and check labs in 4 days. Please order BMP and CBC for 4 days from now. We will also add new heart failure medication, Verquvo -to try to prevent readmission. 1 tablet daily for 14 days then reevaluate Follow-up on our regular prison rounds at the [facility]. Exam Data for Last 24 hours Vital signs and Labs for Last 24 Hours: Temp Pulse Resp BP Pulse Ox FiO2 97.7 F 119 H 18 114/70 91 L 40 11/20/22 11:35 11/20/22 13:22 11/20/22 11:35 11/20/22 11:35 11/20/22 11:35 11/20/22 08:10 Laboratory Results - last 24 hr 11/19/22 16:48: POC Glucose 207 H 11/19/22 20:17: POC Glucose 283 H 11/20/22 05:06: POC Glucose 436 H* 11/20/22 06:00: WBC 8.6 D, RBC 4.09 L, Hgb 12.1 L, Hct 39.4 L, MCV 96.3 H, MCH 29.6, MCHC 30.7 L, RDW 15.1, Plt Count 189 D, MPV 9.1, Neut % (Auto) 77.1, Lymph % (Auto) 13.2, Gillespie % (Auto) 7.0, Eos % (Auto) 2.3, Baso % (Auto) 0.4, Neut # (Auto) 6.6, Lymph # (Auto) 1.1, Gillespie # (Auto) 0.6, Eos # (Auto) 0.2, Baso # (Auto) 0.0 11/20/22 06:00: Sodium 137, Potassium 3.3 L, Chloride 93 L, Carbon Dioxide 42 H*, Anion Gap 5.3, BUN 11 D, Creatinine 0.70, Estimated Creat Clear 101, Estimated GFR 110, Est GFR ( Amer) 133, Glucose 219 H D, Calcium 7.7 L 11/20/22 11:40: POC Glucose 149 H I & O for Last 24 hours: Intake & Output
--- NOTE | 2022-11-20 15:42 | PC.NURSE ---
Dr. Bravo notified of patient's increased heart rate. Per Dr. Bravo patient is still okay for discharge
--- NOTE | 2022-11-21 13:00 | CARE MANAGER ---
Contacted Roderick at [facility] who states patient is doing well. GILBERTO Montgomery
== END 2022-11-20 16:14 ==
LOC: ER 02:40 → 2ND 05:59
PROVIDERS: Admitting Provider Family Medicine; Emergency Provider Emergency Medicine; PCP Internal Medicine Adolescent Medicine; Visit Provider Internal Medicine Adolescent Medicine
DX: J96.22 Acute and chronic respiratory failure with hypercapnia (principal); J96.21 Acute and chronic respiratory failure with hypoxia; Z79.01 Long term (current) use of anticoagulants; Z79.899 Other long term (current) drug therapy; E11.9 Type 2 diabetes mellitus without complications; J44.1 Chronic obstructive pulmonary disease with (acute) exacerbation; I11.0 Hypertensive heart disease with heart failure; I50.9 Heart failure, unspecified; I48.91 Unspecified atrial fibrillation; Z87.891 Personal history of nicotine dependence; Z79.84 Long term (current) use of oral hypoglycemic drugs; Z20.822 Contact with and (suspected) exposure to COVID-19
CPT/HCPCS: G0378; 36415; 71045; 80048; 80053; 81001; 82803; 82962; 83880; 84145; 84484; 85025; 85651; 86140; 87040; 87070; 87186; 87205; 93005; 94640; 94760; 97110; 97162; 97166; 99285; C9803; U0003; U0005

== ENCOUNTER 2022-12-08 01:31 | Observation (INO) | payer MEDICARE, SELFPAY ==
[2022-12-08] VITALS (22 sets, daily range): BP systolic 87–128; BP diastolic 54–80; PULSE 54–121; RESP 14–24; TEMP 36.1–36.9; O2SAT 91–98; BMI 41.2; BMI 42.8
--- NOTE | 2022-12-08 01:42 | ECG_ITS ---
APPROVED REPORT Exam: Resting ECG HR:115 bpm ECG Measurements Heart Rate 115 AXES QRSd 97 QRS 111 QT 332 T 63 QTc 400 Conclusion ATRIAL FLUTTER/TACHYCARDIA WITH RAPID VENTRICULAR RESPONSE WITH ABERRANT CONDUCTION OR VENTRICULAR PREMATURE COMPLEXES INCOMPLETE RIGHT BUNDLE BRANCH BLOCK [90+ ms QRS DURATION, TERMINAL R IN V1/V2, 40+ ms S IN I/aVL/V4/V5/V6] POSSIBLE RIGHT VENTRICULAR HYPERTROPHY [SOME/ALL OF: PROMINENT R IN V1, LATE TRANSITION, RAD, ROSI, SSS] MODERATE ST DEPRESSION [0.05+ mV ST DEPRESSION] ABNORMAL ECG UNCONFIRMED REPORT Electronically signed by : Markus Bravo MD 12/08/2022 15:00:49
--- NOTE | 2022-12-08 01:51 | XR_ITS ---
PROCEDURE INFORMATION: Exam: XR Chest Exam date and time: 12/08/2022 2:22 AM Age: 77 years old Clinical indication: Shortness of breath; Additional info: SOA TECHNIQUE: Imaging protocol: Radiologic exam of the chest. Views: 1 view. COMPARISON: CR XR CHEST PORTABLE 11/18/2022 3:29 AM FINDINGS: Lungs: Increased interstitial markings. Pleural spaces: Unremarkable. No pleural effusion. No pneumothorax. Heart/Mediastinum: Cardiomegaly. Bones/joints: Unremarkable. IMPRESSION: Stable cardiomegaly and increased interstitial markings.
--- NOTE | 2022-12-08 01:52 | CT_ITS ---
PROCEDURE INFORMATION: Exam: CT Head Without Contrast Exam date and time: 12/08/2022 2:42 AM Age: 77 years old Clinical indication: Altered mental status/memory loss; Additional info: AMS TECHNIQUE: Imaging protocol: Computed tomography of the head without contrast. Radiation optimization: All CT scans at this facility use at least one of these dose optimization techniques: automated exposure control; mA and/or kV adjustment per patient size (includes targeted exams where dose is matched to clinical indication); or iterative reconstruction. REPORTING DATA: Count of CT and Cardiac NM exams in prior 12 months: This patient has received [address] and 0 known cardiac nuclear medicine studies in the 12 months prior to the current study. COMPARISON: US CA CAROTID DUPLEX BI 05/03/2022 11:25 AM FINDINGS: Brain: There is diffuse prominence of the cerebral sulci, cisterns, and ventricles consistent with atrophy. No intra or extra-axial fluid collections are noted. No mass or mass effect is seen. Periventricular white matter hypoattenuation is seen consistent with small vessel chronic ischemic changes. Cerebral ventricles: No ventriculomegaly. Paranasal sinuses: Visualized sinuses are unremarkable. No fluid levels. Mastoid air cells: Visualized mastoid air cells are well aerated. Bones/joints: Unremarkable. No acute fracture. Soft tissues: Unremarkable. IMPRESSION: No acute process noted.
[2022-12-08 02:04] LABS: ABG Base Excess 4.9 mmol/L (-2.4-2.3); ABG HCO3 29.4 mmhg (22.0-26.0); ABG Oxygen Saturation 91 % (90-100); ABG PCO2 46.3 mmhg (35.0-45.0); ABG PH 7.42 mmol/L (7.35-7.45); ABG PO2 66.9 mmhg (80-100); ABG TCO2 30.8 mmhg (23-27)
[2022-12-08 02:05] LABS: Allen's Test Non Applicable; Oxygen 5LPM NC %; Source Left Brachial
[2022-12-08 02:27] LABS: Basophils % 0.3 % (0.1-2.0); Eosinophils % 0.1 % (0.1-12.0); Hematocrit 38.3 % (42.0-52.0); Hemoglobin 12.3 g/dL (14.1-18.0); Lymphocytes % 6.6 % (10-50); Mean Corpuscular HGB Conc 32.1 g/dL (31.8-35.4); Mean Corpuscular Hemoglobin 29.4 pg (27.0-31.2); Mean Corpuscular Volume 91.6 fl (80-94); Mean Platelet Volume 9.4 fl (7.4-10.4); Monocytes # 1.1 K/mm3 (0.1-1.0); Neutrophils # 13.3 K/mm3 (1.8-7.8); Platelet Count 220 K/mm3 (142-424); Red Blood Count 4.18 M/mm3 (4.60-6.20); Red Cell Distribution Width 14.7 % (11.5-17.5); White Blood Count 15.4 K/mm3 (4.8-10.8)
[2022-12-08 02:30] LABS: MANUAL DIFFERENTIAL MANUAL DIFFERENTIAL (MANUAL DIFF)
[2022-12-08 02:35] LABS: Alanine Aminotransferase 39 U/L (12-78); Albumin/Globulin Ratio 0.8 (1.1-1.8); Alkaline Phosphatase 123 U/L (38-126); Anion Gap 16.3 mEq/L (5-15); Aspartate Amino Transferase 55 U/L (17-59); Blood Urea Nitrogen 25 mg/dl (9-20); Calcium 7.8 mg/dl (8.4-10.2); Carbon Dioxide 35 mmol/L (22.0-30.0); Chloride 85 mmol/L (98-107); Creatinine Clearance Estimated 39 mL/min (50-200); Estimated Glomerular Filt Rate 49 ml/min (>60); GFR (African American) 60 ML/MIN (>60); Globulin 3.6 g/dL (1.3-3.2); Glucose 176 mg/dl (74-100); Potassium 4.3 mmoL/L (3.5-5.1); Sodium 132 mmol/L (136-145); Total Protein,Serum 6.6 g/dl (6.3-8.2)
[2022-12-08 02:40] LABS: C-Reactive Protein 36.1 mg/L (0-4)
[2022-12-08 02:47] LABS: NT Pro Brain Natriuretic Pep. 8040 pg/mL (0-450); Troponin I < 0.01 ng/ml (0.00-0.034)
[2022-12-08 02:52] LABS: Procalcitonin 0.197 ng/mL (0.0-2.0)
--- NOTE | 2022-12-08 02:54 | PC.NURSE ---
Patients nose was noted to be bleeding during rounds. Patient was scratching the inside of his nose. When asked if his nose was dry, patient stated that it was. I called respiratory therapy to confirm that patient was on the correct type of nasal canula to accommodate 5 liters. RT agreed that the nasal cannula that the patient was currently on was fine but we placed the patient on the bubbler or humification for the oxygen.
[2022-12-08 03:05] LABS: Erythrocyte Sedimentation Rate 50 mm/hr (0-20)
[2022-12-08 03:08] LABS: Lymphocytes % 8 % (10-50); Neutrophils % 92 % (42-76); Platelet Estimate Normal; RBC Morphology Normal; Total Cells Counted 100
[2022-12-08 04:11] LABS: Coronavirus 19, PCR Not Detected (NotDetected); Influenza A, PCR Not Detected (NotDetected); Influenza B, PCR Not Detected (NotDetected)
[2022-12-08 04:17] LABS: Microscopic, Urine URINE MICROSCOPIC (MICROSCOPIC)
[2022-12-08 04:19] LABS: Lactic Acid 1.7 mmol/L (0.7-2.1)
[2022-12-08 04:19] LABS: Appearance,Urine CLEAR (Clear); Bilirubin,Urine Negative (Negative); Blood, Urine Negative (Negative); Color,Urine YELLOW (Yellow); Glucose,Urine (UA) Negative (Negative); Ketones,Urine Negative (Negative); Leukocyte Esterase,Urine TRACE (Negative); Nitrate,Urine Negative (Negative); PH,Urine 5.5 (5.0-8.5); Protein,Urine TRACE (Negative); Specific Gravity, Urine 1.025 (1.005-1.030); Urobilinogen,Urine 0.2 EU/dl (0.2)
[2022-12-08 04:38] LABS: Bacteria,Urine 1+ /lpf; Mucus,Urine 1+ /lpf; RBC,Urine Occasional #/hpf (0-3)
--- NOTE | 2022-12-08 04:49 | HMH.EDAMS ---
Discharge Plan Disposition Patient Disposition: Admitted As Inpatient Chief Complaint: Altered Mental Status Clinical Impressions Clinical Impression: Acute and chronic respiratory failure with hypoxia, Type 2 diabetes mellitus, Congestive heart failure, Delirium due to general medical condition, ANGELES (acute kidney injury), A-fib Discharge ED Provider: Froilan (ED)Siddhartha Altered Mental Status HPI General Chief Complaint: Altered Mental Status Stated Complaint: altered mental Time Seen by Provider: 12/08/22 02:00 Mode of Arrival: EMS Source of Information: Patient, EMS and Medical Record Limitations: Altered Mental Status Description of Symptoms (Recalled from ER Triage Doc. by RN): Per EMS, patient has had a low blood pressure, increased heart rate, agitation and hallucinations while en route. Patient was placed on a nonrebreather while en route. History of Present Illness HPI narrative: pt with reported altered mental status at [facility] with dec o2 sat - pt has sig hx of copd and chronic o2 and chf and a fib w/o fever or trauma - pt is dnr - pt unable to give specific hx MD complaint: altered mental status Onset (ago): hour(s) Timing confirmed by: other ([facility]) Severity: moderate Consistency of symptoms: waxing and waning Context: history of similar presentation, diabetes, COPD and other (chf) Treatments prior to arrival: oxygen Related Data Home Medications Medication Instructions Recorded Confirmed alfuzosin 10 mg tablet,extended 10 mg PO DAILY Prostate 05/02/22 11/18/22 release 24 hr aspirin 81 mg tablet 81 mg PO DAILY Heart health 05/02/22 11/18/22 glipizide 5 mg tablet, extended 5 mg PO AM Diabetes 05/02/22 11/18/22 release 24 hr bumetanide 2 mg tablet 2 mg PO BID Fluid 10/30/22 11/18/22 meclizine 25 mg tablet 25 mg PO Q8HP PRN Dizziness 10/30/22 11/18/22 metoprolol tartrate 50 mg tablet 50 mg PO BID High blood pressure 10/30/22 11/18/22 paroxetine HCl 20 mg tablet 20 mg PO AM Depression 10/30/22 11/18/22 rivaroxaban 20 mg tablet (Xarelto) 20 mg PO DAILY Blood thinner, CAD 10/30/22 11/18/22 sennosides 15 mg chewable tablet 15 mg PO DAILYP PRN Constipation 10/30/22 11/18/22 sodium chloride 0.65 % nasal spray 1 spray intranasal Q2H PRN Nasal 10/30/22 11/18/22 aerosol (Saline Nasal Mist) congestion/dryness atorvastatin 10 mg tablet 10 mg PO HS High cholesterol 11/18/22 11/18/22 fluticasone fur. 100 mcg-umeclid 1 puff inhalation DAILY 11/18/22 11/18/22 62.5 mcg-vilant 25 mcg copd/shortness of air inhalat.powder (Trelegy Ellipta) omeprazole 20 mg capsule,delayed 20 mg PO BID Acid reflux 11/18/22 11/18/22 release Previous Rx's Medication Instructions Recorded oxycodone 10 mg tablet 10 mg PO Q6H PRN Pain #12 tabs 11/06/22 polyethylene glycol 3350 17 gram 17 g PO BID PRN constipation #30 ea 11/06/22 oral powder packet (Miralax) spironolactone 25 mg tablet 25 mg PO BID #60 tabs 11/20/22 (Aldactone) vericiguat 2.5 mg tablet (Verquvo) 2.5 mg PO DAILY 14 days #14 tabs 11/20/22 Allergies Allergy/AdvReac Type Severity Reaction Status Date / Time Sulfa (Sulfonamide Allergy Verified 10/29/22 11:18 Antibiotics) [facility] Disclaimer: The information contained in this section may have been updated after the patient was seen, as this information can be updated by other users. Medical History (Updated 12/08/22 @ 05:36 by Siddhartha Mcgovern (EDGAR)MD) Acute and chronic respiratory failure with hypoxia CHF (congestive heart failure) Chronic respiratory failure with hypoxia and hypercapnia COPD (chronic obstructive pulmonary disease) COPD exacerbation Diabetes GERD (gastroesophageal reflux disease) Hyperlipidemia Hypertension Pleural effusion Pneumonia Family History No significant family history Social History (Updated 10/29/22 @ 19:40 by Eileen Lyn RN) Smoking Status: Never smoker alcohol intake: never substance use type: denies
[2022-12-08 04:58] LABS: Acetone, Serum (Rapid) None Detected (None Detect)
[2022-12-08 05:13] LABS: Troponin I < 0.01 ng/ml (0.00-0.034)
--- NOTE | 2022-12-08 05:58 | PC.NURSE ---
Pt arrived to floor via stretcher @ [id number]
--- NOTE | 2022-12-08 07:04 | ECG_ITS ---
APPROVED REPORT Exam: Resting ECG HR:101 bpm ECG Measurements Heart Rate 101 AXES ID 283 P 46 QRSd 86 QRS 119 QT 362 T 55 QTc 420 Conclusion SINUS TACHYCARDIA WITH FIRST DEGREE AV BLOCK POSSIBLE RIGHT VENTRICULAR HYPERTROPHY [SOME/ALL OF: PROMINENT R IN V1, LATE TRANSITION, RAD, ROSI, SSS] MODERATE ST DEPRESSION [0.05+ mV ST DEPRESSION] ABNORMAL ECG UNCONFIRMED REPORT Electronically signed by : Markus Bravo MD 12/08/2022 15:00:10
--- NOTE | 2022-12-08 07:19 | EXP.HP ---
History of Present Illness *Admission Date: 12/08/22 *Reason for visit:: Chief complaint: Altered mental status & dyspnea *History of present illness: This is a 77-year-old male who is brought to [facility] emergency department by his facility [facility] for altered mental status and dyspnea. 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 History is limited from the patient secondary to his somnolence so the history is acquired from the medical record (recent [facility] admission) and a phone call to his facility. History is also garnished from the ED evaluation after discussing the case with the ED provider. In the ED he is tachycardic and requiring increased oxygen support to maintain appropriate oxygen saturations. His labs identify a leukocytosis with stable hemoglobin. His ABG identifies hypercapnia and hypoxemia. His electrolyte and renal function identify acute kidney injury with a baseline creatinine of 0.7 and ED evaluation creatinine 1.4. His BNP is elevated and his troponin is negative. His chest imaging is consistent with cardiomegaly and a recent CT of the chest October 2022 identifies centrilobular emphysema. There is concern with aspiration pneumonitis. [facility] Medical History (Updated 12/08/22 @ 07:34 by Edi Ennis MD) (HFpEF) heart failure with preserved ejection fraction A-fib BMI 40.0-44.9, adult BPH (benign prostatic hyperplasia) Chronic anticoagulation Chronic pain syndrome Chronic respiratory failure with hypoxia and hypercapnia Chronic venous stasis dermatitis Chronic, continuous use of opioids COPD (chronic obstructive pulmonary disease) Diabetes GERD (gastroesophageal reflux disease) Hyperlipidemia Hypertension Obesity hypoventilation syndrome Pleural effusion Surgical History (Updated 12/08/22 @ 07:34 by Edi Ennis MD) History of abdominal surgery Family History Other No significant family history Social History (Updated 12/08/22 @ 07:35 by Edi Ennis MD) Smoking Status: Former smoker years smoked: 35 smoking status stop date: 2007 alcohol intake: never substance use type: denies use current occupational status: retired Travel in the last 8 weeks: None household members: none housing: assisted living facility lives independently: Yes marital status: number of children: 1 diet: diabetic physical activity: none Review of Systems Review of Systems Review of systems:: unable to obtain Meds Home Medications and Allergies Home Medications Medication Instructions Recorded Confirmed Type alfuzosin 10 mg tablet,extended 10 mg PO DAILY Prostate 05/02/22 11/18/22 History release 24 hr aspirin 81 mg tablet 81 mg PO DAILY Heart health 05/02/22 11/18/22 History glipizide 5 mg tablet, extended 5 mg PO AM Diabetes 05/02/22 11/18/22 History release 24 hr bumetanide 2 mg tablet 2 mg PO BID Fluid 10/30/22 11/18/22 History meclizine 25 mg tablet 25 mg PO Q8HP PRN Dizziness 10/30/22 11/18/22 History metoprolol tartrate 50 mg tablet 50 mg PO BID High blood pressure 10/30/22 11/18/22 History paroxetine HCl 20 mg tablet 20 mg PO AM Depression 10/30/22 11/18/22 History rivaroxaban 20 mg tablet (Xarelto) 20 mg PO DAILY Blood thinner, CAD 10/30/22 11/18/22 History sennosides 15 mg chewable tablet 15 mg PO DAILYP PRN Constipation 10/30/22 11/18/22 History sodium chloride 0.65 % nasal spray 1 spray intranasal Q2H PRN Nasal 10/30/22 11/18/22 History aerosol (Saline Nasal Mist) congestion/dryness oxycodone 10 m
--- NOTE | 2022-12-08 07:40 | PC.NURSE ---
Pt admission assessments limited due to pt's altered mental status.
--- NOTE | 2022-12-08 09:02 | SW/DCPLANNER ---
Addendum entered by Becky Smith 12/08/22 15:40: Amee chisholm/ Mame did speak with patient's family onsite. The plan for this patient is to return to [facility] tomorrow Medicaid pending under Hospice Care. I have updated MD. Addendum entered by Becky Smith 12/08/22 11:06: Patient's daughter is interested in patient returning to [facility] under Hospice Care. I have faxed patient information to Amee Vilchis and I am waiting for a call back from [facility]. Patient's daughter stated that she would be here in about two hours to see patient. Original Note: Patient currently resides at [facility] level of care. Updated patient information has been faxed to [facility]. Discharge date is unknown at this time.
--- NOTE | 2022-12-08 09:25 | P.CONPHA_ITS ---
Pharmacy Intervention Comments: MEDICATION RECONCILIATION COMPLETED ON PATIENT USING MAR FROM ASSISTED. -PRESTON FUNEZ, BRIAND
--- NOTE | 2022-12-08 09:25 | HMH.PHAINT1 ---
Pharmacy Intervention Comments: MEDICATION RECONCILIATION COMPLETED ON PATIENT USING MAR FROM ALF. -PRESTON FUNEZ, BRIAND
[2022-12-08 09:33] LABS: Ammonia < 9 umol/L (9-30)
[2022-12-08 09:46] LABS: Troponin I < 0.01 ng/ml (0.00-0.034)
--- NOTE | 2022-12-08 11:27 | PC.NURSE ---
late entry: daughter john called and stated pt is to be a DNR, chelsey verified phone caleed. pt has been combative this am, pulled iv out. new iv placed in rt upper arm. pt now resting, darius wanted bipap placed on pt, RT notified.
[2022-12-08 12:13] LABS: POC Glucose,Bedside 150 (70-110)
--- NOTE | 2022-12-08 13:40 | DIET.NUTRFU ---
Patient is have increased difficulty with oral intake. Most medications changed to IV. He has been lethargic and combative when trying to give oral intake. Currently on diabetic diet, trays have been held. [employer] TECHNICIAN tried to completed a bedside swallow eval today and patient was uncooperative being combative and lethargic. Patient has been under hospice care in the past and then switched over the rehab care at [facility], provider spoke to family about patients poor prognosis and interested in hospice care. Will continue to follow cognition status and ability to swallow. Currently unable to meet nutritional needs. Meds and labs reviewed, Na 132L, diuretic tx in place. BS elevated at 176H, insulin in place.
[2022-12-08 17:24] LABS: POC Glucose,Bedside 120 (70-110)
--- NOTE | 2022-12-08 18:28 | PC.NURSE ---
PT MORE ALERT NOW COMPARED TO AM. PT STATES HE DOES NOT REMEMBER ANYTHING FROM THIS MORNING OR WHY HE IS ADMITTED. EDUCATED PT ON ADMISSION AND PLAN OF CARE AT THIS TIME. PT REQUESTING SOMETHING TO DRINK, TOLERATING THIN LIQUIDS WELL AT THE MOMENT. REF THICKENED LIQUIDS. PT STATES HES HURTING ALL OVER REQUESTING HIS DAILY PAIN MEDS, REF TYLENOL. PTS HOME PAIN MEDS NOT ORDERED, NOTIFIED MD. PER MICKY ORDER MORPHINE 2MG IV ONCE NOW. CB WITHIN REACH.
[2022-12-08 21:50] LABS: POC Glucose,Bedside 231 (70-110)
[2022-12-09 02:03] VITALS: RESP 16; RESP 34
[2022-12-09 04:00] VITALS: BP 133/69; PULSE 109; RESP 22; TEMP 36.6; O2SAT 94; BMI 42.5
--- NOTE | 2022-12-09 05:03 | PC.NURSE ---
NO ACUTE CNAHES THIS SHIFT. PT HAS RESTED WELL. LUNG SOUNDS ARE VERY DIMINISHED BILATERALLY. VSS. PT IS MORE ALERT THIS SHIFT AND HAS BEEN ABLE TO TAKE PO MEDS. HAS C/O PAIN X2 THIS SHIFT AND HAS BEEN MEDICATED PER MAR FOR PAIN. CALL OLIVERA WITHIN REACH.
[2022-12-09 05:50] VITALS: PULSE 105; RESP 16; RESP 18; O2SAT 92
[2022-12-09 06:12] LABS: POC Glucose,Bedside 211 (70-110)
[2022-12-09 07:40] LABS: Eosinophils % 0.1 % (0.1-12.0); Hematocrit 37.5 % (42.0-52.0); Hemoglobin 11.8 g/dL (14.1-18.0); Lymphocytes # 0.6 K/mm3 (0.7-4.5); Lymphocytes % 7.3 % (10-50); Mean Corpuscular HGB Conc 31.5 g/dL (31.8-35.4); Mean Platelet Volume 9.3 fl (7.4-10.4); Monocytes # 0.3 K/mm3 (0.1-1.0); Monocytes % 3.8 % (1.7-9.3); Neutrophils # 6.9 K/mm3 (1.8-7.8); Neutrophils % 88.7 % (37.0-80.0); Platelet Count 194 K/mm3 (142-424); Red Blood Count 4.07 M/mm3 (4.60-6.20); Red Cell Distribution Width 14.7 % (11.5-17.5); White Blood Count 7.7 K/mm3 (4.8-10.8)
[2022-12-09 07:44] LABS: Blood Urea Nitrogen 26 mg/dl (9-20); Calcium 7.9 mg/dl (8.4-10.2); Carbon Dioxide 35 mmol/L (22.0-30.0); Creatinine Clearance Estimated 53 mL/min (50-200); Estimated Glomerular Filt Rate 73 ml/min (>60); GFR (African American) 88 ML/MIN (>60); Glucose 215 mg/dl (74-100); Magnesium 2.3 mg/dl (1.6-2.3); Potassium 4.2 mmoL/L (3.5-5.1); Sodium 137 mmol/L (136-145)
[2022-12-09 07:46] VITALS: BP 131/70; PULSE 106; RESP 21; TEMP 36.7; O2SAT 92
[2022-12-09 08:05] LABS: MANUAL DIFFERENTIAL MANUAL DIFFERENTIAL (MANUAL DIFF)
[2022-12-09 08:38] LABS: Anion Gap 14.2 mEq/L (5-15); Chloride 92 mmol/L (98-107)
--- NOTE | 2022-12-09 09:03 | EXP.DC.SUM ---
General Admission date:: 12/08/22 Discharge date: 12/09/22 HPI HPI HPI: This is a 77-year-old male who is brought to [facility] emergency department by his facility [facility] for altered mental status and dyspnea. 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 History is limited from the patient secondary to his somnolence so the history is acquired from the medical record (recent [facility] admission) and a phone call to his facility. History is also garnished from the ED evaluation after discussing the case with the ED provider. In the ED he is tachycardic and requiring increased oxygen support to maintain appropriate oxygen saturations. His labs identify a leukocytosis with stable hemoglobin. His ABG identifies hypercapnia and hypoxemia. His electrolyte and renal function identify acute kidney injury with a baseline creatinine of 0.7 and ED evaluation creatinine 1.4. His BNP is elevated and his troponin is negative. His chest imaging is consistent with cardiomegaly and a recent CT of the chest October 2022 identifies centrilobular emphysema. There is concern with aspiration pneumonitis. Hospital Course Hospital Course Hospital Course: The patient was admitted to the medical unit with continuous pulse oximetry monitoring and telemetry monitoring. Respiratory distress responded to NIPPV therapy. Nursing staff reported improved oxygen saturations and blood pressures with ongoing tachycardia. His laboratory studies and inflammatory markers were trended and identified improved creatinine with discharge creatinine 1.0 which is his baseline. His hematology panel identified improved leukocytoses with stable hemoglobin and platelet count. His ammonia level on admission was normal. Speech therapy was consulted for concerns of repetitive aspiration pneumonitis. The patient reported diffuse chronic pain and requested ongoing narcotic therapy. Hospice was re-consulted with the assistance of case management. His healthcare surrogate and POA requested that the patient be transition back to hospice. Hospice met with the patient and family and his care will be transition to hospice. Hospitalist medicine will provide hospice comfort care medication needs through the weekend until hospice medical superintendent can evaluate the patient. He will be discharged with ongoing oxygen supplementation, transdermal opioid therapy with oral opioid therapy as needed and oral benzodiazepine therapy as needed. I spent 35 minutes in [id number] time with the patient, hospice nurse practitioner, case management and nursing staff concerning the discharge process. We discussed the admitting diagnoses and hospital course. We discussed identified desire to transition back to hospice. We reviewed inpatient studies and imaging. His care will be transitioned to hospice. Exam Data for Last 24 hours Vital signs and Labs for Last 24 Hours: Temp Pulse Resp BP Pulse Ox FiO2 98.0 F 106 H 21 131/70 92 L 40 12/09/22 07:46 12/09/22 07:46 12/09/22 07:46 12/09/22 07:46 12/09/22 07:46 12/09/22 05:50 Laboratory Results - last 24 hr 12/08/22 09:12: Troponin I < 0.01 12/08/22 09:12: Ammonia < 9 L 12/08/22 12:05: POC Glucose 150 H 12/08/22 16:42: POC Glucose 120 H 12/08/22 20:53: POC Glucose 231 H 12/09/22 05:53: POC Glucose 211 H 12/09/22 07:15: WBC 7.7 D, RBC 4.07 L, Hgb 11.8 L, Hct 37.5 L, MCV 92.0, MCH 29.0, MCHC 31.5 L, RDW 14.7, Plt Count 194, MPV 9.3, Neut % (Auto) 88.7 H, Lymph % (Auto) 7.3 L, [place] % (Auto) 3.8, Eos % (Auto) 0.1, Baso % (Auto) 0.0 L, Neut # (Auto) 6.9, Lymph
[2022-12-09 09:27] LABS: Lymphocytes % 8 % (10-50); Monocytes % 3 % (2-9); Neutrophils % 89 % (42-76); Total Cells Counted 100
[2022-12-09 09:28] LABS: Platelet Estimate Normal; RBC Morphology Normal
--- NOTE | 2022-12-09 10:12 | PC.NURSE ---
called report to oly at [facility]
[2022-12-09 11:04] LABS: Hemoglobin A1C 8.3 % (4.0-6.0)
[2022-12-09 11:14] VITALS: PULSE 104; PULSE 108; O2SAT 91
[2022-12-09 11:17] LABS: POC Glucose,Bedside 258 (70-110)
== END 2022-12-09 12:36 | disposition hospice, inpatient (51) ==
LOC: ER 01:41 → 2ND 05:29
PROVIDERS: Admitting Provider Family Medicine; Emergency Provider Emergency Medicine; PCP Internal Medicine Adolescent Medicine; Visit Provider Family Medicine
DX: J96.21 Acute and chronic respiratory failure with hypoxia (principal); N17.9 Acute kidney failure, unspecified; J96.22 Acute and chronic respiratory failure with hypercapnia; I50.33 Acute on chronic diastolic (congestive) heart failure; J69.0 Pneumonitis due to inhalation of food and vomit; I48.91 Unspecified atrial fibrillation; E11.9 Type 2 diabetes mellitus without complications; Z79.01 Long term (current) use of anticoagulants; Z79.891 Long term (current) use of opiate analgesic; I11.0 Hypertensive heart disease with heart failure
CPT/HCPCS: G0378; 36415; 70450; 71045; 80048; 80053; 81001; 82009; 82140; 82803; 82962; 83036; 83605; 83735; 83880; 84145; 84484; 85007; 85025; 85651; 86140; 87040; 87635; 87636; 93005; 93306; 94640; 94660; 94760; 99285; C9803; J0131; J2310; U0003; U0005